=== PATIENT | female | born 1955 | race Caucasian/White ===

== ENCOUNTER 2018-12-10 19:12 | Emergency (ER) | payer MEDICAID ==
[2018-12-10] MEDS ORDERED: HYDROmorphone 1 MG/ML Syringe IM ONE ×2 (19:35→21:25)
--- NOTE | 2018-12-10 21:00 | EDM.PDOC ---
ED HPI GENERAL MEDICAL PROBLEM - General Chief Complaint: Lower Extremity Injury/Pain Stated Complaint: [facility] Time Seen by Provider: 12/10/18 19:27 Source of Information: Reports: Patient, RN Notes Reviewed History Limitations: Reports: No Limitations - History of Present Illness INITIAL COMMENTS - FREE TEXT/NARRATIVE: Patient is a 63-year-old female who presents to the ED for the evaluation of a left knee injury. She states that she was at the [employer] store when she slipped and fell with a direct blow to her left knee she felt something pop at this time. She did try to get up but was unable to get up with her left knee so she ended up sitting on her right knee for some time and also has pain in her right knee. She can move her right leg appropriately, however she is unable to move her left leg up or down but she can move it [id number]. She would rate her pain at a 10 out of 10. She did not take anything for pain relief before she was brought to the ED for evaluation. She states that she still can feel touch in her toes, and she can still wiggle her toes. She has no pain in her hip or ankle. She did not hit her head or have a loss of consciousness. Left Knee Pain Score (Numeric/FACES): 10 - Related Data Allergies Allergy/AdvReac Type Severity Reaction Status Date / Time No Known Allergies Allergy Verified 12/10/18 19:18 Home Meds: Home Meds Cetirizine [ZyrTEC] 1 tab PO DAILY 08/31/15 [History] Furosemide [Lasix] 80 mg PO DAILY 08/31/15 [History] Metoprolol Tartrate 25 mg PO BID #60 tablet 08/31/15 [Rx] Montelukast [Singulair] 1 tab PO DAILY 08/31/15 [History] Warfarin [Coumadin] 5 mg PO SUTUWEFRSA 08/31/15 [History] diphenhydrAMINE [Benadryl] 1 tab PO DAILY 08/31/15 [History] Albuterol Sulfate [Proair Hfa] 1 puff INH Q6HR PRN 07/07/16 [History] Diltiazem [Cardizem CD] 180 mg PO DAILY 07/07/16 [History] Iron/Vitamin C 1 tab PO DAILY 07/07/16 [History] Lactobacillus Combination No.4 [Probiotic] 1 each PO DAILY 07/07/16 [History] Omeprazole Magnesium [Prilosec Otc] 1 tab PO DAILY 07/07/16 [History] Potassium Chloride 20 meq PO DAILY 07/07/16 [History] Warfarin [Coumadin] 3 mg PO MOTH 07/07/16 [History] Past Medical History HEENT History: Reports: Impaired Vision, Sinusitis Other HEENT History: wears bifocals Cardiovascular History: Reports: Afib, Heart Failure Other Cardiovascular History: aflutter, vtach, lower extremity edema Respiratory History: Reports: Other (See Below) Other Respiratory History: pulmonary nodule Gastrointestinal History: Reports: GERD Other Gastrointestinal History: hepatomegaly Genitourinary History: Reports: Renal Calculus, Urinary Incontinence Other Genitourinary History: kidney stones, UTI Other [employer] History: 2 para 2 Musculoskeletal History: Reports: Back Pain, Chronic Other Musculoskeletal History: leg cramps Endocrine/Metabolic History: Reports: Obesity/BMI 30+, Other (See Below) Other Endocrine/Metabolic History: enlarged thyroid Hematologic History: Reports: Anemia, Blood Transfusion(s) Oncologic (Cancer) History: Reports: None - Past Surgical History GI Surgical History: Reports: Appendectomy - History Comment History Comment: Pt uses albuteral inhaler when she gets a sinus infection. 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 Denies: Joint Swelling Skin: Reports: No Symptoms Neurological: Reports: No Symptoms Psychiatric: Reports: No Symptoms ED EXAM, GENERAL - Physical Exam Exam: See Below Exam Limited By: No Limitations General Appearance: Alert, WD/WN, No Apparent Distress Ears: Normal External Exam Nose: Normal Inspection Throat/Mouth: Normal Inspection, Normal Oropharynx Head: Atraumatic, Normocephalic Neck: Normal Inspection Respiratory/Chest: No Respiratory Distress, Lungs Clear, Normal Breath Sounds, No Accessory Muscle Use, Chest Non-Tender Cardiovascular: Normal Peripheral Pulses, Regular Rate, Rhythm, No Murmur GI/Abdominal: Normal Bowel Sounds, Soft, Non-Tender, No Distention Back Exam: Normal Inspection Extremities: Normal Inspection, Normal Capillary Refill, Limited Range of Motion (Of left leg. She is able to move the leg from left to right, she cannot move the leg in a straight leg fashion. It is hard to bend at the knee as well.). No: Joint Swelling, Leg Pain, Mottled, Pallor Neurological: Alert, Oriented, Normal Cognition, No Motor/Sensory Deficits Psychiatric: Normal Affect, Normal Mood Skin Exam: Warm, Dry, Intact, Normal Color, No Rash Course - Vital Signs Last Recorded V/S: Last Vital Signs Temp 97.8 F 12/10/18 19:16 Pulse 81 12/10/18 19:16 Resp 17 12/10/18 19:16 BP Pulse Ox 100 12/10/18 19:16 - Orders/Labs/Meds Orders: Active Orders 24 hr Category Date Time Status Knee Min 4V Lt [CR] Stat Exams 12/10/18 19:28 Ordered Meds: Medications Discontinued Medications Generic Name Dose Route Start Last Admin Trade Name Freq PRN Reason Stop Dose Admin Hydromorphone HCl 0.5 mg 12/10/18 19:35 12/10/18 19:39 Dilaudid IM 12/10/18 19:36 0.5 mg ONETIME ONE Administration Hydromorphone HCl 1 mg 12/10/18 21:25 12/10/18 21:33 Dilaudid IM 12/10/18 21:26 1 mg ONETIME ONE Administration - Re-Assessments/Exams Free Text/Narrative Re-Assessment/Exam: 12/10/18 21:26 Patient presents to the ED for the evaluation of left knee pain. I did obtain a left knee x-ray, this did show a fractured left kneecap. His was reviewed with Dr. Jim and he states that it is a transverse fracture with minimal displacement. She has been given a total of 1.5 mg IM Dilaudid in the ER for pain management. Dr. [facility], he states that he does have a clinic opening tomorrow at 10 AM. However this is unfavorable to the family and patient has a livein [place] and it is 9:[address] Thomas gave them the option to take the [facility]'s number tomorrow and call for an appointment with Dr. Pino and possibly Sunday with possible repair this weekend, however he cannot speak to Dr. Pino's schedule so he is not aware if this is an actual possibility. He states that he would be able to see the patient at clinic on Sunday as well if she was not able to get in to see Dr. Neida Campos earlier. As for management he recommends putting the patient in a knee immobilizer, she may be weightbearing as tolerated. She will be given hydrocodone for pain management. Departure - Departure Time of Disposition: 21:30 Disposition: Home, Self-Care 01 Condition: Fair Clinical Impression: Fractured patella Qualifiers: Encounter type: initial encounter Fracture type: closed Fracture morphology: unspecified fracture morphology Fracture alignment: displaced Laterality: left Qualified Code(s): S82.002A - Unspecified fracture of left patella, initial encounter for closed fracture - Discharge Information *PRESCRIPTION DRUG MONITORING PROGRAM REVIEWED*: No *COPY OF PRESCRIPTION DRUG MONITORING REPORT IN PATIENT OPAL: No Instructions: Pain Medicine Instructions, [id number], Patellar Fracture, Adult Forms: ED Department Discharge Additional Instructions: You have been evaluated in the ED for your left knee pain. Your x-ray did demonstrate that you did fracture your left kneecap. Please call the appointment [facility] in [facility] as early as possible tomorrow for an appointment later this week with Dr. Centeno. Dr. Thomas was the orthopedist that was consulted on your case, he states that he would be able to see you on Sunday as well if Dr. Neida Sher is not available to see you this week. You have been given [place] 01/31/25 for pain relief please take this every 6 hours as needed. You may also take [id number] Tylenol 500 mg or 6R milligrams ibuprofen as needed every 6 hours for pain relief. The Gallaway tablets do have an opioid analgesic in them and can be somewhat constipating, recommend that you start taking MiraLAX on a daily basis if you are taking the Gallaway pain tablets. Also please increase her fluid intake as this will kulkarni off constipation as well. You may weight-bear as tolerated with the knee immobilizer. Please return to the ED if her symptoms change or worsen. - My Orders Last 24 Hours: My Active Orders 12/10/18 19:28 Knee Min 4V Lt [CR] Stat - Assessment/Plan Last 24 Hours: My Active Orders 12/10/18 19:28 Knee Min 4V Lt [CR] Stat
--- NOTE | 2018-12-11 08:12 | CR ---
Left knee: Four views of the left knee were obtained. Comparison: No previous knee exam. Slightly displaced fracture involving the inferior pole of the patella is seen. Medial and lateral joint compartments are maintained in height. No additional fracture or other bony abnormality is seen. Soft tissue swelling and small joint effusion is seen. Impression: 1. Slightly displaced fracture involving the inferior pole of the patella. 2. Soft tissue swelling and small joint effusion. Diagnostic code #3
== END 2018-12-10 22:03 | disposition home or self-care (01) ==
LOC: JD.ED 19:12
DX: S82.002A Unspecified fracture of left patella, initial encounter for closed fracture (principal); I50.9 Heart failure, unspecified; I48.91 Unspecified atrial fibrillation; D64.9 Anemia, unspecified; E66.9 Obesity, unspecified; Z79.899 Other long term (current) drug therapy; Z79.01 Long term (current) use of anticoagulants; Z90.49 Acquired absence of other specified parts of digestive tract; W01.0XXA Fall on same level from slipping, tripping and stumbling without subsequent striking against object, initial encounter
CPT/HCPCS: 73564; 99283; J1170

== ENCOUNTER 2018-12-18 07:32 | Day surgery (SDC) | payer MEDICAID ==
[~2018-12-18 07:32] MED LIST: Lidocaine 1% PF 2 ML SDV ONE; Lidocaine 1%/Sod Bicarbonate in NS 8.4% 1 ML Syringe IDERM PRN; Midazolam 1 MG/ML 2 ML SDV ONE; Propofol 200 MG/20 ML SDV ONE; Sodium Chloride 0.9% 10 ML Syringe FLUSH PRN; ceFAZolin 1 GM Vial ONE; fentaNYL 100 MCG/2 ML SDV ONE
[2018-12-18] MEDS ORDERED: Bupivacaine 0.25% 30 ML SDV ONE (07:54)
--- NOTE | 2018-12-18 08:00 | PCM.PREANE ---
Preanesthetic Assessment - Procedure Proposed Procedure: ORIF Left Patella fracture - Anesthesia/Transfusion/Family Hx Anesthesia History: Prior Anesthesia Without Reaction Family History of Anesthesia Reaction: No Transfusion History: Prior Transfusion Without Reaction (history after childbirth) Intubation History: Unknown - Review of Systems General: No Symptoms Pulmonary: Wheezing (in august of 2018) Cardiovascular: Dyspnea on Exertion Gastrointestinal: No Symptoms Neurological: No Symptoms Other: Reports: None - Physical Assessment NPO Status Date: 12/17/18 NPO Status Time: 22:00 Pulse: 95 O2 Sat by Pulse Oximetry: 93 Respiratory Rate: 20 Blood Pressure: 147/81 Temperature: 36.4 C Height: 1.68 m Weight: 133.6 kg ASA Class: 4 Mental Status: Alert & Oriented x3 Airway Class: Mallampati = 1 Dentition: Reports: Normal Dentition Thyro-Mental Finger Breadths: 3 Mouth Opening Finger Breadths: 4 ROM/Head Extension: Limited/Partial Lungs: Clear to Auscultation (stiff right side per patient no injury just stiff ) Cardiovascular: Regular Rate, Regular Rhythm - Lab Values: Laboratory Last Values MRSA (PCR) Negative 12/17/18 09:10 - Allergies Allergies/Adverse Reactions: Allergies Allergy/AdvReac Type Severity Reaction Status Date / Time No Known Allergies Allergy Verified 12/17/18 13:31 - Blood Blood Available: No - Anesthesia Plan Pre-Op Medication Ordered: None (took Am metroprolol ) - Acknowledgements Anesthesia Type Planned: General Anesthesia Pt an Appropriate Candidate for the Planned Anesthesia: Yes Alternatives and Risks of Anesthesia Discussed w Pt/Guardian: Yes Pt/Guardian Understands and Agrees with Anesthesia Plan: Yes PreAnesthesia Questionnaire HEENT History: Reports: Allergic Rhinitis, Impaired Vision, Sinusitis Other HEENT History: wears bifocals, partial Cardiovascular History: Reports: Afib, Arrhythmia, Heart Failure Other Cardiovascular History: aflutter, vtach, lower extremity edema Respiratory History: Reports: Other (See Below) Other Respiratory History: pulmonary nodule, dypsnea, pneumonia Gastrointestinal History: Reports: GERD Other Gastrointestinal History: hepatomegaly Genitourinary History: Reports: Renal Calculus, Urinary Incontinence Other Genitourinary History: kidney stones, UTI Other OB/BYN History: 2 para 2 Musculoskeletal History: Reports: Back Pain, Chronic Other Musculoskeletal History: leg cramps Neurological History: Reports: None Psychiatric History: Reports: None Endocrine/Metabolic History: Reports: Obesity/BMI 30+, Other (See Below) Other Endocrine/Metabolic History: enlarged thyroid Hematologic History: Reports: Anemia, Blood Transfusion(s) Immunologic History: Reports: None Oncologic (Cancer) History: Reports: None Dermatologic History: Reports: Other (See Below) Other Dermatologic History: rojas, open wounds - Past Surgical History Head Surgeries/Procedures: Reports: None Respiratory Surgical History: Reports: None GI Surgical History: Reports: Appendectomy, Colonoscopy, EGD Neurological Surgical History: Reports: None Oncologic Surgical History: Reports: None - History Comment History Comment: Pt uses albuteral inhaler when she gets a sinus infection. Denies asthma - SUBSTANCE USE Smoking Status *Q: Former Smoker Recreational Drug Use History: No - HOME MEDS Home Medications: Home Meds Furosemide [Lasix] 60 mg PO DAILY 08/31/15 [History] Metoprolol Tartrate 25 mg PO BID #60 tablet 08/31/15 [Rx] Montelukast [Singulair] 10 mg PO BEDTIME 08/31/15 [History] Warfarin [Coumadin] 5 mg PO SUTUWEFRSA 08/31/15 [History] diphenhydrAMINE [Benadryl] 25 tab PO BEDTIME 08/31/15 [History] Diltiazem [Cardizem CD] 180 mg PO DAILY 07/07/16 [History] Omeprazole Magnesium [Prilosec Otc] 20 mg PO DAILY 07/07/16 [History] Potassium Chloride 20 meq PO DAILY 07/07/16 [History] Warfarin [Coumadin] 3 mg PO MOTH 07/07/16 [History] - CURRENT (IN HOUSE) MEDS Current Meds: Current Medications Lactated Ringer's (Ringers, Lactated) 1,000 mls @ 125 mls/hr IV ASDIRECTED ROLO Stop: 12/18/18 23:00 Lidocaine/Sodium Bicarbonate (Buffered Lidocaine 1% In Ns 8.4%) 0.25 ml IDERM ONETIME PRN PRN Reason: Prior to IV Start Stop: 12/18/18 18:00 Sodium Chloride (Saline Flush) 10 ml FLUSH ASDIRECTED PRN PRN Reason: Keep Vein Open Stop: 12/18/18 18:00 Discontinued Medications Cefazolin Sodium (Ancef) Confirm Administered Dose 2 gm .ROUTE .STK-MED ONE Stop: 12/18/18 07:29 Fentanyl (Sublimaze) Confirm Administered Dose 100 mcg .ROUTE .STK-MED ONE Stop: 12/18/18 07:22 Lidocaine HCl (Xylocaine-Mpf 1%) Confirm Administered Dose 6 ml .ROUTE .STK-MED ONE Stop: 12/18/18 07:23 Midazolam HCl (Versed 1 Mg/Ml) Confirm Administered Dose 2 mg .ROUTE .STK-MED ONE Stop: 12/18/18 07:22 Propofol (Diprivan 20 Ml) Confirm Administered Dose 400 mg .ROUTE .STK-MED ONE Stop: 12/18/18 07:21
[2018-12-18] MEDS: Lactated Ringers 1,000 ML IV SCH ×2 (08:15→12:14)
[2018-12-18] MEDS ORDERED: Ondansetron 4 MG/2 ML SDV IVPUSH PRN (08:26)
[2018-12-18] MEDS ORDERED: Phenylephrine/Normal Saline 100 MCG/ML 10 ML Syringe ONE (09:00)
[2018-12-18] MEDS ORDERED: Dexamethasone 4 MG/ML SDV ONE (09:00)
[2018-12-18] MEDS ORDERED: Ondansetron 4 MG/2 ML SDV ONE ×2 (09:00→10:14)
[2018-12-18] MEDS ORDERED: Scopolamine 1.5 MG Transdermal Patch TRDERM ONE (09:00)
[2018-12-18] MEDS ORDERED: ceFAZolin 1 GM Vial ONE (09:01)
[2018-12-18] MEDS ORDERED: HYDROmorphone 0.5 MG/0.5 ML Syringe ONE ×4 (09:28→12:07)
[2018-12-18] MEDS ORDERED: EPINEPHrine 1 MG/ML SDV ONE (10:23)
[2018-12-18] MEDS ORDERED: Ropivacaine 0.5% 5 MG/ML 30 ML SDV ONE (10:23)
--- NOTE | 2018-12-18 10:45 | CR ---
Left patella: Two fluoroscopic spot views were obtained of the left patella. Study obtained utilizing C-arm device. Comparison: Prior left knee study of 12/10/18. Study shows placement of 2 pins across the patella. Patellar fracture is noted within the lower pole. Fluoroscopy time given as 57.5 seconds. Impression: 1. Procedural study as noted above. Diagnostic code #2
--- NOTE | 2018-12-18 11:00 | PCM.POSTAN ---
POST ANESTHESIA ASSESSMENT - MENTAL STATUS Mental Status: Other (drowsy) - VITAL SIGNS SaO2: 96 (2LNC ) Resp Rate: 16 Blood Pressure: 140/83 Temperature: 37.1 C - RESPIRATORY Respiratory Status: Respiratory Rate WNL, Airway Patent, O2 Saturation Stable, Supplemental Oxygen - CARDIOVASCULAR CV Status: Pulse Rate WNL, Blood Pressure Stable - GASTROINTESTINAL GI Status: No Symptoms - PAIN Pain Score: 0 - POST OP HYDRATION Hydration Status: Adequate & Stable
[2018-12-18] MEDS: fentaNYL 100 MCG/2 ML SDV IVPUSH PRN ×2 (11:15→11:35)
[2018-12-18] MEDS ORDERED: Lidocaine 1% PF 2 ML SDV ONE (11:24)
--- NOTE | 2018-12-18 12:01 | PCM.SN ---
- Free Text/Narrative Note: Left selective femoral nerve block at the adductor canal for post-procedure pain control under US guidance requested by Dr. Naidu. Time Out: 1125 Start: 1125 End: 1144 Chart reviewed. Consent signed. Questions answered. Appropriate monitors applied. Time out performed. Left mid-shaft femur identified with ultrasound, scanning medially of femur, the femoral artery in the adductor canal visualized , and the femoral nerve located laterally to the artery. The skin was prepped lateral to the ultrasound probe with chlorahexadine times two. The 21ga 4 insulated block needle was inserted under direct ultrasound guidance into the adductor canal. 25mL of 0.5% ropivacaine with 1:200,000 epinephrine was injected circumferentially around the nerve with intermittent negative aspiration noted. (Positive heme noted prior to one injection, needle redirected , and following aspirations negative). Patient tolerated the procedure well. Sterile technique noted along with sterile gloves, mask, and sterile probe cover. See picture on progress note and vital signs on nurses notes. Block completed in PACU. Mishel Trejo CRNA
[2018-12-18] MEDS ORDERED: HYDROmorphone 0.5 MG/0.5 ML Syringe IVPUSH PRN (12:09)
--- NOTE | 2018-12-18 13:45 | PCM48HPAN ---
Post Anesthesia Note - EVALUATION WITHIN 48HRS OF ANESTHETIC Vital Signs in Normal Range: Yes Patient Participated in Evaluation: Yes Respiratory Function Stable: Yes Airway Patent: Yes Cardiovascular Function Stable: Yes Hydration Status Stable: Yes Pain Control Satisfactory: Yes (/10 RN to give ORAL MEDS) Nausea and Vomiting Control Satisfactory: Yes Mental Status Recovered: Yes Pulse Rate: 95 Resp Rate: 16 Temperature: 37.1 C Blood Pressure: 140/83
[2018-12-18] MEDS: Acetaminophen/HYDROcodone 325-5 MG Tab PO PRN ×3 (14:02→20:02)
[2018-12-18 20:45] VITALS: BP 159/62
--- NOTE | 2018-12-23 07:14 | PCM.OPNOTE ---
- General Post-Op/Procedure Note Date of Surgery/Procedure: 12/18/18 Operative Procedure(s): open reduction internal fixation of left patellar fracture Pre Op Diagnosis: left inferior pole of patella fracture Post-Op Diagnosis: Same Anesthesia Technique: General ET Tube, Regional Block Primary Surgeon: Dagoberto Naidu Anesthesia Provider: [employer] Equipment Erector: Annika Rivera EBL in mLs: 30 Complications: None Condition: Good
--- NOTE | 2018-12-23 07:47 | OR ---
DATE OF OPERATION: 12/18/2018 SURGEON: Dagoberto Naidu MD OPERATION PERFORMED: Open reduction and internal fixation of left patella fracture PREOPERATIVE DIAGNOSIS: Left inferior pole of the patella fracture. POSTOPERATIVE DIAGNOSIS: Left inferior pole of the patella fracture. ANESTHESIA: General endotracheal intubation with regional block. [employer] SALES HOST/HOSTESS: Annika Rivera PA-C. ANESTHESIA PROVIDER: Yohan Ohara. ESTIMATED BLOOD LOSS: 30 mL. COMPLICATIONS: None. CONDITION: Stable. DESCRIPTION OF PROCEDURE: The patient was identified in the preop holding area. Proper site marked and identified by the surgeon. The patient was taken back to the operative theater, where after adequate anesthesia, the patient's left lower extremity was sterilely prepped and draped in the usual sterile fashion. After a nonsterile tourniquet was applied, the patient received 2 g of IV Ancef. A time-out was performed. At this time, the left lower extremity was exsanguinated. Tourniquet was insufflated to 300 mmHg. Standard anterior incision was made. This was taken down to the Kumar fascia. The fracture site was then identified. All soft tissue was taken out of the fracture site. It was irrigated and rongeured all fracture hematoma. At this time, I did attempt to put 2 guidepins for 5.0 cannulated screws, but at this time the inferior pole portion was too small to be able to adequately use cannulated screws in this region secondary to the very small nature as well as fragmented nature of the inferior pole of the patella. At this time, it was decided that I would treat this more like a patellar tendon avulsion type injury. So, at this time, a #5 FiberWire was whipstitched in a modified Krackow stitch through the patellar tendon and the bony fragment, and at this time, 2 guidepins were then placed parallel to each other on either side of the patella and a Hewson suture passer was then utilized to shuttle the #5 FiberWire to the quadriceps tendon. At this time, tension was then applied in utilizing C-arm fluoroscopy that was tensioned in the proper position for the inferior pole of the patella to have bony contact with the remaining patella. The small inferior pole of the patella fracture showed no signs of articular extension and it was just a small avulsion injury. At this time, another #5 FiberWire was used for oversewing of the retinaculum over the top of the bony fragment using [id number] sutures all the way from just short of lateral all the way medial. It was found to have adequate apposition at this point with fixation. Adequate saline was irrigated through the wound. Stratafix was used subcutaneously. Prineo was used for the skin. The patient was placed in a sterile soft dressing and sent to PACU in stable condition. COTY /[id number]
== END 2018-12-18 20:30 | disposition home or self-care (01) ==
LOC: JD.SDS 07:32 → JD.MS 15:56 → JD.SDS 20:30
PROVIDERS: ATTEND Orthopaedic Surgery
DX: S82.002A Unspecified fracture of left patella, initial encounter for closed fracture (principal); E66.01 Morbid (severe) obesity due to excess calories; Z68.42 Body mass index [BMI] 45.0-49.9, adult; K21.9 Gastro-esophageal reflux disease without esophagitis; I48.91 Unspecified atrial fibrillation; D50.9 Iron deficiency anemia, unspecified; Z79.899 Other long term (current) drug therapy
CPT/HCPCS: 27524; 36415; 64447; 76000; 85610; 87641; A9270; J0171; J0690; J1100; J1170; J2001; J2250; J2370; J2405; J2704; J2795; J3010; J3490; J7120; 01392; 64450

== ENCOUNTER 2019-12-05 16:02 | Emergency (ER) | payer MEDICAID ==
[2019-12-05 16:13] VITALS: BP 168/82; PULSE 99
[2019-12-05] MEDS ORDERED: Sodium Chloride 0.9% 10 ML Syringe FLUSH PRN (16:42)
[2019-12-05] MEDS ORDERED: Albuterol/Ipratropium 3.0-0.5 MG/3 ML Neb Soln NEB ONE (16:44)
[2019-12-05] MEDS ORDERED: Lactated Ringers 1,000 ML IV SCH (16:45)
--- NOTE | 2019-12-05 19:59 | CR ---
Chest: 2 views of the chest were obtained. Comparison: Prior chest x-ray of 09/19/18. Heart size is mildly enlarged. Pulmonary vessels are increased believed to represent pulmonary vascular congestion. Minimal thickening of the right minor fissure is seen compatible with minimal intrafissural fluid. Bony structures are unremarkable. No alveolar type densities are seen. Impression: 1. Findings radiographically have the appearance of CHF. Given the clinical history, difficult to exclude possible superimposed viral bronchitis as causing the cardiac decompensation. If no clinical findings of CHF are present, severe viral bronchitis is then within the differential. Diagnostic code #5 Study was dictated in [place] Standard Time
--- NOTE | 2019-12-05 20:15 | EDM.PDOC ---
ED HPI GENERAL MEDICAL PROBLEM - General Chief Complaint: General Stated Complaint: [facility] Time Seen by Provider: 12/05/19 16:07 Source of Information: Reports: Patient, Provider History Limitations: Reports: No Limitations - History of Present Illness INITIAL COMMENTS - FREE TEXT/NARRATIVE: The patient presents by [facility]. She was recently diagnosed with influenza A at the clinic. She has been vomiting and not keeping anything down. She easily gets pneumonia. She has been coughing. Her temp has been as high as 104. She has some low back pain. She has no chest pain or shortness of breath. She has no abdominal pain. She does have a history of A-fib but she has not been able to keep her meds down. Onset: Gradual Duration: Day(s): Severity: Moderate Improves with: Reports: None Worsens with: Reports: None Associated Symptoms: Reports: Nausea/Vomiting. Denies: Chest Pain, Cough, Fever /Chills, Headaches, Shortness of Breath Headache Pain Score (Numeric/FACES): 8 - Related Data Allergies Allergy/AdvReac Type Severity Reaction Status Date / Time No Known Allergies Allergy Verified 12/05/19 16:14 Home Meds: Home Meds Furosemide [Lasix] 60 mg PO DAILY 08/31/15 [History] Metoprolol Tartrate 25 mg PO BID #60 tablet 08/31/15 [Rx] Montelukast [Singulair] 10 mg PO BEDTIME 08/31/15 [History] Warfarin [Coumadin] 5 mg PO SUTUWEFRSA 08/31/15 [History] diphenhydrAMINE [Benadryl] 25 tab PO BEDTIME 08/31/15 [History] Diltiazem [Cardizem CD] 180 mg PO DAILY 07/07/16 [History] Omeprazole Magnesium [Prilosec Otc] 20 mg PO DAILY 07/07/16 [History] Potassium Chloride 20 meq PO DAILY 07/07/16 [History] Warfarin [Coumadin] 3 mg PO MOTH 07/07/16 [History] Cholecalciferol (Vitamin D3) [Vitamin D3] 5,000 unit PO DAILY 12/18/18 [History] Albuterol [Proventil HFA] 2 puff INH Q4H PRN #1 inhaler 12/05/19 [Rx] Doxycycline [Vibramycin] 100 mg PO BID #20 cap 12/05/19 [Rx] Hydrocodone/Acetaminophen [Hydrocodon-Acetaminophen 5-325] 1 - 2 each PO Q6HR PRN #10 tablet 12/05/19 [Rx] Ondansetron [Zofran ODT] 4 mg PO Q6H PRN #20 tab.dis 12/05/19 [Rx] Past Medical History HEENT History: Reports: Impaired Vision, Sinusitis Other HEENT History: wears bifocals Cardiovascular History: Reports: Afib, Heart Failure Other Cardiovascular History: aflutter, vtach, lower extremity edema Respiratory History: Reports: Other (See Below) Other Respiratory History: pulmonary nodule Gastrointestinal History: Reports: GERD Other Gastrointestinal History: hepatomegaly Genitourinary History: Reports: Renal Calculus, Urinary Incontinence Other Genitourinary History: kidney stones, UTI Other [employer] B[employer] WR[employer] History: 2 para 2 Musculoskeletal History: Reports: Back Pain, Chronic Other Musculoskeletal History: leg cramps Neurological History: Reports: None Psychiatric History: Reports: None Endocrine/Metabolic History: Reports: Obesity/BMI 30+, Other (See Below) Other Endocrine/Metabolic History: enlarged thyroid Hematologic History: Reports: Anemia, Blood Transfusion(s) Immunologic History: Reports: None Oncologic (Cancer) History: Reports: None Dermatologic History: Reports: Other (See Below) Other Dermatologic History: rojas, open wounds - Past Surgical History Head Surgeries/Procedures: Reports: None GI Surgical History: Reports: Appendectomy Neurological Surgical History: Reports: None Oncologic Surgical History: Reports: None - History Comment History Comment: Pt uses albuteral inhaler when she gets a sinus infection. 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 Denies: Shortness of Breath Cardiovascular: Reports: No Symptoms Endocrine: Reports: No Symptoms GI/Abdominal: Reports: Nausea, Vomiting. Denies: Abdominal Pain : Reports: No Symptoms Musculoskeletal: Reports: No Symptoms ED EXAM, GENERAL - Physical Exam Exam: See Below Exam Limited By: No Limitations General Appearance: Alert, No Apparent Distress Ears: Normal External Exam Nose: Normal Inspection Head: Atraumatic, Normocephalic Neck: Normal Inspection Respiratory/Chest: No Respiratory Distress, Decreased Breath Sounds Cardiovascular: No Edema, No Murmur, Irregularly Irregular GI/Abdominal: Soft, Non-Tender, No Organomegaly, No Mass Back Exam: Normal Inspection Extremities: Normal Inspection EKG INTERPRETATION EKG Date: 12/05/19 Time: 17:02 Rhythm: A-Fib Rate (Beats/Min): 96 [place]: Normal QRS: Normal ST-T: Normal QT: Normal Course - Vital Signs Last Recorded V/S: Last Vital Signs Temp 101.2 F H 12/05/19 16:09 Pulse 99 12/05/19 16:09 Resp 18 12/05/19 16:09 BP 168/82 H 12/05/19 16:09 Pulse Ox 100 12/05/19 16:44 - Orders/Labs/Meds Orders: Active Orders 24 hr Category Date Time Status EKG Documentation Completion [RC] ASDIRECTED Care 12/05/19 16:45 Active Peripheral IV Care [RC] . DIRECTED Care 12/05/19 16:42 Active RT Aerosol Therapy [RC] ASDIRECTED Care 12/05/19 16:44 Active HYDROmorphone [Dilaudid] Med 12/05/19 20:30 Once 0.5 mg IVPUSH ONETIME ONE Lactated Ringers [Ringers, Lactated] 1,000 ml Med 12/05/19 16:45 Active IV ASDIRECTED Sodium Chloride 0.9% [Saline Flush] Med 12/05/19 16:42 Active 10 ml FLUSH ASDIRECTED PRN ED Antiemetic Medication Reflex [OM.PC] Stat Oth 12/05/19 16:42 Ordered Peripheral IV Insertion Adult [OM.PC] Stat Oth 12/05/19 16:42 Ordered EKG 12 Lead [EK] Stat Ther 12/05/19 16:44 Ordered Medication Orders Lactated Ringer's (Ringers, Lactated) 1,000 mls @ 1,000 mls/hr IV ASDIRECTED ROLO Last Admin: 12/05/19 17:09 Dose: 1,000 mls/hr Sodium Chloride (Saline Flush) 10 ml FLUSH ASDIRECTED PRN PRN Reason: Keep Vein Open Last Admin: 12/05/19 17:10 Dose: 10 ml Labs: Laboratory Tests 12/05/19 12/05/19 12/05/19 Range/Units 17:03 17:03 18:05 WBC 6.14 (3.98-10.04) K/mm3 RBC 4.11 (3.98-5.22) M/mm3 Hgb 10.5 L (11.2-15.7) gm/dl Hct 33.9 L (34.1-44.9) % MCV 82.5 (79.4-94.8) fl MCH 25.5 L (25.6-32.2) pg MCHC 31.0 L (32.2-35.5) g/dl RDW Std Deviation 55.6 H (36.4-46.3) fL Plt Count 190 D (182-369) K/mm3 MPV 9.7 (9.4-12.3) fl Neut % (Auto) 80.1 H (34.0-71.1) % Lymph % (Auto) 9.6 L (19.3-51.7) % [place] % (Auto) 9.6 (4.7-12.5) % Eos % (Auto) 0 L (0.7-5.8) Baso % (Auto) 0.2 (0.1-1.2) % Neut # (Auto) 4.92 (1.56-6.13) K/mm3 Lymph # (Auto) 0.59 L (1.18-3.74) K/mm3 [place] # (Auto) 0.59 H (0.24-0.36) K/mm3 Eos # (Auto) 0.00 L (0.04-0.36) K/mm3 Baso # (Auto) 0.01 (0.01-0.08) K/mm3 Manual Slide Review Abnormal smear Sodium 139 (136-145) mEq/L Potassium 3.6 (3.5-5.1) mEq/L Chloride 107 (98-107) mEq/L Carbon Dioxide 23 (21-32) mEq/L Anion Gap 12.6 (5-15) BUN 13 (7-18) mg/dL Creatinine 0.7 (0.55-1.02) mg/dL Est Cr Clr Drug Dosing 77.01 mL/min Estimated GFR (MDRD) > 60 (>60) mL/min BUN/Creatinine Ratio 18.6 H (14-18) Glucose 96 (80-115) mg/dL Calcium 7.9 L D (8.5-10.1) mg/dL Total Bilirubin 0.5 (0.2-1.0) mg/dL AST 23 (15-37) U/L ALT 31 (14-59) U/L Alkaline Phosphatase 63 (46-116) U/L Total Protein 6.2 L (6.4-8.2) g/dl Albumin 3.1 L (3.4-5.0) g/dl Globulin 3.1 gm/dL Albumin/Globulin Ratio 1.0 (1-2) Lipase 96 (73-393) U/L Urine Color Yellow (Yellow) Urine Appearance Clear (Clear) Urine pH 7.0 (5.0-8.0) Ur Specific [place] 1.025 (1.005-1.030) Urine Protein Negative (Negative) Urine Glucose (UA) Negative (Negative) Urine Ketones Negative (Negative) Urine Occult Blood Negative (Negative) Urine Nitrite Negative (Negative) Urine Bilirubin Negative (Negative) Urine Urobilinogen 4.0 H (0.2-1.0) Ur Leukocyte Esterase Trace H (Negative) Urine RBC 0-5 (0-5) /hpf Urine WBC 0-5 (0-5) /hpf Ur Squamous Epith Cells 10-20 H (0-5) /hpf Urine Bacteria Few (FEW) /hpf Urine Mucus Few (FEW) /hpf Meds: Medications Generic Name Dose Route Start Last Admin Trade Name Freq PRN Reason Stop Dose Admin Lactated Ringer's 1,000 mls @ 1,000 mls/hr 12/05/19 16:45 12/05/19 17:09 Ringers, Lactated IV 1,000 mls/hr ASDIRECTED ROLO Administration Sodium Chloride 10 ml 12/05/19 16:42 12/05/19 17:10 Saline Flush FLUSH 10 ml ASDIRECTED PRN Administration Keep Vein Open Discontinued Medications Generic Name Dose Route Start Last Admin Trade Name Freq PRN Reason Stop Dose Admin Albuterol/Ipratropium 3 ml 12/05/19 16:44 12/05/19 17:53 Duoneb 3.0-0.5 Mg/3 Ml NEB 12/05/19 16:45 3 ml ONETIME ONE Administration - Re-Assessments/Exams Free Text/Narrative Re-Assessment/Exam: 12/05/19 20:10 I ordered an IV LR bolus, duoneb, CXR and labs. Her EKG shows atrial fibrillation with no acute changes. Her WBC was normal. Her Hgb was low at 10.5. Her CMP looks good. Her UA shows no UTI. Her CXR shows findings radiographically have the appearance of CHF. Given the clinical history, difficult to exclude possible superimposed viral bronchitis as causing the cardiac decompensation. If no clinical findings of CHF are present, several viral bronchitis is then within the differential. 12/05/19 20:30 She has some back pain so I ordered some dilaudid 0.5mg IV. She says she gets pneumonia very easily. I will get her some zithromax. I will also give her some zofran. I will also give her an inhaler. Departure - Departure Time of Disposition: 20:35 Disposition: Home, Self-Care 01 Condition: Good Clinical Impression: Influenza A, Bronchitis Nausea and vomiting Qualifiers: Vomiting type: unspecified Vomiting Intractability: non-intractable Qualified Code(s): R11.2 - Nausea with vomiting, unspecified - Discharge Information *PRESCRIPTION DRUG MONITORING PROGRAM REVIEWED*: No *COPY OF PRESCRIPTION DRUG MONITORING REPORT IN PATIENT OPAL: No Prescriptions: Hydrocodone/Acetaminophen [Hydrocodon-Acetaminophen 5-325] 1 - 2 each PO Q6HR PRN #10 tablet PRN Reason: Pain Doxycycline [Vibramycin] 100 mg PO BID #20 cap Ondansetron [Zofran ODT] 4 mg PO Q6H PRN #20 tab.dis PRN Reason: Nausea\vomiting Referrals: Rachelle Tao PA-C [Primary Care Provider] - 3 Days Forms: ED Department Discharge Additional Instructions: Drink plenty of fluids. Take the zofran every 6 hours as needed for nausea and vomiting. Take the doxycycline 2 times per day for 7 days. Take the hydrocodone as needed for pain. Use the inhaler 2 puffs every 6 hours as needed for any shortness of breath. Please return if you are worse. Sepsis Event Note - Evaluation Sepsis Screening Result: Possible Sepsis Risk - Focused Exam Vital Signs: Vital Signs Temp Pulse Resp BP Pulse Ox Pulse Ox 12/05/19 16:44 100 12/05/19 16:09 101.2 F H 99 18 168/82 H 96 Date Exam was Performed: 12/05/19 Time Exam was Performed: 20:30 - My Orders Last 24 Hours: My Active Orders 12/05/19 16:42 Peripheral IV Care [RC] . DIRECTED Sodium Chloride 0.9% [Saline Flush] 10 ml FLUSH ASDIRECTED PRN ED Antiemetic Medication Reflex [OM.PC] Stat Peripheral IV Insertion Adult [OM.PC] Stat 12/05/19 16:44 RT Aerosol Therapy [RC] ASDIRECTED EKG 12 Lead [EK] Stat 12/05/19 16:45 EKG Documentation Completion [RC] ASDIRECTED Lactated Ringers [Ringers, Lactated] 1,000 ml IV ASDIRECTED 12/05/19 20:30 HYDROmorphone [Dilaudid] 0.5 mg IVPUSH ONETIME ONE - Assessment/Plan Last 24 Hours: My Active Orders 12/05/19 16:42 Peripheral IV Care [RC] . DIRECTED Sodium Chloride 0.9% [Saline Flush] 10 ml FLUSH ASDIRECTED PRN ED Antiemetic Medication Reflex [OM.PC] Stat Peripheral IV Insertion Adult [OM.PC] Stat 12/05/19 16:44 RT Aerosol Therapy [RC] ASDIRECTED EKG 12 Lead [EK] Stat 12/05/19 16:45 EKG Documentation Completion [RC] ASDIRECTED Lactated Ringers [Ringers, Lactated] 1,000 ml IV ASDIRECTED 12/05/19 20:30 HYDROmorphone [Dilaudid] 0.5 mg IVPUSH ONETIME ONE
[2019-12-05] MEDS ORDERED: HYDROmorphone 0.5 MG/0.5 ML Syringe IVPUSH ONE (20:30)
== END 2019-12-05 22:34 | disposition home or self-care (01) ==
LOC: JD.ED 16:02
DX: J10.1 Influenza due to other identified influenza virus with other respiratory manifestations (principal); I48.91 Unspecified atrial fibrillation; I50.9 Heart failure, unspecified; K21.9 Gastro-esophageal reflux disease without esophagitis; E66.9 Obesity, unspecified; Z79.01 Long term (current) use of anticoagulants; Z79.899 Other long term (current) drug therapy; Z68.42 Body mass index [BMI] 45.0-49.9, adult
CPT/HCPCS: 36415; 71046; 80053; 81001; 83690; 85025; 93005; 94640; 96361; 96374; 99285; J1170; J7120; 93010; 99284; J7620-GY

== ENCOUNTER 2019-12-11 12:45 | Inpatient (IN) | payer MEDICAID ==
[2019-12-11] MEDS ORDERED: Albuterol/Ipratropium 3.0-0.5 MG/3 ML Neb Soln NEB ONE (14:45)
[2019-12-11] MEDS ORDERED: methylPREDNISolone Sodium Succinate 125 MG/2 ML SDV IVPUSH ONE (14:46)
[2019-12-11] MEDS ORDERED: Albuterol/Ipratropium 3.0-0.5 MG/3 ML Neb Soln ONE (15:00)
[2019-12-11] MEDS ORDERED: cefTRIAXone 2 GM in Sodium Chloride 0.9% 100 ML IV ONE (15:06)
[2019-12-11] MEDS ORDERED: Ondansetron 4 MG Tab.DIS PO PRN (15:59)
[2019-12-11] MEDS ORDERED: Acetaminophen 325 MG Tab PO PRN (15:59)
[2019-12-11] MEDS ORDERED: Ondansetron 4 MG/2 ML SDV IV PRN (15:59)
--- NOTE | 2019-12-11 15:59 | PCM.HP.2 ---
<Sukhwinder Ferrera - Last Filed: 12/11/19 16:49> H&P History of Present Illness - General Date of Service: 12/11/19 Admit Problem/Dx: Admission Diagnosis/Problem Admission Diagnosis/Problem Pneumonia Source of Information: RN Notes Reviewed - Related Data Allergies/Adverse Reactions: Allergies Allergy/AdvReac Type Severity Reaction Status Date / Time No Known Allergies Allergy Verified 12/11/19 17:17 Home Medications: Home Meds Metoprolol Tartrate 25 mg PO BID #60 tablet 08/31/15 [Rx] Montelukast [Singulair] 10 mg PO BEDTIME 08/31/15 [History] diphenhydrAMINE [Benadryl] 25 mg PO BEDTIME 08/31/15 [History] Diltiazem [Cardizem CD] 180 mg PO DAILY 07/07/16 [History] Cholecalciferol (Vitamin D3) [Vitamin D3] 5,000 unit PO DAILY 12/18/18 [History] Albuterol [Proventil HFA] 2 puff INH Q4H PRN #1 inhaler 12/05/19 [Rx] allopurinoL [Zyloprim] 200 mg PO DAILY 12/11/19 [History] Furosemide [Lasix] 60 mg PO BIDDIURETIC #45 tablet 12/15/19 [Rx] Potassium Chloride 40 meq PO DAILY #60 tab.er.prt 12/15/19 [Rx] Warfarin [Coumadin] 5 mg PO QPM #30 tablet 12/15/19 [Rx] H&P Review of Systems - Review of Systems: Neurological: Reports: Dizziness, Weakness Exam - Vital Signs Vital Signs: Last Vital Signs Temp 97.8 F 12/11/19 12:52 Pulse 69 12/11/19 12:52 Resp 20 12/11/19 12:52 BP 143/73 H 12/11/19 12:52 Pulse Ox 84 L 12/11/19 14:46 - Patient Data Lab Results Last 24 hrs: Laboratory Results - last 24 hr 12/11/19 12/11/19 12/11/19 Range/Units 11:30 11:30 11:30 WBC 3.01 L (3.98-10.04) K/mm3 RBC 4.78 (3.98-5.22) M/mm3 Hgb 11.9 (11.2-15.7) gm/dl Hct 37.2 (34.1-44.9) % MCV 77.8 L D (79.4-94.8) fl MCH 24.9 L (25.6-32.2) pg MCHC 32.0 L (32.2-35.5) g/dl RDW Std Deviation 51.2 H (36.4-46.3) fL Plt Count 229 (182-369) K/mm3 MPV 10.3 (9.4-12.3) fl Neutrophils % (Manual) 66 H (40-60) % Band Neutrophils % 0 (0-10) % Lymphocytes % (Manual) 24 (20-40) % Atypical Lymphs % 0 % Monocytes % (Manual) 6 (2-10) % Eosinophils % (Manual) 4 (0.7-5.8) % Basophils % (Manual) 0 L (0.1-1.2) Platelet Estimate Adequate Poikilocytosis 1+ slight Anisocytosis 1+ slight RBC Morph Comment Not Reportable PT (9.7-12.0) SECONDS INR Puncture Site ABG pH (7.35-7.45) ABG pCO2 (35.0-45.0) mmHg ABG pO2 (80.0-100.0) mmHg ABG HCO3 (22.0-26.0) meq/L ABG O2 Saturation (96.0-97.0) % ABG Base Excess (-2-2.0) Devin Test A-a Gradient mmHg O2 Delivery Device FiO2 (21.00-100.00) % Sodium 142 (136-145) mEq/L Potassium 3.2 L (3.5-5.1) mEq/L Chloride 105 (98-107) mEq/L Carbon Dioxide 27 (21-32) mEq/L Anion Gap 13.2 (5-15) BUN 23 H (7-18) mg/dL Creatinine 1.1 H (0.55-1.02) mg/dL Est Cr Clr Drug Dosing 49.00 mL/min Estimated GFR (MDRD) 50 (>60) mL/min BUN/Creatinine Ratio 20.9 H (14-18) Glucose 110 (80-115) mg/dL Lactic Acid (0.4-2.0) mmol/L Calcium 8.5 (8.5-10.1) mg/dL Total Bilirubin 0.6 (0.2-1.0) mg/dL AST 82 H (15-37) U/L ALT 40 (14-59) U/L Alkaline Phosphatase 90 (46-116) U/L C-Reactive Protein 9.8 H* (<1.0) mg/dL Total Protein 6.3 L (6.4-8.2) g/dl Albumin 3.0 L (3.4-5.0) g/dl Globulin 3.3 gm/dL Albumin/Globulin Ratio 0.9 L (1-2) 12/11/19 12/11/19 12/11/19 Range/Units 11:30 13:59 15:13 WBC (3.98-10.04) K/mm3 RBC (3.98-5.22) M/mm3 Hgb (11.2-15.7) gm/dl Hct (34.1-44.9) % MCV (79.4-94.8) fl MCH (25.6-32.2) pg MCHC (32.2-35.5) g/dl RDW Std Deviation (36.4-46.3) fL Plt Count (182-369) K/mm3 MPV (9.4-12.3) fl Neutrophils % (Manual) (40-60) % Band Neutrophils % (0-10) % Lymphocytes % (Manual) (20-40) % Atypical Lymphs % % Monocytes % (Manual) (2-10) % Eosinophils % (Manual) (0.7-5.8) % Basophils % (Manual) (0.1-1.2) Platelet Estimate Poikilocytosis Anisocytosis RBC Morph Comment PT 31.0 H D (9.7-12.0) SECONDS INR 3.03 Puncture Site Lt radial ABG pH 7.48 H (7.35-7.45) ABG pCO2 32.9 L (35.0-45.0) mmHg ABG pO2 54.0 L (80.0-100.0) mmHg ABG HCO3 23.9 (22.0-26.0) meq/L ABG O2 Saturation 84.9 L (96.0-97.0) % ABG Base Excess 1.2 (-2-2.0) Devin Test Positive A-a Gradient 55 mmHg O2 Delivery Device Room air FiO2 21.00 (21.00-100.00) % Sodium (136-145) mEq/L Potassium (3.5-5.1) mEq/L Chloride (98-107) mEq/L Carbon Dioxide (21-32) mEq/L Anion Gap (5-15) BUN (7-18) mg/dL Creatinine (0.55-1.02) mg/dL Est Cr Clr Drug Dosing mL/min Estimated GFR (MDRD) (>60) mL/min BUN/Creatinine Ratio (14-18) Glucose (80-115) mg/dL Lactic Acid 0.8 (0.4-2.0) mmol/L Calcium (8.5-10.1) mg/dL Total Bilirubin (0.2-1.0) mg/dL AST (15-37) U/L ALT (14-59) U/L Alkaline Phosphatase (46-116) U/L C-Reactive Protein (<1.0) mg/dL Total Protein (6.4-8.2) g/dl Albumin (3.4-5.0) g/dl Globulin gm/dL Albumin/Globulin Ratio (1-2) Result Diagrams: 12/11/19 11:30 12/11/19 11:30 Sepsis Event Note - Focused Exam Vital Signs: Vital Signs Temp Pulse Resp BP Pulse Ox Pulse Ox 12/11/19 14:46 84 L 12/11/19 12:52 97.8 F 69 20 143/73 H 83 L Date Exam was Performed: 12/11/19 Time Exam was Performed: 16:49 Orders Last 24hrs: Active Orders 24 hr Category Date Time Status Patient Status [ADT] Routine ADT 12/11/19 15:59 Active Ambulate [RC] ASDIRECTED Care 12/11/19 15:59 Active EKG 12 Lead [EKG Documentation Completion] [RC] STAT Care 12/11/19 13:13 Active Height and Weight [RC] DAILY Care 12/11/19 15:59 Active Intake and Output [RC] QSHIFT Care 12/11/19 16:02 Active Oxygen Therapy [RC] ASDIRECTED Care 12/11/19 14:46 Active Pulse Oximetry [RC] Q4HR Care 12/11/19 16:02 Active RT Aerosol Therapy [RC] ASDIRECTED Care 12/11/19 14:46 Active RT Aerosol Therapy [RC] ASDIRECTED Care 12/11/19 16:00 Active Up With Assistance [RC] ASDIRECTED Care 12/11/19 15:59 Active VTE/DVT Education [RC] PER UNIT ROUTINE Care 12/11/19 15:59 Active Vital Signs [RC] Q4H Care 12/11/19 15:59 Active OT Evaluation and Treatment [CONS] Routine Cons 12/11/19 15:59 Active PT Evaluation and Treatment [CONS] Routine Cons 12/11/19 15:59 Active Respiratory Care Assess and Treatment [CONS] Routine Cons 12/11/19 15:59 Active Regular Diet [DIET] Diet 12/11/19 Dinner Active CXR [Chest 2V] [CR] Stat Exams 12/11/19 13:57 Taken BASIC METABOLIC PANEL,BMP [CHEM] AM Lab 12/12/19 05:11 Ordered CBC WITH AUTO DIFF [HEME] AM Lab 12/12/19 05:11 Ordered CULTURE BLOOD [BC] Stat Lab 12/11/19 15:20 Received CULTURE BLOOD [BC] Stat Lab 12/11/19 15:27 Received INR,PT,PROTHROMBIN TIME [COAG] DAILY Lab 12/11/19 16:00 Ordered LACTATE DEHYDROGENASE,LDH [CHEM] Stat Lab 12/11/19 11:30 Received MAGNESIUM [CHEM] AM Lab 12/12/19 05:11 Ordered MYCOPLASMA PNEUMONIAE IGM AB [CHEM] Stat Lab 12/11/19 11:30 Received PHOSPHORUS [CHEM] AM Lab 12/12/19 05:11 Ordered PROCALCITONIN [REF] Q48H Lab 12/13/19 05:00 Ordered PROCALCITONIN [REF] Q48H Lab 12/15/19 05:00 Ordered PROCALCITONIN [REF] Q48H Lab 12/17/19 05:00 Ordered PROCALCITONIN [REF] Stat Lab 12/11/19 15:59 Ordered RESPIRATORY PANEL PCR [MREF] Stat Lab 12/11/19 15:59 Ordered SEDIMENTATION RATE AUTO [HEME] Stat Lab 12/11/19 11:30 Received STREP PNEUMONIAE ANTIGEN [MREF] Stat Lab 12/11/19 15:59 Ordered Acetaminophen [Tylenol] Med 12/11/19 15:59 Ordered 650 mg PO Q4H PRN Acetylcysteine [Mucomyst 20%] Med 12/11/19 21:00 Ordered 800 mg NEB BIDRT Benzonatate [Tessalon Perles] Med 12/11/19 21:00 Ordered 100 mg PO TID Ipratropium [Atrovent] Med 12/11/19 18:00 Ordered 0.5 mg NEB Q4HRRT Ondansetron [Zofran ODT] Med 12/11/19 15:59 Ordered 4 mg PO Q6H PRN Ondansetron [Zofran] Med 12/11/19 15:59 Ordered 4 mg IV Q6H PRN guaiFENesin [Mucinex] Med 12/11/19 21:00 Ordered 600 mg PO TID Anticoagulation Contraindications VTE [AST] Per Unit Oth 12/11/19 15:59 Ordered Routine Isolation [COMM] Routine Oth 12/11/19 16:00 Ordered Resuscitation Status Routine Resus Stat 12/11/19 15:59 Ordered Medication Orders Acetaminophen (Tylenol) 650 mg PO Q4H PRN PRN Reason: Pain (Mild 1-3)/fever Acetylcysteine (Mucomyst 20%) 800 mg NEB BIDRT ROLO Benzonatate (Tessalon Perles) 100 mg PO TID ROLO Guaifenesin (Mucinex) 600 mg PO TID ROLO Ipratropium [place] (Atrovent) 0.5 mg NEB Q4HRRT ROLO Ondansetron HCl (Zofran Odt) 4 mg PO Q6H PRN PRN Reason: nausea, able to take PO Ondansetron HCl (Zofran) 4 mg IV Q6H PRN PRN Reason: Nausea/Vomiting <Leann Beckford - Last Filed: 12/16/19 20:14> H&P History of Present Illness - History of Present Illness Initial Comments - Free Text/Narative: This is a 64 year old female with past medical history of atrial fibrillation who comes to the ED for worsening shortness of breath. As per patient she was in usual state of health until last Sunday when she started having coughing spells that wouldn't stop until causing her to vomit associated with fever that continued to worsen for which on Sunday she decided to go to clinic in [place] where she was evaluated and found to have a temperature of 103.6--> she was given some IV fluids and repeat temp was 104.9. A flu swab was done and she was diagnosed with influenza A She was then sent to ER for further evaluation, once in the ED she was given IV fluids and antibiotics, discharged on nebulizations, PRN albuterol and antibiotics. She went home and continued to worsen as well as progressive worsening of respiratory status with inability to lay down without getting short of breath for which she went back to clinic today and was sent to the ED. No fevers since Sunday. Grandson diagnosed with Flu A last week. Associated with productive cough of clear sputum, coughing spells that end with vomiting, sore throat, nasal congestion, postnasal drip and upset stomach with anorexia. Past Medical History HEENT History: Reports: Impaired Vision, Sinusitis Other HEENT History: wears bifocals Cardiovascular History: Reports: Afib, Heart Failure Other Cardiovascular History: aflutter, vtach, lower extremity edema Respiratory History: Reports: Other (See Below) Other Respiratory History: pulmonary nodule Gastrointestinal History: Reports: GERD Other Gastrointestinal History: hepatomegaly Genitourinary History: Reports: Renal Calculus, Urinary Incontinence Other Genitourinary History: kidney stones, UTI Other OB/BYN History: 2 para 2 Musculoskeletal History: Reports: Back Pain, Chronic, Fracture Other Musculoskeletal History: leg cramps Neurological History: Reports: None Psychiatric History: Reports: None Endocrine/Metabolic History: Reports: Obesity/BMI 30+, Other (See Below) Other Endocrine/Metabolic History: enlarged thyroid Hematologic History: Reports: Anemia, Blood Transfusion(s) Immunologic History: Reports: None Oncologic (Cancer) History: Reports: None Dermatologic History: Reports: Other (See Below) Other Dermatologic History: rojas, open wounds - Infectious Disease History Infectious Disease History: Reports: Chicken Pox, Influenza, Measles, MRSA - Past Surgical History Head Surgeries/Procedures: Reports: None GI Surgical History: Reports: Appendectomy Neurological Surgical History: Reports: None Musculoskeletal Surgical History: Reports: Other (See Below) Other Musculoskeletal Surgeries/Procedures:: fx--patella with surgery. Oncologic Surgical History: Reports: None - History Comment History Comment: Pt uses albuteral inhaler when she gets a sinus infection. 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 Denies: Weight Loss, Weight Gain HEENT: Reports: Rhinitis, Post Nasal Drip, Sinus Congestion, Sore Throat. Denies: Headaches, Vertigo, Visual Changes Pulmonary: Reports: Shortness of Breath, Cough, Sputum. Denies: Wheezing, Pleuritic Chest Pain, Hemoptysis Cardiovascular: Reports: Dyspnea on Exertion, Orthopnea, PND, Syncope. Denies: Chest Pain, Palpitations, Edema, Lightheadedness Gastrointestinal: Reports: Anorexia, Decreased Appetite, Nausea, Vomiting. Denies: Abdominal Pain, Black Stool, Bloody Stool, Constipation, Diarrhea, Difficulty Swallowing, Distension, Flatus, Hematemesis, Hematochezia, Melena, Mucous in Stool, Stool Incontinence Genitourinary: Denies: Dysuria, Frequency, Burning, Pain, Urgency, Incontinence Musculoskeletal: Denies: Joint Pain, Joint Swelling, Muscle Pain, Muscle Stiffness Skin: Denies: Cyanosis, Jaundice, Mottled, Pallor, Diaphoresis Psychiatric: Denies: Confusion, Depression, Mood Lability, Anxiety Neurological: Reports: Dizziness, Weakness. Denies: Confusion, Headache, Numbness Exam - Exam Exam: See Below - Vital Signs Vital Signs: Last Vital Signs Temp 97.8 F 12/11/19 12:52 Pulse 69 12/11/19 12:52 Resp 20 12/11/19 12:52 BP 143/73 H 12/11/19 12:52 Pulse Ox 84 L 12/11/19 14:46 Weight: 133.356 kg - Exam Quality Assessment: Supplemental Oxygen, Other (confounded by body habitus) General: Alert, Oriented, Cooperative, Mild Distress HEENT: Conjunctiva Clear, EACs Clear, EOMI, Hearing Intact, Mucosa Moist & Disputanta , Nares Patent, Normal Nasal Septum Neck: Supple, Trachea Midline, +2 Carotid Pulse wo Bruit, Full Range of Motion. No: Lymphadenopathy Lungs: Decreased Breath Sounds, Crackles. No: Rales, Rhonchi, Rub, Stridor, Wheezing Cardiovascular: Regular Rate, Regular Rhythm. No: Systolic Murmur, Diastolic Murmur, Rubs, Gallop/S3, Gallop/S4 GI/Abdominal Exam: Soft, Distended. No: Guarding, Rigid, Rebound, Tender Extremities: Normal Inspection, Non-Tender, Pedal Edema, Slow Capillary Refill Skin: Warm, Dry Neuro Extensive - Mental Status: Alert, Oriented x3, Normal Mood/Affect, Normal Cognition, Memory Intact Psychiatric: Alert, Anxious - Patient Data Result Diagrams: 12/14/19 10:00 12/15/19 10:15 Sepsis Event Note - Evaluation Sepsis Screening Result: No Definite Risk - Focused Exam Vital Signs: Vital Signs Temp Pulse Resp BP Pulse Ox Pulse Ox 12/11/19 14:46 84 L 12/11/19 12:52 97.8 F 69 20 143/73 H 83 L Date Exam was Performed: 12/16/19 Time Exam was Performed: 20:05 - Problem List (1) Bilateral pneumonia SNOMED Code(s): 334411065 ICD Code: J18.9 - PNEUMONIA, UNSPECIFIED ORGANISM Status: Acute (2) Influenza A SNOMED Code(s): 437173609 ICD Code: J10.1 - FLU DUE TO OTH IDENT INFLUENZA VIRUS W OTH RESP MANIFEST Status: Acute (3) Nausea and vomiting SNOMED Code(s): 45704841 ICD Code: R11.2 - NAUSEA WITH VOMITING, UNSPECIFIED Status: Acute Qualifiers: Vomiting type: unspecified Vomiting Intractability: non-intractable Qualified Code(s): R11.2 - Nausea with vomiting, unspecified (4) Chronic kidney disease (CKD), stage III (moderate) SNOMED Code(s): 547817887 ICD Code: N18.3 - CHRONIC KIDNEY DISEASE, STAGE 3 (MODERATE) Status: Acute (5) Hypoalbuminemia SNOMED Code(s): 681541165 ICD Code: E88.09 - OT DISORDERS OF PLASMA-PROTEIN METABOLISM, NEC Status: Acute (6) Atrial fibrillation SNOMED Code(s): 89770753 ICD Code: I48.91 - UNSPECIFIED ATRIAL FIBRILLATION Status: Acute (7) Supratherapeutic INR SNOMED Code(s): 067518147 ICD Code: R79.1 - ABNORMAL COAGULATION PROFILE Status: Acute (8) Acute hypoxemic respiratory failure SNOMED Code(s): 427976399 ICD Code: J96.01 - ACUTE RESPIRATORY FAILURE WITH HYPOXIA Status: Acute Problem List Initiated/Reviewed/Updated: Yes Assessment/Plan Comment:: DOA - Already diagnosed with influenza A form grandson - Worsening shortness of breath + orthopnea and PND - O2 sat on admission 83% on RA--> placed on NC - CXR with signs of vascular congestion, cant rule out PNA - Crackles and wheezing on physical exam - GFR 49, unknown baseline - INR 3.03 Bilateral pneumonia Acute hypoxemic respiratory failure Heart failure exacerbation Influenza A - Rocephin and Azithromycin - Respiratory panel - Procalcitonin Atrial fibrillation, on warfarin Supratherapeutic INR - Hold warfarin - Monitor HR Chronic kidney disease (CKD), stage III (moderate) - Renally dosed medications - Monitor urine output - Avoid nephrotoxic agents Hypoalbuminemia - Prealbumin level - Dietary consult PROPHYLAXIS DVT- compression stockings GI-not indicated CODE STATUS: FULL CODE DISPOSITION: Patient will be admitted for IV antibiotics and monitorization of respiratory status as well as scheduled breathing treatments. - Mortality Measure Prognosis:: Good
--- NOTE | 2019-12-11 16:48 | EDM.PDOC ---
ED HPI GENERAL MEDICAL PROBLEM - General Chief Complaint: Respiratory Problem Stated Complaint: [facility] Time Seen by Provider: 12/11/19 13:55 Source of Information: Reports: Patient, RN Notes Reviewed - History of Present Illness INITIAL COMMENTS - FREE TEXT/NARRATIVE: 64 yr old female has been transferred here from the [facility] for eval of worsening cough, difficulty breathing, hypoxia, pneumonia. She first became ill about 8 days ago, was evaluated and tested pos. for Flu A last Sunday 6 days ago. The fever/chills have resolved but the cough has kept getting worse and also worsening dyspnea over the last few days, quite severe today. At [facility] this past AM sats were in the low 80's, CXR showed pneumonia. Transferred here for hospital admission. - Related Data Allergies Allergy/AdvReac Type Severity Reaction Status Date / Time No Known Allergies Allergy Verified 12/11/19 17:17 Home Meds: Home Meds Furosemide [Lasix] 60 mg PO DAILY 08/31/15 [History] Metoprolol Tartrate 25 mg PO BID #60 tablet 08/31/15 [Rx] Montelukast [Singulair] 10 mg PO BEDTIME 08/31/15 [History] Warfarin [Coumadin] 5 mg PO [id number] 08/31/15 [History] diphenhydrAMINE [Benadryl] 25 tab PO BEDTIME 08/31/15 [History] Diltiazem [Cardizem CD] 180 mg PO DAILY 07/07/16 [History] Omeprazole Magnesium [Prilosec Otc] 40 mg PO DAILY 07/07/16 [History] Potassium Chloride 20 meq PO DAILY 07/07/16 [History] Warfarin [Coumadin] 3 mg PO MOTH 07/07/16 [History] Cholecalciferol (Vitamin D3) [Vitamin D3] 5,000 unit PO DAILY 12/18/18 [History] Albuterol [Proventil HFA] 2 puff INH Q4H PRN #1 inhaler 12/05/19 [Rx] Doxycycline [Vibramycin] 100 mg PO BID #20 cap 12/05/19 [Rx] Ondansetron [Zofran ODT] 4 mg PO Q6H PRN #20 tab.dis 12/05/19 [Rx] allopurinoL [Zyloprim] 200 mg PO DAILY 12/11/19 [History] Past Medical History HEENT History: Reports: Impaired Vision, Sinusitis Other HEENT History: wears bifocals Cardiovascular History: Reports: Afib, Heart Failure Other Cardiovascular History: aflutter, vtach, lower extremity edema Respiratory History: Reports: Other (See Below) Other Respiratory History: pulmonary nodule Gastrointestinal History: Reports: GERD Other Gastrointestinal History: hepatomegaly Genitourinary History: Reports: Renal Calculus, Urinary Incontinence Other Genitourinary History: kidney stones, UTI Other TIP CUTTER History: 2 para 2 Musculoskeletal History: Reports: Back Pain, Chronic, Fracture Other Musculoskeletal History: leg cramps Neurological History: Reports: None Psychiatric History: Reports: None Endocrine/Metabolic History: Reports: Obesity/BMI 30+, Other (See Below) Other Endocrine/Metabolic History: enlarged thyroid Hematologic History: Reports: Anemia, Blood Transfusion(s) Immunologic History: Reports: None Oncologic (Cancer) History: Reports: None Dermatologic History: Reports: Other (See Below) Other Dermatologic History: rojas, open wounds - Infectious Disease History Infectious Disease History: Reports: Chicken Pox, Influenza, Measles, MRSA - Past Surgical History Head Surgeries/Procedures: Reports: None GI Surgical History: Reports: Appendectomy Neurological Surgical History: Reports: None Musculoskeletal Surgical History: Reports: Other (See Below) Other Musculoskeletal Surgeries/Procedures:: fx--patella with surgery. Oncologic Surgical History: Reports: None - History Comment History Comment: Pt uses albuteral inhaler when she gets a sinus infection. 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) ED ROS GENERAL - Review of Systems Review Of Systems: See Below Constitutional: Reports: Fever (gone), Chills HEENT: Reports: Rhinitis, Sinus Problem Respiratory: Reports: Shortness of Breath, Wheezing, Cough, Sputum (scant) Cardiovascular: Reports: Chest Pain (with coughing) GI/Abdominal: Denies: Abdominal Pain, Vomiting Musculoskeletal: Reports: Other (achiness) Skin: Reports: No Symptoms Neurological: Reports: Dizziness, Headache, Weakness (generalized) ED EXAM, GENERAL - Physical Exam Exam: See Below General Appearance: Alert, Mild Distress Eye Exam: Bilateral Eye: PERRL Throat/Mouth: Normal Inspection, Normal Oropharynx Head: Atraumatic Neck: Supple Respiratory/Chest: Rhonchi (bilat), Wheezing Cardiovascular: Regular Rate, Rhythm GI/Abdominal: Non-Tender Back Exam: No: CVA Tenderness (L), CVA Tenderness (R) Extremities: Normal Inspection. No: Pedal Edema, Leg Pain Neurological: Alert, Oriented, No Motor/Sensory Deficits Skin Exam: Warm, Dry, Normal Color Course - Vital Signs Last Recorded V/S: Last Vital Signs Temp 98.3 F 12/11/19 16:50 Pulse 85 12/11/19 17:11 Resp 18 12/11/19 16:50 BP 136/80 12/11/19 17:11 Pulse Ox 98 12/11/19 17:11 - Orders/Labs/Meds Orders: Active Orders 24 hr Category Date Time Status Oxygen Therapy [RC] ASDIRECTED Care 12/11/19 14:46 Active CXR [Chest 2V] [CR] Stat Exams 12/11/19 13:57 Taken CULTURE BLOOD [BC] Stat Lab 12/11/19 15:20 Received CULTURE BLOOD [BC] Stat Lab 12/11/19 15:27 Received Medication Orders Acetaminophen (Tylenol) 650 mg PO Q4H PRN PRN Reason: Pain (Mild 1-3)/fever Acetylcysteine (Mucomyst 20%) 800 mg NEB BIDRT [facility] Benzonatate (Tessalon Perles) 100 mg PO TID [facility] Guaifenesin (Mucinex) 600 mg PO TID [facility] Ceftriaxone Sodium 2 gm/ (Sodium Chloride) 100 mls @ 200 mls/hr IV Q24H [facility] Azithromycin 500 mg/ Sodium (Chloride) 250 mls @ 250 mls/hr IV Q24H [facility] Ipratropium [place] (Atrovent) 0.5 mg NEB Q4HRRT [facility] Last Admin: 12/11/19 17:04 Dose: 0.5 mg Ondansetron HCl (Zofran Odt) 4 mg PO Q6H PRN PRN Reason: nausea, able to take PO Ondansetron HCl (Zofran) 4 mg IV Q6H PRN PRN Reason: Nausea/Vomiting Warfarin Sodium (Pharmacy To Dose - Warfarin) 1 dose .XX ASDIRECTED [facility] Labs: Laboratory Tests 12/11/19 12/11/19 12/11/19 Range/Units 11:30 11:30 11:30 WBC 3.01 L (3.98-10.04) K/mm3 RBC 4.78 (3.98-5.22) M/mm3 Hgb 11.9 (11.2-15.7) gm/dl Hct 37.2 (34.1-44.9) % MCV 77.8 L D (79.4-94.8) fl MCH 24.9 L (25.6-32.2) pg MCHC 32.0 L (32.2-35.5) g/dl RDW Std Deviation 51.2 H (36.4-46.3) fL Plt Count 229 (182-369) K/mm3 MPV 10.3 (9.4-12.3) fl Neutrophils % (Manual) 66 H (40-60) % Band Neutrophils % 0 (0-10) % Lymphocytes % (Manual) 24 (20-40) % Atypical Lymphs % 0 % Monocytes % (Manual) 6 (2-10) % Eosinophils % (Manual) 4 (0.7-5.8) % Basophils % (Manual) 0 L (0.1-1.2) Platelet Estimate Adequate Poikilocytosis 1+ slight Anisocytosis 1+ slight RBC Morph Comment Not Reportable ESR (0-20) mm/hr PT (9.7-12.0) SECONDS INR Puncture Site ABG pH (7.35-7.45) ABG pCO2 (35.0-45.0) mmHg ABG pO2 (80.0-100.0) mmHg ABG HCO3 (22.0-26.0) meq/L ABG O2 Saturation (96.0-97.0) % ABG Base Excess (-2-2.0) Devin Test A-a Gradient mmHg O2 Delivery Device FiO2 (21.00-100.00) % Sodium 142 (136-145) mEq/L Potassium 3.2 L (3.5-5.1) mEq/L Chloride 105 (98-107) mEq/L Carbon Dioxide 27 (21-32) mEq/L Anion Gap 13.2 (5-15) BUN 23 H (7-18) mg/dL Creatinine 1.1 H (0.55-1.02) mg/dL Est Cr Clr Drug Dosing 49.00 mL/min Estimated GFR (MDRD) 50 (>60) mL/min BUN/Creatinine Ratio 20.9 H (14-18) Glucose 110 (80-115) mg/dL Lactic Acid (0.4-2.0) mmol/L Calcium 8.5 (8.5-10.1) mg/dL Total Bilirubin 0.6 (0.2-1.0) mg/dL AST 82 H (15-37) U/L ALT 40 (14-59) U/L Alkaline Phosphatase 90 (46-116) U/L Lactate Dehydrogenase (81-234) U/L C-Reactive Protein 9.8 H* (<1.0) mg/dL Total Protein 6.3 L (6.4-8.2) g/dl Albumin 3.0 L (3.4-5.0) g/dl Globulin 3.3 gm/dL Albumin/Globulin Ratio 0.9 L (1-2) Mycoplasma pneumon IgM (NEGATIVE) 12/11/19 12/11/19 12/11/19 Range/Units 11:30 11:30 11:30 WBC (3.98-10.04) K/mm3 RBC (3.98-5.22) M/mm3 Hgb (11.2-15.7) gm/dl Hct (34.1-44.9) % MCV (79.4-94.8) fl MCH (25.6-32.2) pg MCHC (32.2-35.5) g/dl RDW Std Deviation (36.4-46.3) fL Plt Count (182-369) K/mm3 MPV (9.4-12.3) fl Neutrophils % (Manual) (40-60) % Band Neutrophils % (0-10) % Lymphocytes % (Manual) (20-40) % Atypical Lymphs % % Monocytes % (Manual) (2-10) % Eosinophils % (Manual) (0.7-5.8) % Basophils % (Manual) (0.1-1.2) Platelet Estimate Poikilocytosis Anisocytosis RBC Morph Comment ESR 35 H (0-20) mm/hr PT 31.0 H D (9.7-12.0) SECONDS INR 3.03 Puncture Site ABG pH (7.35-7.45) ABG pCO2 (35.0-45.0) mmHg ABG pO2 (80.0-100.0) mmHg ABG HCO3 (22.0-26.0) meq/L ABG O2 Saturation (96.0-97.0) % ABG Base Excess (-2-2.0) Devin Test A-a Gradient mmHg O2 Delivery Device FiO2 (21.00-100.00) % Sodium (136-145) mEq/L Potassium (3.5-5.1) mEq/L Chloride (98-107) mEq/L Carbon Dioxide (21-32) mEq/L Anion Gap (5-15) BUN (7-18) mg/dL Creatinine (0.55-1.02) mg/dL Est Cr Clr Drug Dosing mL/min Estimated GFR (MDRD) (>60) mL/min BUN/Creatinine Ratio (14-18) Glucose (80-115) mg/dL Lactic Acid (0.4-2.0) mmol/L Calcium (8.5-10.1) mg/dL Total Bilirubin (0.2-1.0) mg/dL AST (15-37) U/L ALT (14-59) U/L Alkaline Phosphatase (46-116) U/L Lactate Dehydrogenase 633 H (81-234) U/L C-Reactive Protein (<1.0) mg/dL Total Protein (6.4-8.2) g/dl Albumin (3.4-5.0) g/dl Globulin gm/dL Albumin/Globulin Ratio (1-2) Mycoplasma pneumon IgM Negative (NEGATIVE) 12/11/19 12/11/19 Range/Units 13:59 15:13 WBC (3.98-10.04) K/mm3 RBC (3.98-5.22) M/mm3 Hgb (11.2-15.7) gm/dl Hct (34.1-44.9) % MCV (79.4-94.8) fl MCH (25.6-32.2) pg MCHC (32.2-35.5) g/dl RDW Std Deviation (36.4-46.3) fL Plt Count (182-369) K/mm3 MPV (9.4-12.3) fl Neutrophils % (Manual) (40-60) % Band Neutrophils % (0-10) % Lymphocytes % (Manual) (20-40) % Atypical Lymphs % % Monocytes % (Manual) (2-10) % Eosinophils % (Manual) (0.7-5.8) % Basophils % (Manual) (0.1-1.2) Platelet Estimate Poikilocytosis Anisocytosis RBC Morph Comment ESR (0-20) mm/hr PT (9.7-12.0) SECONDS INR Puncture Site Lt radial ABG pH 7.48 H (7.35-7.45) ABG pCO2 32.9 L (35.0-45.0) mmHg ABG pO2 54.0 L (80.0-100.0) mmHg ABG HCO3 23.9 (22.0-26.0) meq/L ABG O2 Saturation 84.9 L (96.0-97.0) % ABG Base Excess 1.2 (-2-2.0) Devin Test Positive A-a Gradient 55 mmHg O2 Delivery Device Room air FiO2 21.00 (21.00-100.00) % Sodium (136-145) mEq/L Potassium (3.5-5.1) mEq/L Chloride (98-107) mEq/L Carbon Dioxide (21-32) mEq/L Anion Gap (5-15) BUN (7-18) mg/dL Creatinine (0.55-1.02) mg/dL Est Cr Clr Drug Dosing mL/min Estimated GFR (MDRD) (>60) mL/min BUN/Creatinine Ratio (14-18) Glucose (80-115) mg/dL Lactic Acid 0.8 (0.4-2.0) mmol/L Calcium (8.5-10.1) mg/dL Total Bilirubin (0.2-1.0) mg/dL AST (15-37) U/L ALT (14-59) U/L Alkaline Phosphatase (46-116) U/L Lactate Dehydrogenase (81-234) U/L C-Reactive Protein (<1.0) mg/dL Total Protein (6.4-8.2) g/dl Albumin (3.4-5.0) g/dl Globulin gm/dL Albumin/Globulin Ratio (1-2) Mycoplasma pneumon IgM (NEGATIVE) Meds: Medications Generic Name Dose Route Start Last Admin Trade Name Freq PRN Reason Stop Dose Admin Acetaminophen 650 mg 12/11/19 15:59 Tylenol PO Q4H PRN Pain (Mild 1-3)/fever Acetylcysteine 800 mg 12/11/19 21:00 Mucomyst 20% NEB BIDRT [facility] Benzonatate 100 mg 12/11/19 21:00 Tessalon Perles PO TID [facility] Guaifenesin 600 mg 12/11/19 21:00 Mucinex PO TID [facility] Ceftriaxone Sodium 2 gm/ 100 mls @ 200 mls/hr 12/12/19 15:00 Sodium Chloride IV Q24H [facility] Azithromycin 500 mg/ Sodium 250 mls @ 250 mls/hr 12/11/19 18:00 Chloride IV Q24H [facility] Ipratropium [place] 0.5 mg 12/11/19 18:00 12/11/19 17:04 Atrovent NEB 0.5 mg Q4HRRT [facility] Administration Ondansetron HCl 4 mg 12/11/19 15:59 Zofran Odt PO Q6H PRN nausea, able to take PO Ondansetron HCl 4 mg 12/11/19 15:59 Zofran IV Q6H PRN Nausea/Vomiting Warfarin Sodium 1 dose 12/11/19 17:45 Pharmacy To Dose - Warfarin .XX ASDIRECTED [facility] Discontinued Medications Generic Name Dose Route Start Last Admin Trade Name Freq PRN Reason Stop Dose Admin Albuterol/Ipratropium 3 ml 12/11/19 14:45 12/11/19 15:06 Duoneb 3.0-0.5 Mg/3 Ml NEB 12/11/19 14:46 3 ml ONETIME ONE Administration Albuterol/Ipratropium Confirm 12/11/19 15:00 12/11/19 15:07 Duoneb 3.0-0.5 Mg/3 Ml Administered 12/11/19 15:01 Not Given Dose 3 ml .ROUTE .STK-MED ONE Ceftriaxone Sodium 2 gm/ 100 mls @ 200 mls/hr 12/11/19 15:06 12/11/19 15:30 Sodium Chloride IV 12/11/19 15:35 200 mls/hr Q24H ONE Administration Azithromycin 500 mg/ Sodium 250 mls @ 250 mls/hr 12/11/19 17:30 Chloride IV Q24H [facility] Methylprednisolone Sodium Succinate 125 mg 12/11/19 14:46 12/11/19 15:04 Solu-Medrol IVPUSH 12/11/19 14:47 125 mg ONETIME ONE Administration - Re-Assessments/Exams Free Text/Narrative Re-Assessment/Exam: 12/11/19 18:25 CXR showed bilat infiltrates compatable with pneumonia. blood cultures times 2 obtained. WBC mildly low. ABG's room air confirm hypoxia, sats are 94 at 3 L NC. Lactate neg. Rocephin 2 grams IV ordered. Patient was admitted for further care. Departure - Departure Time of Disposition: 15:05 Disposition: Admitted As Inpatient 67 Condition: Serious Clinical Impression: Hypoxia Pneumonia Qualifiers: Pneumonia type: due to unspecified organism Laterality: bilateral Lung location : unspecified part of lung Qualified Code(s): J18.9 - Pneumonia, unspecified organism - Discharge Information Sepsis Event Note - Evaluation Sepsis Screening Result: No Definite Risk - Focused Exam Vital Signs: Vital Signs Temp Pulse Resp BP Pulse Ox Pulse Ox 12/11/19 14:46 84 L 12/11/19 12:52 97.8 F 69 20 143/73 H 83 L Date Exam was Performed: 12/11/19 Time Exam was Performed: 18:21 ED Communication - Discussed Case With (1) Discussed Case With (1): Admitting Provider (Dr Diaz, decision to admit at about 1500.) - My Orders Last 24 Hours: My Active Orders 12/11/19 13:57 CXR [Chest 2V] [CR] Stat 12/11/19 14:46 Oxygen Therapy [RC] ASDIRECTED 12/11/19 15:20 CULTURE BLOOD [BC] Stat 12/11/19 15:27 CULTURE BLOOD [BC] Stat - Assessment/Plan Last 24 Hours: My Active Orders 12/11/19 13:57 CXR [Chest 2V] [CR] Stat 12/11/19 14:46 Oxygen Therapy [RC] ASDIRECTED 12/11/19 15:20 CULTURE BLOOD [BC] Stat 12/11/19 15:27 CULTURE BLOOD [BC] Stat
[2019-12-11] MEDS: Ipratropium 0.02% 0.5 MG/2.5 ML Neb Soln NEB SCH ×2 (17:04→21:01)
[2019-12-11] MEDS ORDERED: Azithromycin 500 MG in Sodium Chloride 0.9% 250 ML IV SCH (17:30)
[2019-12-11] MEDS: Azithromycin 500 MG in Sodium Chloride 0.9% 250 ML IV SCH (18:41)
[2019-12-11] MEDS: guaiFENesin 600 MG Tab.ER PO SCH (20:29)
[2019-12-11] MEDS: Metoprolol Tartrate 25 MG Tab PO SCH (20:29)
[2019-12-11] MEDS: Benzonatate 100 MG Cap PO SCH (20:30)
[2019-12-11] MEDS: Acetylcysteine 20% 200 MG/ML 4 ML Nebulizer Soln SDV NEB SCH (20:54)
[2019-12-12] MEDS: Ipratropium 0.02% 0.5 MG/2.5 ML Neb Soln NEB SCH ×6 (01:19→21:03)
[2019-12-12] MEDS: Acetylcysteine 20% 200 MG/ML 4 ML Nebulizer Soln SDV NEB SCH (05:38)
[2019-12-12] MEDS: diphenhydrAMINE 25 MG Cap PO SCH ×2 (07:10→20:18)
--- NOTE | 2019-12-12 07:38 | CR ---
Chest: Two views of the chest were obtained. Comparison: Prior chest x-ray of 12/11/19. Worsening parenchymal density seen within both lungs which now appear to contain nodular alveolar opacities. This is superimposed upon diffuse interstitial change. Heart size is mildly enlarged. Tortuous thoracic aorta is seen. Bony structures appear within normal limits for the patient's age. Impression: 1. Worsening change within both lungs. Findings suspicious for diffuse pneumonia superimposed upon chronic interstitial change and possible superimposed pulmonary vascular congestion. 2. Heart mildly enlarged. Diagnostic code #3 This report was dictated in MDT
[2019-12-12] MEDS ORDERED: Potassium Chloride 20 MEQ Tab.ER PO SCH (09:00)
[2019-12-12] MEDS: Furosemide 20 MG Tab PO SCH (09:16)
[2019-12-12] MEDS: Diltiazem 180 MG Cap.CD PO SCH (09:17)
[2019-12-12] MEDS: Metoprolol Tartrate 25 MG Tab PO SCH ×2 (09:17→20:17)
[2019-12-12] MEDS: Allopurinol 100 MG Tab PO SCH (09:18)
[2019-12-12] MEDS: guaiFENesin 600 MG Tab.ER PO SCH ×3 (09:18→20:18)
[2019-12-12] MEDS: Benzonatate 100 MG Cap PO SCH ×3 (09:19→20:17)
[2019-12-12] MEDS ORDERED: Magnesium Sulfate/D5W 1 GM/100 ML BAG IV ONE (11:30)
[2019-12-12] MEDS: Potassium Chloride 20 MEQ Tab.ER PO SCH ×2 (11:34→20:19)
[2019-12-12] MEDS ORDERED: Albuterol/Ipratropium 3.0-0.5 MG/3 ML Neb Soln NEB PRN (13:05)
--- NOTE | 2019-12-12 13:07 | PCM.PN ---
- General Info Date of Service: 12/12/19 Admission Dx/Problem (Free Text): Admission Diagnosis/Problem Admission Diagnosis/Problem Pneumonia Functional Status: Reports: Pain Controlled, Tolerating Diet, Ambulating, Urinating, Incentive Spirometry. Denies: New Symptoms - Review of Systems General: Reports: Weakness, Fatigue, Malaise. Denies: Fever, Chills HEENT: Reports: Post Nasal Drip, Sinus Congestion. Denies: Sore Throat Pulmonary: Reports: Shortness of Breath, Cough, Sputum, Wheezing. Denies: Pleuritic Chest Pain Cardiovascular: Reports: Dyspnea on Exertion. Denies: Chest Pain, Palpitations Gastrointestinal: Reports: Decreased Appetite. Denies: Abdominal Pain, Constipation, Diarrhea, Vomiting Genitourinary: Reports: No Symptoms. Denies: Pain Musculoskeletal: Reports: No Symptoms Skin: Reports: No Symptoms. Denies: Cyanosis Neurological: Reports: No Symptoms. Denies: Confusion, Difficulty Walking, Gait Disturbance Psychiatric: Reports: No Symptoms - Patient Data Vitals - Most Recent: Last Vital Signs Temp 97.7 F 12/12/19 11:45 Pulse 62 12/12/19 11:45 Resp 18 12/12/19 11:45 BP 125/79 12/12/19 11:45 Pulse Ox 94 L 12/12/19 11:45 Weight - Most Recent: 297 lb 8 oz I&O - Last 24 Hours: Intake & Output 12/11/19 12/12/19 12/12/19 22:59 06:59 14:59 Intake Total 300 1050 600 Output Total 600 Balance 300 450 600 Lab Results Last 24 Hours: Laboratory Results - last 24 hr 12/11/19 12/11/19 12/11/19 Range/Units 11:30 11:30 11:30 WBC 3.01 L (3.98-10.04) K/mm3 RBC 4.78 (3.98-5.22) M/mm3 Hgb 11.9 (11.2-15.7) gm/dl Hct 37.2 (34.1-44.9) % MCV 77.8 L D (79.4-94.8) fl MCH 24.9 L (25.6-32.2) pg MCHC 32.0 L (32.2-35.5) g/dl RDW Std Deviation 51.2 H (36.4-46.3) fL Plt Count 229 (182-369) K/mm3 MPV 10.3 (9.4-12.3) fl Neut % (Auto) (34.0-71.1) % Lymph % (Auto) (19.3-51.7) % Kane % (Auto) (4.7-12.5) % Eos % (Auto) (0.7-5.8) Baso % (Auto) (0.1-1.2) % Neut # (Auto) (1.56-6.13) K/mm3 Lymph # (Auto) (1.18-3.74) K/mm3 Kane # (Auto) (0.24-0.36) K/mm3 Eos # (Auto) (0.04-0.36) K/mm3 Baso # (Auto) (0.01-0.08) K/mm3 Neutrophils % (Manual) 66 H (40-60) % Band Neutrophils % 0 (0-10) % Lymphocytes % (Manual) 24 (20-40) % Atypical Lymphs % 0 % Monocytes % (Manual) 6 (2-10) % Eosinophils % (Manual) 4 (0.7-5.8) % Basophils % (Manual) 0 L (0.1-1.2) Manual Slide Review Platelet Estimate Adequate Poikilocytosis 1+ slight Anisocytosis 1+ slight RBC Morph Comment Not Reportable ESR (0-20) mm/hr PT (9.7-12.0) SECONDS INR Puncture Site ABG pH (7.35-7.45) ABG pCO2 (35.0-45.0) mmHg ABG pO2 (80.0-100.0) mmHg ABG HCO3 (22.0-26.0) meq/L ABG O2 Saturation (96.0-97.0) % ABG Base Excess (-2-2.0) Devin Test A-a Gradient mmHg O2 Delivery Device FiO2 (21.00-100.00) % Sodium 142 (136-145) mEq/L Potassium 3.2 L (3.5-5.1) mEq/L Chloride 105 (98-107) mEq/L Carbon Dioxide 27 (21-32) mEq/L Anion Gap 13.2 (5-15) BUN 23 H (7-18) mg/dL Creatinine 1.1 H (0.55-1.02) mg/dL Est Cr Clr Drug Dosing 49.00 mL/min Estimated GFR (MDRD) 50 (>60) mL/min BUN/Creatinine Ratio 20.9 H (14-18) Glucose 110 (80-115) mg/dL Lactic Acid (0.4-2.0) mmol/L Calcium 8.5 (8.5-10.1) mg/dL Phosphorus (2.6-4.7) mg/dL Magnesium (1.8-2.4) mg/dl Total Bilirubin 0.6 (0.2-1.0) mg/dL AST 82 H (15-37) U/L ALT 40 (14-59) U/L Alkaline Phosphatase 90 (46-116) U/L Lactate Dehydrogenase (81-234) U/L C-Reactive Protein 9.8 H* (<1.0) mg/dL Total Protein 6.3 L (6.4-8.2) g/dl Albumin 3.0 L (3.4-5.0) g/dl Globulin 3.3 gm/dL Albumin/Globulin Ratio 0.9 L (1-2) Mycoplasma pneumon IgM (NEGATIVE) 12/11/19 12/11/19 12/11/19 Range/Units 11:30 11:30 11:30 WBC (3.98-10.04) K/mm3 RBC (3.98-5.22) M/mm3 Hgb (11.2-15.7) gm/dl Hct (34.1-44.9) % MCV (79.4-94.8) fl MCH (25.6-32.2) pg MCHC (32.2-35.5) g/dl RDW Std Deviation (36.4-46.3) fL Plt Count (182-369) K/mm3 MPV (9.4-12.3) fl Neut % (Auto) (34.0-71.1) % Lymph % (Auto) (19.3-51.7) % Kane % (Auto) (4.7-12.5) % Eos % (Auto) (0.7-5.8) Baso % (Auto) (0.1-1.2) % Neut # (Auto) (1.56-6.13) K/mm3 Lymph # (Auto) (1.18-3.74) K/mm3 Kane # (Auto) (0.24-0.36) K/mm3 Eos # (Auto) (0.04-0.36) K/mm3 Baso # (Auto) (0.01-0.08) K/mm3 Neutrophils % (Manual) (40-60) % Band Neutrophils % (0-10) % Lymphocytes % (Manual) (20-40) % Atypical Lymphs % % Monocytes % (Manual) (2-10) % Eosinophils % (Manual) (0.7-5.8) % Basophils % (Manual) (0.1-1.2) Manual Slide Review Platelet Estimate Poikilocytosis Anisocytosis RBC Morph Comment ESR 35 H (0-20) mm/hr PT 31.0 H D (9.7-12.0) SECONDS INR 3.03 Puncture Site ABG pH (7.35-7.45) ABG pCO2 (35.0-45.0) mmHg ABG pO2 (80.0-100.0) mmHg ABG HCO3 (22.0-26.0) meq/L ABG O2 Saturation (96.0-97.0) % ABG Base Excess (-2-2.0) Devin Test A-a Gradient mmHg O2 Delivery Device FiO2 (21.00-100.00) % Sodium (136-145) mEq/L Potassium (3.5-5.1) mEq/L Chloride (98-107) mEq/L Carbon Dioxide (21-32) mEq/L Anion Gap (5-15) BUN (7-18) mg/dL Creatinine (0.55-1.02) mg/dL Est Cr Clr Drug Dosing mL/min Estimated GFR (MDRD) (>60) mL/min BUN/Creatinine Ratio (14-18) Glucose (80-115) mg/dL Lactic Acid (0.4-2.0) mmol/L Calcium (8.5-10.1) mg/dL Phosphorus (2.6-4.7) mg/dL Magnesium (1.8-2.4) mg/dl Total Bilirubin (0.2-1.0) mg/dL AST (15-37) U/L ALT (14-59) U/L Alkaline Phosphatase (46-116) U/L Lactate Dehydrogenase 633 H (81-234) U/L C-Reactive Protein (<1.0) mg/dL Total Protein (6.4-8.2) g/dl Albumin (3.4-5.0) g/dl Globulin gm/dL Albumin/Globulin Ratio (1-2) Mycoplasma pneumon IgM Negative (NEGATIVE) 12/11/19 12/11/19 12/11/19 Range/Units 13:59 15:13 16:28 WBC (3.98-10.04) K/mm3 RBC (3.98-5.22) M/mm3 Hgb (11.2-15.7) gm/dl Hct (34.1-44.9) % MCV (79.4-94.8) fl MCH (25.6-32.2) pg MCHC (32.2-35.5) g/dl RDW Std Deviation (36.4-46.3) fL Plt Count (182-369) K/mm3 MPV (9.4-12.3) fl Neut % (Auto) (34.0-71.1) % Lymph % (Auto) (19.3-51.7) % Kane % (Auto) (4.7-12.5) % Eos % (Auto) (0.7-5.8) Baso % (Auto) (0.1-1.2) % Neut # (Auto) (1.56-6.13) K/mm3 Lymph # (Auto) (1.18-3.74) K/mm3 Kane # (Auto) (0.24-0.36) K/mm3 Eos # (Auto) (0.04-0.36) K/mm3 Baso # (Auto) (0.01-0.08) K/mm3 Neutrophils % (Manual) (40-60) % Band Neutrophils % (0-10) % Lymphocytes % (Manual) (20-40) % Atypical Lymphs % % Monocytes % (Manual) (2-10) % Eosinophils % (Manual) (0.7-5.8) % Basophils % (Manual) (0.1-1.2) Manual Slide Review Platelet Estimate Poikilocytosis Anisocytosis RBC Morph Comment ESR (0-20) mm/hr PT 35.4 H (9.7-12.0) SECONDS INR 3.49 Puncture Site Lt radial ABG pH 7.48 H (7.35-7.45) ABG pCO2 32.9 L (35.0-45.0) mmHg ABG pO2 54.0 L (80.0-100.0) mmHg ABG HCO3 23.9 (22.0-26.0) meq/L ABG O2 Saturation 84.9 L (96.0-97.0) % ABG Base Excess 1.2 (-2-2.0) Devin Test Positive A-a Gradient 55 mmHg O2 Delivery Device Room air FiO2 21.00 (21.00-100.00) % Sodium (136-145) mEq/L Potassium (3.5-5.1) mEq/L Chloride (98-107) mEq/L Carbon Dioxide (21-32) mEq/L Anion Gap (5-15) BUN (7-18) mg/dL Creatinine (0.55-1.02) mg/dL Est Cr Clr Drug Dosing mL/min Estimated GFR (MDRD) (>60) mL/min BUN/Creatinine Ratio (14-18) Glucose (80-115) mg/dL Lactic Acid 0.8 (0.4-2.0) mmol/L Calcium (8.5-10.1) mg/dL Phosphorus (2.6-4.7) mg/dL Magnesium (1.8-2.4) mg/dl Total Bilirubin (0.2-1.0) mg/dL AST (15-37) U/L ALT (14-59) U/L Alkaline Phosphatase (46-116) U/L Lactate Dehydrogenase (81-234) U/L C-Reactive Protein (<1.0) mg/dL Total Protein (6.4-8.2) g/dl Albumin (3.4-5.0) g/dl Globulin gm/dL Albumin/Globulin Ratio (1-2) Mycoplasma pneumon IgM (NEGATIVE) 12/12/19 12/12/19 12/12/19 Range/Units 05:09 05:09 05:09 WBC 1.76 L* (3.98-10.04) K/mm3 RBC 4.65 (3.98-5.22) M/mm3 Hgb 11.6 (11.2-15.7) gm/dl Hct 36.4 (34.1-44.9) % MCV 78.3 L (79.4-94.8) fl MCH 24.9 L (25.6-32.2) pg MCHC 31.9 L (32.2-35.5) g/dl RDW Std Deviation 51.5 H (36.4-46.3) fL Plt Count 219 (182-369) K/mm3 MPV 10.7 (9.4-12.3) fl Neut % (Auto) 61.3 (34.0-71.1) % Lymph % (Auto) 31.8 (19.3-51.7) % Kane % (Auto) 5.7 (4.7-12.5) % Eos % (Auto) 0 L (0.7-5.8) Baso % (Auto) 0.6 (0.1-1.2) % Neut # (Auto) 1.08 L (1.56-6.13) K/mm3 Lymph # (Auto) 0.56 L (1.18-3.74) K/mm3 Kane # (Auto) 0.10 L (0.24-0.36) K/mm3 Eos # (Auto) 0.00 L (0.04-0.36) K/mm3 Baso # (Auto) 0.01 (0.01-0.08) K/mm3 Neutrophils % (Manual) (40-60) % Band Neutrophils % (0-10) % Lymphocytes % (Manual) (20-40) % Atypical Lymphs % % Monocytes % (Manual) (2-10) % Eosinophils % (Manual) (0.7-5.8) % Basophils % (Manual) (0.1-1.2) Manual Slide Review Abnormal smear Platelet Estimate Poikilocytosis Anisocytosis RBC Morph Comment ESR (0-20) mm/hr PT 40.3 H (9.7-12.0) SECONDS INR 4.00 Puncture Site ABG pH (7.35-7.45) ABG pCO2 (35.0-45.0) mmHg ABG pO2 (80.0-100.0) mmHg ABG HCO3 (22.0-26.0) meq/L ABG O2 Saturation (96.0-97.0) % ABG Base Excess (-2-2.0) Devin Test A-a Gradient mmHg O2 Delivery Device FiO2 (21.00-100.00) % Sodium 143 (136-145) mEq/L Potassium 3.4 L (3.5-5.1) mEq/L Chloride 106 (98-107) mEq/L Carbon Dioxide 28 (21-32) mEq/L Anion Gap 12.4 (5-15) BUN 18 (7-18) mg/dL Creatinine 0.9 (0.55-1.02) mg/dL Est Cr Clr Drug Dosing 59.89 mL/min Estimated GFR (MDRD) > 60 (>60) mL/min BUN/Creatinine Ratio 20.0 H (14-18) Glucose 174 H (80-115) mg/dL Lactic Acid (0.4-2.0) mmol/L Calcium 8.3 L (8.5-10.1) mg/dL Phosphorus 3.1 (2.6-4.7) mg/dL Magnesium 1.9 (1.8-2.4) mg/dl Total Bilirubin (0.2-1.0) mg/dL AST (15-37) U/L ALT (14-59) U/L Alkaline Phosphatase (46-116) U/L Lactate Dehydrogenase (81-234) U/L C-Reactive Protein (<1.0) mg/dL Total Protein (6.4-8.2) g/dl Albumin (3.4-5.0) g/dl Globulin gm/dL Albumin/Globulin Ratio (1-2) Mycoplasma pneumon IgM (NEGATIVE) 12/12/19 Range/Units 12:00 WBC (3.98-10.04) K/mm3 RBC (3.98-5.22) M/mm3 Hgb (11.2-15.7) gm/dl Hct (34.1-44.9) % MCV (79.4-94.8) fl MCH (25.6-32.2) pg MCHC (32.2-35.5) g/dl RDW Std Deviation (36.4-46.3) fL Plt Count (182-369) K/mm3 MPV (9.4-12.3) fl Neut % (Auto) (34.0-71.1) % Lymph % (Auto) (19.3-51.7) % Kane % (Auto) (4.7-12.5) % Eos % (Auto) (0.7-5.8) Baso % (Auto) (0.1-1.2) % Neut # (Auto) (1.56-6.13) K/mm3 Lymph # (Auto) (1.18-3.74) K/mm3 Kane # (Auto) (0.24-0.36) K/mm3 Eos # (Auto) (0.04-0.36) K/mm3 Baso # (Auto) (0.01-0.08) K/mm3 Neutrophils % (Manual) (40-60) % Band Neutrophils % (0-10) % Lymphocytes % (Manual) (20-40) % Atypical Lymphs % % Monocytes % (Manual) (2-10) % Eosinophils % (Manual) (0.7-5.8) % Basophils % (Manual) (0.1-1.2) Manual Slide Review Platelet Estimate Poikilocytosis Anisocytosis RBC Morph Comment ESR (0-20) mm/hr PT (9.7-12.0) SECONDS INR Puncture Site ABG pH (7.35-7.45) ABG pCO2 (35.0-45.0) mmHg ABG pO2 (80.0-100.0) mmHg ABG HCO3 (22.0-26.0) meq/L ABG O2 Saturation (96.0-97.0) % ABG Base Excess (-2-2.0) Devin Test A-a Gradient mmHg O2 Delivery Device FiO2 (21.00-100.00) % Sodium (136-145) mEq/L Potassium (3.5-5.1) mEq/L Chloride (98-107) mEq/L Carbon Dioxide (21-32) mEq/L Anion Gap (5-15) BUN (7-18) mg/dL Creatinine (0.55-1.02) mg/dL Est Cr Clr Drug Dosing mL/min Estimated GFR (MDRD) (>60) mL/min BUN/Creatinine Ratio (14-18) Glucose (80-115) mg/dL Lactic Acid 3.5 H* (0.4-2.0) mmol/L Calcium (8.5-10.1) mg/dL Phosphorus (2.6-4.7) mg/dL Magnesium (1.8-2.4) mg/dl Total Bilirubin (0.2-1.0) mg/dL AST (15-37) U/L ALT (14-59) U/L Alkaline Phosphatase (46-116) U/L Lactate Dehydrogenase (81-234) U/L C-Reactive Protein (<1.0) mg/dL Total Protein (6.4-8.2) g/dl Albumin (3.4-5.0) g/dl Globulin gm/dL Albumin/Globulin Ratio (1-2) Mycoplasma pneumon IgM (NEGATIVE) Med Orders - Current: Current Medications Acetaminophen (Tylenol) 650 mg PO Q4H PRN PRN Reason: Pain (Mild 1-3)/fever Allopurinol (Zyloprim) 200 mg PO DAILY [facility] Last Admin: 12/12/19 09:18 Dose: 200 mg Benzonatate (Tessalon Perles) 100 mg PO TID [facility] Last Admin: 12/12/19 09:19 Dose: 100 mg Budesonide (Pulmicort) 0.5 mg NEB BIDRT [facility] Diltiazem HCl (Cardizem Cd) 180 mg PO DAILY [facility] Last Admin: 12/12/19 09:17 Dose: 180 mg Diphenhydramine HCl (Benadryl) 25 mg PO BEDTIME [facility] Last Admin: 12/12/19 07:10 Dose: Not Given Furosemide (Lasix) 60 mg PO DAILY [facility] Last Admin: 12/12/19 09:16 Dose: 60 mg Guaifenesin (Mucinex) 600 mg PO TID [facility] Last Admin: 12/12/19 09:18 Dose: 600 mg Ceftriaxone Sodium 2 gm/ (Sodium Chloride) 100 mls @ 200 mls/hr IV Q24H [facility] Azithromycin 500 mg/ Sodium (Chloride) 250 mls @ 250 mls/hr IV Q24H [facility] Last Admin: 12/11/19 18:41 Dose: 250 mls/hr Lactated Ringer's (Ringers, Lactated) 1,000 mls @ 150 mls/hr IV ASDIRECTED [facility] Ipratropium [place] (Atrovent) 0.5 mg NEB Q4HRRT [facility] Last Admin: 12/12/19 09:45 Dose: 0.5 mg Metoprolol Tartrate (Lopressor) 25 mg PO BID [facility] Last Admin: 12/12/19 09:17 Dose: 25 mg Ondansetron HCl (Zofran Odt) 4 mg PO Q6H PRN PRN Reason: nausea, able to take PO Ondansetron HCl (Zofran) 4 mg IV Q6H PRN PRN Reason: Nausea/Vomiting Potassium Chloride (Klor-Con M20) 20 meq PO DAILY [facility] Last Admin: 12/12/19 09:19 Dose: 20 meq Potassium Chloride (Klor-Con M20) 40 meq PO BID [facility] Stop: 12/12/19 21:01 Last Admin: 12/12/19 11:34 Dose: 40 meq Warfarin Sodium (Pharmacy To Dose - Warfarin) 1 dose .XX ASDIRECTED PRN PRN Reason: RX TO DOSE WARFARIN Discontinued Medications Acetylcysteine (Mucomyst 20%) 800 mg NEB BIDRT [facility] Last Admin: 12/12/19 05:38 Dose: 800 mg Albuterol/Ipratropium (Duoneb 3.0-0.5 Mg/3 Ml) 3 ml NEB ONETIME ONE Stop: 12/11/19 14:46 Last Admin: 12/11/19 15:06 Dose: 3 ml Albuterol/Ipratropium (Duoneb 3.0-0.5 Mg/3 Ml) Confirm Administered Dose 3 ml .ROUTE .STK-MED ONE Stop: 12/11/19 15:01 Last Admin: 12/11/19 15:07 Dose: Not Given Albuterol/Ipratropium (Duoneb 3.0-0.5 Mg/3 Ml) 3 ml NEB Q6HRRT PRN PRN Reason: wheezing/SOB/cough Ceftriaxone Sodium 2 gm/ (Sodium Chloride) 100 mls @ 200 mls/hr IV Q24H ONE Stop: 12/11/19 15:35 Last Admin: 12/11/19 15:30 Dose: 200 mls/hr Azithromycin 500 mg/ Sodium (Chloride) 250 mls @ 250 mls/hr IV Q24H [facility] Last Admin: 12/11/19 18:44 Dose: Not Given Magnesium Sulfate/Dextrose (Magnesium Sulfate In D5w 100 Premix) 1 gm in 100 mls @ 100 mls/hr IV ONETIME ONE Stop: 12/12/19 12:29 Last Admin: 12/12/19 11:35 Dose: 100 mls/hr Methylprednisolone Sodium Succinate (Solu-Medrol) 125 mg IVPUSH ONETIME ONE Stop: 12/11/19 14:47 Last Admin: 12/11/19 15:04 Dose: 125 mg - Exam Quality Assessment: Supplemental Oxygen (1L), DVT Prophylaxis General: Alert, Oriented, Cooperative, No Acute Distress HEENT: Pupils Equal, Pupils Reactive, Mucous Membr. Moist/[place] Neck: Supple, Trachea Midline Lungs: Decreased Breath Sounds, Crackles Cardiovascular: Regular Rate, Regular Rhythm GI/Abdominal Exam: Normal Bowel Sounds, Soft, Non-Tender, No Distention (Female) Exam: Deferred Back Exam: Normal Inspection, Full Range of Motion Extremities: Normal Inspection, Normal Range of Motion, Non-Tender, No Pedal Edema, Normal Capillary Refill Skin: Warm, Dry, Intact Neurological: No New Focal Deficit Psy/Mental Status: Alert, Normal Affect, Normal Mood Sepsis Event Note - Evaluation Sepsis Screening Result: No Definite Risk Current Stage of Sepsis: Sepsis Possible Source of Sepsis: Pulmonary - Focused Exam Sepsis Event Note Statement: Focused Sepsis Exam Completed Vital Signs: Vital Signs Temp Pulse Resp BP Pulse Ox Pulse Ox 12/12/19 11:45 97.7 F 62 18 125/79 94 L 12/12/19 09:49 92 L 12/12/19 09:17 88 139/68 12/12/19 09:14 97.9 F 88 20 139/68 90 L 12/12/19 05:39 97 12/12/19 05:04 18 12/12/19 05:03 97.5 F 76 132/72 91 L 12/12/19 04:00 97 12/12/19 01:21 91 L Respiratory Effort Without Exertion: Other (see below) (Normal ) Heart Sounds: Other (see below) (Regular rate/rhythm) Capillary Refill, Detail: Less than/Equal to (</=) 2 Seconds Pulse Description: 2+ Normal Peripheral Pulse Location: Radial Skin Exam (Focused Sepsis): Normal Turgor Date Exam was Performed: 12/18/19 Time Exam was Performed: 09:24 - Problem List & Annotations (1) Bilateral pneumonia SNOMED Code(s): 556201885 Code(s): J18.9 - PNEUMONIA, UNSPECIFIED ORGANISM Status: Acute (2) Hypoxia SNOMED Code(s): 312326815 Code(s): R09.02 - HYPOXEMIA Status: Acute (3) Pneumonia SNOMED Code(s): 529675407 Code(s): J18.9 - PNEUMONIA, UNSPECIFIED ORGANISM Status: Acute Qualifiers: Pneumonia type: due to unspecified organism Laterality: bilateral Lung location: unspecified part of lung Qualified Code(s): J18.9 - Pneumonia, unspecified organism - Problem List Review Problem List Initiated/Reviewed/Updated: Yes - My Orders Last 24 Hours: My Active Orders 12/12/19 13:02 CULTURE BLOOD [BC] Stat CULTURE BLOOD [BC] Stat Blood Culture x2 Reflex Set [OM.PC] Stat 12/12/19 13:03 PROCALCITONIN [REF] Stat 12/12/19 13:04 Isolation [COMM] Routine 12/12/19 13:05 RT Aerosol Therapy [RC] ASDIRECTED 12/12/19 13:15 Lactated Ringers [Ringers, Lactated] 1,000 ml IV ASDIRECTED - Plan Plan:: DOA - Already diagnosed with influenza A form grandson - Worsening shortness of breath + orthopnea and PND - O2 sat on admission 83% on RA--> placed on NC - CXR with signs of vascular congestion, cant rule out PNA - Crackles and wheezing on physical exam - GFR 49, unknown baseline - INR 3.03 Day 1 - Still requiring 1.5-2.5L for O2sat > 90% - WBC down from 5010 to 1760 - K improved from 3.2 to 3.4 - GFR improved - Procalcitonin ordered - Positive Influenza A on panels - Sepsis alert called with LA 3.5 - Started IVF at 150 - Started on Rocephin and Azithromycin - Sepsis protocol - Repeat BCs ordered, Repeat CBC, CMP, CRP, Procal - Replaced K and Magnesium Bilateral pneumonia 2/2 Influenza A Acute hypoxemic respiratory failure Heart failure exacerbation Neutropenia - Rocephin and Azithromycin, discontinue - Repeat CXR - Budesonide and DuoNeb scheduled - Tessalon Perles and Guaifenesin scheduled Atrial fibrillation, on warfarin Supratherapeutic INR - Hold warfarin - Diltiazem 180 - Metoprolol 25 BID Chronic kidney disease (CKD), stage III (moderate) - Renally dosed medications - Monitor urine output - Avoid nephrotoxic agents Hypoalbuminemia - Prealbumin level - Dietary consult PROPHYLAXIS DVT- compression stockings GI-not indicated CODE STATUS: FULL CODE DISPOSITION: Patient will remain admitted for monitorization of respiratory status as well as scheduled breathing treatments.
[2019-12-12] MEDS: Lactated Ringers 1,000 ML IV SCH ×2 (14:30→18:40)
[2019-12-12] MEDS ORDERED: cefTRIAXone 2 GM in Sodium Chloride 0.9% 100 ML IV SCH (15:00)
[2019-12-12] MEDS ORDERED: Sodium Chloride 0.9% 1,000 ML IV ONE (16:12)
[2019-12-12] MEDS ORDERED: LACTATED RINGERS IV ONE (16:45)
[2019-12-12] MEDS ORDERED: Warfarin Sliding Scale PO SCH (18:00)
[2019-12-12] MEDS: Azithromycin 500 MG in Sodium Chloride 0.9% 250 ML IV SCH (18:40)
[2019-12-12] MEDS ORDERED: Furosemide 40 MG/4 ML VIAL IVPUSH ONE (19:59)
[2019-12-12] MEDS: Budesonide 0.5 MG/2 ML Neb Susp NEB SCH (21:03)
[2019-12-13] MEDS: Ipratropium 0.02% 0.5 MG/2.5 ML Neb Soln NEB SCH ×6 (01:48→22:30)
[2019-12-13] MEDS: Budesonide 0.5 MG/2 ML Neb Susp NEB SCH ×2 (06:03→22:30)
[2019-12-13] MEDS: Benzonatate 100 MG Cap PO SCH ×3 (09:32→20:18)
[2019-12-13] MEDS: Diltiazem 180 MG Cap.CD PO SCH (09:32)
[2019-12-13] MEDS: Metoprolol Tartrate 25 MG Tab PO SCH ×2 (09:32→20:18)
[2019-12-13] MEDS: Furosemide 20 MG Tab PO SCH (09:33)
[2019-12-13] MEDS: guaiFENesin 600 MG Tab.ER PO SCH ×3 (09:34→20:18)
[2019-12-13] MEDS: Potassium Chloride 20 MEQ Tab.ER PO SCH (09:34)
[2019-12-13] MEDS: Allopurinol 100 MG Tab PO SCH (09:35)
[2019-12-13] MEDS ORDERED: LORazepam 1 MG Tab PO ONE (09:49)
--- NOTE | 2019-12-13 14:00 | CR ---
Chest: 2 views of the chest were obtained. Comparison: Prior chest x-ray of 12/12/19. Diffuse nodular parenchymal change is seen within both lungs. Findings remain stable from previous exam. Heart size is mildly enlarged. Tortuous thoracic aorta is seen. Slight degenerative change is scattered within the spine. Impression: 1. Nodular parenchymal change within both lungs. No appreciable change from previous chest x-ray. 2. No pleural effusions are seen. 3. Stable cardiomegaly. Diagnostic code #3 This report was dictated in MDT
--- NOTE | 2019-12-13 14:00 | CR ---
Chest: Portable view of the chest was obtained. Comparison: Previous chest x-ray of 12/11/19. Slight increasing densities throughout both sides of the chest from prior exam. Findings presumably represent mild worsening of pulmonary vascular congestion/pulmonary edema from CHF. Heart remains enlarged. Tortuous thoracic aorta is seen. Bony structures are grossly intact. Impression: 1. Slight increasing parenchymal densities within both sides of the chest from previous exam most likely representing pulmonary vascular congestion and worsening pulmonary edema. Difficult to exclude superimposed pneumonia if patient has correlating symptoms. Diagnostic code #3 This report was dictated in MDT I agree with preliminary report from [facility], finalized on 12/12/19, 9:01 PM Central Time
[2019-12-13] MEDS ORDERED: Warfarin Sliding Scale PO SCH (18:00)
[2019-12-13] MEDS ORDERED: LORazepam 1 MG Tab PO PRN (19:45)
[2019-12-13] MEDS: diphenhydrAMINE 25 MG Cap PO SCH (20:17)
[2019-12-13] MEDS: Furosemide 40 MG Tab PO SCH (20:18)
[2019-12-14] MEDS: Ipratropium 0.02% 0.5 MG/2.5 ML Neb Soln NEB SCH ×6 (02:12→21:34)
[2019-12-14] MEDS: Furosemide 40 MG Tab PO SCH ×2 (06:17→15:03)
[2019-12-14] MEDS: Budesonide 0.5 MG/2 ML Neb Susp NEB SCH ×2 (06:56→21:34)
[2019-12-14] MEDS: Allopurinol 100 MG Tab PO SCH (09:20)
[2019-12-14] MEDS: Benzonatate 100 MG Cap PO SCH ×3 (09:22→22:07)
[2019-12-14] MEDS: Diltiazem 180 MG Cap.CD PO SCH (09:22)
[2019-12-14] MEDS: guaiFENesin 600 MG Tab.ER PO SCH ×3 (09:23→21:59)
[2019-12-14] MEDS: Potassium Chloride 20 MEQ Tab.ER PO SCH ×3 (09:23→22:07)
[2019-12-14] MEDS: Metoprolol Tartrate 25 MG Tab PO SCH ×2 (09:23→21:59)
--- NOTE | 2019-12-14 11:10 | CR ---
Chest: 2 views of the chest were obtained. Comparison: Prior chest x-ray of 12/13/19. Questionable minimal improvement from previous study. No worsening is seen within the bilateral parenchymal densities. Heart is mildly enlarged. No pleural effusions are seen. Bony structures are unchanged. Impression: 1. Diffuse parenchymal change is equivocally improved from previous exam. Diagnostic code #3 This report was dictated in MDT
[2019-12-14] MEDS ORDERED: Magnesium Sulfate/Water 4 GM in Premix Bag 1 BAG IV ONE ×2 (11:45→12:15)
--- NOTE | 2019-12-14 14:54 | PCM.PN ---
- General Info Date of Service: 12/14/19 Subjective Update: Feeling OK Slept OK Tolerating diet - Patient Data Vitals - Most Recent: Last Vital Signs Temp 97.8 F 12/14/19 04:00 Pulse 100 12/14/19 09:23 Resp 24 H 12/14/19 04:00 BP 115/55 L 12/14/19 09:23 Pulse Ox 92 L 12/14/19 10:36 Weight - Most Recent: 131.542 kg - Exam Physical Findings Comments:: Quality Assessment: Supplemental Oxygen, Other (confounded by body habitus) General: Alert, Oriented, Cooperative, Mild Distress HEENT: Conjunctiva Clear, EACs Clear, EOMI, Hearing Intact, Mucosa Moist & [place] , Nares Patent, Normal Nasal Septum Neck: Supple, Trachea Midline, +2 Carotid Pulse wo Bruit, Full Range of Motion. No: Lymphadenopathy Lungs: Decreased Breath Sounds, Crackles. No: Rales, Rhonchi, Rub, Stridor, Wheezing Cardiovascular: Regular Rate, Regular Rhythm. No: Systolic Murmur, Diastolic Murmur, Rubs, Gallop/S3, Gallop/S4 GI/Abdominal Exam: Soft, Distended. No: Guarding, Rigid, Rebound, Tender Extremities: Normal Inspection, Non-Tender, Pedal Edema, Slow Capillary Refill Skin: Warm, Dry Neuro Extensive - Mental Status: Alert, Oriented x3, Normal Mood/Affect, Normal Cognition, Memory Intact Psychiatric: Alert, Anxious Sepsis Event Note - Evaluation Sepsis Screening Result: No Definite Risk - Problem List & Annotations (1) Bilateral pneumonia SNOMED Code(s): 561603768 Code(s): J18.9 - PNEUMONIA, UNSPECIFIED ORGANISM Status: Acute (2) Influenza A SNOMED Code(s): 218606677 Code(s): J10.1 - FLU DUE TO OTH IDENT INFLUENZA VIRUS W OTH RESP MANIFEST Status: Acute (3) Nausea and vomiting SNOMED Code(s): 72599783 Code(s): R11.2 - NAUSEA WITH VOMITING, UNSPECIFIED Status: Acute Qualifiers: Vomiting type: unspecified Vomiting Intractability: non-intractable Qualified Code(s): R11.2 - Nausea with vomiting, unspecified (4) Acute hypoxemic respiratory failure SNOMED Code(s): 018237421 Code(s): J96.01 - ACUTE RESPIRATORY FAILURE WITH HYPOXIA Status: Acute (5) Atrial fibrillation SNOMED Code(s): 02505857 Code(s): I48.91 - UNSPECIFIED ATRIAL FIBRILLATION Status: Acute (6) Chronic kidney disease (CKD), stage III (moderate) SNOMED Code(s): 399457433 Code(s): N18.3 - CHRONIC KIDNEY DISEASE, STAGE 3 (MODERATE) Status: Acute (7) Hypoalbuminemia SNOMED Code(s): 184627678 Code(s): E88.09 - OTH DISORDERS OF PLASMA-PROTEIN METABOLISM, NEC Status: Acute (8) Hypokalemia SNOMED Code(s): 91640321 Code(s): E87.6 - HYPOKALEMIA Status: Acute (9) Hypomagnesemia SNOMED Code(s): 314078578 Code(s): E83.42 - HYPOMAGNESEMIA Status: Acute (10) Hypophosphatemia SNOMED Code(s): 2896779 Code(s): E83.39 - OTHER DISORDERS OF PHOSPHORUS METABOLISM Status: Acute (11) Pulmonary edema SNOMED Code(s): 13293864 Code(s): J81.1 - CHRONIC PULMONARY EDEMA Status: Acute (12) Supratherapeutic INR SNOMED Code(s): 000053564 Code(s): R79.1 - ABNORMAL COAGULATION PROFILE Status: Acute (13) Volume overload SNOMED Code(s): 77987675 Code(s): E87.70 - FLUID OVERLOAD, UNSPECIFIED Status: Acute - Problem List Review Problem List Initiated/Reviewed/Updated: Yes - Plan Plan:: Quality Assessment: Supplemental Oxygen, Other (confounded by body habitus) General: Alert, Oriented, Cooperative, Mild Distress HEENT: Conjunctiva Clear, EACs Clear, EOMI, Hearing Intact, Mucosa Moist & [place] , Nares Patent, Normal Nasal Septum Neck: Supple, Trachea Midline, +2 Carotid Pulse wo Bruit, Full Range of Motion. No: Lymphadenopathy Lungs: Decreased Breath Sounds, Crackles. No: Rales, Rhonchi, Rub, Stridor, Wheezing Cardiovascular: Regular Rate, Regular Rhythm. No: Systolic Murmur, Diastolic Murmur, Rubs, Gallop/S3, Gallop/S4 GI/Abdominal Exam: Soft, Distended. No: Guarding, Rigid, Rebound, Tender Extremities: Normal Inspection, Non-Tender, Pedal Edema, Slow Capillary Refill Skin: Warm, Dry Neuro Extensive - Mental Status: Alert, Oriented x3, Normal Mood/Affect, Normal Cognition, Memory Intact Psychiatric: Alert, Anxious Sepsis Event Note - Evaluation Sepsis Screening Result: No Definite Risk - Problem List & Annotations (1) Bilateral pneumonia SNOMED Code(s): 548779807 Code(s): J18.9 - PNEUMONIA, UNSPECIFIED ORGANISM Status: Acute (2) Influenza A SNOMED Code(s): 695867464 Code(s): J10.1 - FLU DUE TO OTH IDENT INFLUENZA VIRUS W OTH RESP MANIFEST Status: Acute (3) Nausea and vomiting SNOMED Code(s): 12248393 Code(s): R11.2 - NAUSEA WITH VOMITING, UNSPECIFIED Status: Acute Qualifiers: Vomiting type: unspecified Vomiting Intractability: non-intractable Qualified Code(s): R11.2 - Nausea with vomiting, unspecified (4) Acute hypoxemic respiratory failure SNOMED Code(s): 942865805 Code(s): J96.01 - ACUTE RESPIRATORY FAILURE WITH HYPOXIA Status: Acute (5) Atrial fibrillation SNOMED Code(s): 36026699 Code(s): I48.91 - UNSPECIFIED ATRIAL FIBRILLATION Status: Acute (6) Supratherapeutic INR SNOMED Code(s): 351689516 Code(s): R79.1 - ABNORMAL COAGULATION PROFILE Status: Acute (7) Hypomagnesemia SNOMED Code(s): 563145592 Code(s): E83.42 - HYPOMAGNESEMIA Status: Acute (8) Hypophosphatemia SNOMED Code(s): 4536599 Code(s): E83.39 - OTHER DISORDERS OF PHOSPHORUS METABOLISM Status: Acute (9) Hypokalemia SNOMED Code(s): 55696209 Code(s): E87.6 - HYPOKALEMIA Status: Acute (10) Pulmonary edema SNOMED Code(s): 69829078 Code(s): J81.1 - CHRONIC PULMONARY EDEMA Status: Acute (11) Volume overload SNOMED Code(s): 14595280 Code(s): E87.70 - FLUID OVERLOAD, UNSPECIFIED Status: Acute - Problem List Review Problem List Initiated/Reviewed/Updated: Yes - Plan Plan:: DOA - Already diagnosed with influenza A form grandson - Worsening shortness of breath + orthopnea and PND - O2 sat on admission 83% on RA--> placed on NC - CXR with signs of vascular congestion, cant rule out PNA - Crackles and wheezing on physical exam - GFR 49, unknown baseline - INR 3.03 Day 1 - Still requiring 1.5-2.5L for O2sat > 90% - WBC down from 5010 to 1760 - K improved from 3.2 to 3.4 - GFR improved - Procalcitonin ordered - Positive Influenza A on panels - Sepsis alert called with LA 3.5 - Started IVF at 150 - Started on Rocephin and Azithromycin - Replaced K and Magnesium Day 2 - INR > 4 - Lactic acid down from 3.8 to 1.9 with IVF - Phosphate 2.1 - Procalcitonin negative--> discontinue antibiotics - Respiratory status declined, SatO2 89% on 36% FiO2 - Urine output 600 - BP trend 114-147/50-79 - HR trend 58-97 Day 3 - Repeat CXR with signs of volume overload - Started on Lasix - WBC improved from 9.71 to 5.37 - INR still > 4 - PO4 still 2.1 - Magnesium 1.7 - K 3.1 - Weight down from 135.8 to 131.5 - UO 2850 - BP trend 124-145/63-91 - Hr trend 50-110 - Tmax 98.1 - Sat > 88% Bilateral pneumonia 2/2 Influenza A Acute hypoxemic respiratory failure Heart failure exacerbation Neutropenia - Continue furosemide - Daily weights - Strict I/O - Budesonide and DuoNeb scheduled - Tessalon Perles and Guaifenesin scheduled Atrial fibrillation, on warfarin Supratherapeutic INR - Hold warfarin - Diltiazem 180 - Metoprolol 25 BID Chronic kidney disease (CKD), stage III (moderate) Multiple electrolyte abnormalities - 4g MgSO4, 30mmol Kphos, 20mEq IV KCL, 40 PO KCl - Renally dosed medications - Monitor urine output - Avoid nephrotoxic agents Hypoalbuminemia - Prealbumin level - Dietary consult PROPHYLAXIS DVT- compression stockings GI-not indicated CODE STATUS: FULL CODE DISPOSITION: Patient will remain admitted for diuresis, monitorization of respiratory status as well as scheduled breathing treatments.
--- NOTE | 2019-12-14 14:54 | PCM.PN ---
- General Info Date of Service: 12/13/19 Subjective Update: BM yesterday Neutropenic diet, tolerating Slept OK - Patient Data Vitals - Most Recent: Last Vital Signs Temp 97.8 F 12/14/19 04:00 Pulse 100 12/14/19 09:23 Resp 24 H 12/14/19 04:00 BP 115/55 L 12/14/19 09:23 Pulse Ox 92 L 12/14/19 10:36 Weight - Most Recent: 131.542 kg - Exam Physical Findings Comments:: Quality Assessment: Supplemental Oxygen, Other (confounded by body habitus) General: Alert, Oriented, Cooperative, Mild Distress HEENT: Conjunctiva Clear, EACs Clear, EOMI, Hearing Intact, Mucosa Moist & [place] , Nares Patent, Normal Nasal Septum Neck: Supple, Trachea Midline, +2 Carotid Pulse wo Bruit, Full Range of Motion. No: Lymphadenopathy Lungs: Decreased Breath Sounds, Crackles. No: Rales, Rhonchi, Rub, Stridor, Wheezing Cardiovascular: Regular Rate, Regular Rhythm. No: Systolic Murmur, Diastolic Murmur, Rubs, Gallop/S3, Gallop/S4 GI/Abdominal Exam: Soft, Distended. No: Guarding, Rigid, Rebound, Tender Extremities: Normal Inspection, Non-Tender, Pedal Edema, Slow Capillary Refill Skin: Warm, Dry Neuro Extensive - Mental Status: Alert, Oriented x3, Normal Mood/Affect, Normal Cognition, Memory Intact Psychiatric: Alert, Anxious Sepsis Event Note - Evaluation Sepsis Screening Result: No Definite Risk - Problem List & Annotations (1) Bilateral pneumonia SNOMED Code(s): 636716664 Code(s): J18.9 - PNEUMONIA, UNSPECIFIED ORGANISM Status: Acute (2) Influenza A SNOMED Code(s): 074631677 Code(s): J10.1 - FLU DUE TO OTH IDENT INFLUENZA VIRUS W OTH RESP MANIFEST Status: Acute (3) Nausea and vomiting SNOMED Code(s): 78193626 Code(s): R11.2 - NAUSEA WITH VOMITING, UNSPECIFIED Status: Acute Qualifiers: Vomiting type: unspecified Vomiting Intractability: non-intractable Qualified Code(s): R11.2 - Nausea with vomiting, unspecified (4) Acute hypoxemic respiratory failure SNOMED Code(s): 379170318 Code(s): J96.01 - ACUTE RESPIRATORY FAILURE WITH HYPOXIA Status: Acute (5) Atrial fibrillation SNOMED Code(s): 44339484 Code(s): I48.91 - UNSPECIFIED ATRIAL FIBRILLATION Status: Acute (6) Supratherapeutic INR SNOMED Code(s): 637189424 Code(s): R79.1 - ABNORMAL COAGULATION PROFILE Status: Acute (7) Hypomagnesemia SNOMED Code(s): 345463306 Code(s): E83.42 - HYPOMAGNESEMIA Status: Acute (8) Hypophosphatemia SNOMED Code(s): 8678254 Code(s): E83.39 - OTHER DISORDERS OF PHOSPHORUS METABOLISM Status: Acute (9) Hypokalemia SNOMED Code(s): 33898855 Code(s): E87.6 - HYPOKALEMIA Status: Acute (10) Pulmonary edema SNOMED Code(s): 15320088 Code(s): J81.1 - CHRONIC PULMONARY EDEMA Status: Acute (11) Volume overload SNOMED Code(s): 29222124 Code(s): E87.70 - FLUID OVERLOAD, UNSPECIFIED Status: Acute - Problem List Review Problem List Initiated/Reviewed/Updated: Yes - Plan Plan:: DOA - Already diagnosed with influenza A form grandson - Worsening shortness of breath + orthopnea and PND - O2 sat on admission 83% on RA--> placed on NC - CXR with signs of vascular congestion, cant rule out PNA - Crackles and wheezing on physical exam - GFR 49, unknown baseline - INR 3.03 Day 1 - Still requiring 1.5-2.5L for O2sat > 90% - WBC down from 5010 to 1760 - K improved from 3.2 to 3.4 - GFR improved - Procalcitonin ordered - Positive Influenza A on panels - Sepsis alert called with LA 3.5 - Started IVF at 150 - Started on Rocephin and Azithromycin - Replaced K and Magnesium Day 2 - INR > 4 - Lactic acid down from 3.8 to 1.9 with IVF - Phosphate 2.1 - Procalcitonin negative--> discontinue antibiotics - Respiratory status declined, SatO2 89% on 36% FiO2 - Urine output 600 - BP trend 114-147/50-79 - HR trend 58-97 Bilateral pneumonia 2/2 Influenza A Acute hypoxemic respiratory failure Heart failure exacerbation Neutropenia - Rocephin and Azithromycin, discontinue - Repeat CXR - Budesonide and DuoNeb scheduled - Tessalon Perles and Guaifenesin scheduled Atrial fibrillation, on warfarin Supratherapeutic INR - Hold warfarin - Diltiazem 180 - Metoprolol 25 BID Chronic kidney disease (CKD), stage III (moderate) - Renally dosed medications - Monitor urine output - Avoid nephrotoxic agents Hypoalbuminemia - Prealbumin level - Dietary consult PROPHYLAXIS DVT- compression stockings GI-not indicated CODE STATUS: FULL CODE DISPOSITION: Patient will remain admitted for monitorization of respiratory status as well as scheduled breathing treatments.
[2019-12-14] MEDS: Potassium Chloride 10 MEQ in Premix Bag 1 BAG IV SCH ×2 (15:02→16:08)
[2019-12-14] MEDS: Potassium Phosphates 30 MMOLE in Sodium Chloride 0.9% 500 ML IV SCH ×2 (17:33→22:09)
[2019-12-14] MEDS ORDERED: Warfarin Sliding Scale PO SCH (18:00)
[2019-12-14] MEDS: diphenhydrAMINE 25 MG Cap PO SCH (21:58)
[2019-12-15] MEDS: Ipratropium 0.02% 0.5 MG/2.5 ML Neb Soln NEB SCH ×4 (02:31→13:32)
[2019-12-15] MEDS: Budesonide 0.5 MG/2 ML Neb Susp NEB SCH (06:01)
[2019-12-15] MEDS: Furosemide 40 MG Tab PO SCH ×2 (06:49→15:00)
[2019-12-15] MEDS: Benzonatate 100 MG Cap PO SCH ×2 (08:15→15:00)
[2019-12-15] MEDS: Potassium Chloride 20 MEQ Tab.ER PO SCH (08:15)
[2019-12-15] MEDS: Diltiazem 180 MG Cap.CD PO SCH (08:15)
[2019-12-15] MEDS: Allopurinol 100 MG Tab PO SCH (08:15)
[2019-12-15] MEDS: guaiFENesin 600 MG Tab.ER PO SCH ×2 (08:16→15:00)
[2019-12-15] MEDS: Metoprolol Tartrate 25 MG Tab PO SCH (08:16)
--- NOTE | 2019-12-15 11:37 | PCM.PN ---
- General Info Date of Service: 12/15/19 Admission Dx/Problem (Free Text): Admission Diagnosis/Problem Admission Diagnosis/Problem Pneumonia - Patient Data Vitals - Most Recent: Last Vital Signs Temp 97.9 F 12/15/19 08:14 Pulse 86 12/15/19 08:16 Resp 20 12/15/19 08:14 BP 133/51 L 12/15/19 08:16 Pulse Ox 93 L 12/15/19 09:23 Weight - Most Recent: 288 lb 14.4 oz I&O - Last 24 Hours: Intake & Output 12/14/19 12/15/19 12/15/19 22:59 06:59 14:59 Intake Total 1446 1300 440 Output Total 975 Balance 1446 325 440 Lab Results Last 24 Hours: Laboratory Results - last 24 hr 12/13/19 12/15/19 12/15/19 Range/Units 04:55 05:56 10:15 PT 26.4 H D (9.7-12.0) SECONDS INR 2.55 Sodium 144 (136-145) mEq/L Potassium 4.1 (3.5-5.1) mEq/L Chloride 105 (98-107) mEq/L Carbon Dioxide 32 (21-32) mEq/L Anion Gap 11.1 (5-15) BUN 12 (7-18) mg/dL Creatinine 0.9 (0.55-1.02) mg/dL Est Cr Clr Drug Dosing 59.89 mL/min Estimated GFR (MDRD) > 60 (>60) mL/min BUN/Creatinine Ratio 13.3 L (14-18) Glucose 109 (80-115) mg/dL Calcium 8.3 L (8.5-10.1) mg/dL Phosphorus 2.7 (2.6-4.7) mg/dL Magnesium 2.2 (1.8-2.4) mg/dl Procalcitonin 0.05 (<0.10) ng/mL Pato Results Last 24 Hours: Microbiology 12/11/19 15:27 Aerobic Blood Culture - Preliminary Blood NO GROWTH AFTER 3 DAYS Anaerobic Blood Culture - Preliminary NO GROWTH AFTER 3 DAYS 12/11/19 15:20 Aerobic Blood Culture - Preliminary Blood NO GROWTH AFTER 3 DAYS Anaerobic Blood Culture - Preliminary NO GROWTH AFTER 3 DAYS 12/12/19 15:03 Aerobic Blood Culture - Preliminary Blood - Venous - Lab Draw NO GROWTH AFTER 2 DAYS Anaerobic Blood Culture - Final 12/12/19 14:51 Aerobic Blood Culture - Preliminary Blood - Venous NO GROWTH AFTER 2 DAYS Anaerobic Blood Culture - Preliminary NO GROWTH AFTER 2 DAYS Med Orders - Current: Current Medications Acetaminophen (Tylenol) 650 mg PO Q4H PRN PRN Reason: Pain (Mild 1-3)/fever Allopurinol (Zyloprim) 200 mg PO DAILY [facility] Last Admin: 12/15/19 08:15 Dose: 200 mg Benzonatate (Tessalon Perles) 100 mg PO TID [facility] Last Admin: 12/15/19 08:15 Dose: 100 mg Budesonide (Pulmicort) 0.5 mg NEB BIDRT [facility] Last Admin: 12/15/19 06:01 Dose: 0.5 mg Diltiazem HCl (Cardizem Cd) 180 mg PO DAILY [facility] Last Admin: 12/15/19 08:15 Dose: 180 mg Diphenhydramine HCl (Benadryl) 25 mg PO BEDTIME [facility] Last Admin: 12/14/19 21:58 Dose: 25 mg Furosemide (Lasix) 60 mg PO BIDDIURETIC [facility] Last Admin: 12/15/19 06:49 Dose: 60 mg Guaifenesin (Mucinex) 600 mg PO TID [facility] Last Admin: 12/15/19 08:16 Dose: 600 mg Potassium Phosphate 30 mmole/ (Sodium Chloride) 510 mls @ 102 mls/hr IV ASDIRECTED [facility] Stop: 12/15/19 16:44 Last Admin: 12/14/19 22:09 Dose: 102 mls/hr Ipratropium Portia (Atrovent) 0.5 mg NEB Q4HRRT [facility] Last Admin: 12/15/19 09:23 Dose: 0.5 mg Lorazepam (Ativan) 1 mg PO BEDTIME PRN PRN Reason: Anxiety Last Admin: 12/13/19 20:30 Dose: 1 mg Metoprolol Tartrate (Lopressor) 25 mg PO BID [facility] Last Admin: 12/15/19 08:16 Dose: 25 mg Ondansetron HCl (Zofran Odt) 4 mg PO Q6H PRN PRN Reason: nausea, able to take PO Ondansetron HCl (Zofran) 4 mg IV Q6H PRN PRN Reason: Nausea/Vomiting Potassium Chloride (Klor-Con M20) 20 meq PO DAILY [facility] Last Admin: 12/15/19 08:15 Dose: 20 meq Warfarin Sodium (Pharmacy To Dose - Warfarin) 1 dose .XX ASDIRECTED PRN PRN Reason: RX TO DOSE WARFARIN Warfarin Sodium (Coumadin) 5 mg PO QPM [facility] Stop: 12/15/19 18:01 Discontinued Medications Acetylcysteine (Mucomyst 20%) 800 mg NEB BIDRT [facility] Last Admin: 12/12/19 05:38 Dose: 800 mg Albuterol/Ipratropium (Duoneb 3.0-0.5 Mg/3 Ml) 3 ml NEB ONETIME ONE Stop: 12/11/19 14:46 Last Admin: 12/11/19 15:06 Dose: 3 ml Albuterol/Ipratropium (Duoneb 3.0-0.5 Mg/3 Ml) Confirm Administered Dose 3 ml .ROUTE .STK-MED ONE Stop: 12/11/19 15:01 Last Admin: 12/11/19 15:07 Dose: Not Given Albuterol/Ipratropium (Duoneb 3.0-0.5 Mg/3 Ml) 3 ml NEB Q6HRRT PRN PRN Reason: wheezing/SOB/cough Furosemide (Lasix) 60 mg PO DAILY [facility] Last Admin: 12/13/19 09:33 Dose: 60 mg Furosemide (Lasix) 60 mg IVPUSH NOW ONE Stop: 12/12/19 20:00 Last Admin: 12/12/19 20:15 Dose: 60 mg Ceftriaxone Sodium 2 gm/ (Sodium Chloride) 100 mls @ 200 mls/hr IV Q24H ONE Stop: 12/11/19 15:35 Last Admin: 12/11/19 15:30 Dose: 200 mls/hr Azithromycin 500 mg/ Sodium (Chloride) 250 mls @ 250 mls/hr IV Q24H [facility] Last Admin: 12/11/19 18:44 Dose: Not Given Ceftriaxone Sodium 2 gm/ (Sodium Chloride) 100 mls @ 200 mls/hr IV Q24H [facility] Last Admin: 12/12/19 14:03 Dose: 200 mls/hr Azithromycin 500 mg/ Sodium (Chloride) 250 mls @ 250 mls/hr IV Q24H [facility] Last Admin: 12/12/19 18:40 Dose: 250 mls/hr Magnesium Sulfate/Dextrose (Magnesium Sulfate In D5w 100 Premix) 1 gm in 100 mls @ 100 mls/hr IV ONETIME ONE Stop: 12/12/19 12:29 Last Admin: 12/12/19 11:35 Dose: 100 mls/hr Lactated Ringer's (Ringers, Lactated) 1,000 mls @ 150 mls/hr IV ASDIRECTED [facility] Last Admin: 12/12/19 18:40 Dose: 150 mls/hr Sodium Chloride (Normal Saline) 1,000 mls @ 999 mls/hr IV ONETIME ONE Stop: 12/12/19 17:12 Last Admin: 12/12/19 17:36 Dose: Not Given Lactated Ringer's (Ringers, Lactated) 1,300 mls @ 1,298.557 mls/hr IV .BOLUS ONE Stop: 12/12/19 17:45 Last Admin: 12/12/19 17:14 Dose: 1,298.557 mls/hr Magnesium Sulfate 4 gm/ Premix 100 mls @ 25 mls/hr IV ONETIME ONE Stop: 12/14/19 11:46 Last Admin: 12/14/19 13:38 Dose: Not Given Potassium Chloride 10 meq/ (Premix) 100 mls @ 100 mls/hr IV Q1H [facility] Stop: 12/14/19 13:59 Last Admin: 12/14/19 16:08 Dose: 100 mls/hr Magnesium Sulfate 4 gm/ Premix 50 mls @ 12.5 mls/hr IV ONETIME ONE Stop: 12/14/19 16:14 Last Admin: 12/14/19 12:44 Dose: 12.5 mls/hr Lorazepam (Ativan) 1 mg PO ONETIME ONE Stop: 12/13/19 09:50 Last Admin: 12/13/19 10:05 Dose: 1 mg Methylprednisolone Sodium Succinate (Solu-Medrol) 125 mg IVPUSH ONETIME ONE Stop: 12/11/19 14:47 Last Admin: 12/11/19 15:04 Dose: 125 mg Potassium Chloride (Klor-Con M20) 20 meq PO DAILY [facility] Last Admin: 12/12/19 09:19 Dose: 20 meq Potassium Chloride (Klor-Con M20) 40 meq PO BID [facility] Stop: 12/12/19 21:01 Last Admin: 12/12/19 20:19 Dose: 40 meq Potassium Chloride (Klor-Con M20) 40 meq PO BID [facility] Stop: 12/14/19 21:01 Last Admin: 12/14/19 22:07 Dose: 40 meq Warfarin Sodium (Coumadin Sliding Scale) 0 each PO QPM [facility] Stop: 12/12/19 18:01 Last Admin: 12/12/19 17:38 Dose: Not Given Warfarin Sodium (Coumadin Sliding Scale) 0 each PO QPM [facility] Stop: 12/13/19 18:01 Last Admin: 12/13/19 18:47 Dose: Not Given Warfarin Sodium (Coumadin Sliding Scale) 0 each PO QPM [facility] Stop: 12/14/19 18:01 Last Admin: 12/14/19 17:39 Dose: Not Given Sepsis Event Note - Evaluation Sepsis Screening Result: No Definite Risk - Focused Exam Vital Signs: Vital Signs Temp Pulse Resp BP Pulse Ox Pulse Ox Pulse Ox 12/15/19 09:23 93 L 12/15/19 08:16 86 133/51 L 12/15/19 08:14 97.9 F 86 20 133/51 L 94 L 12/15/19 06:27 93 L 12/15/19 03:37 97.5 F 84 14 115/64 92 L 12/15/19 02:35 89 L Date Exam was Performed: 12/15/19 Time Exam was Performed: 11:37 - Problem List & Annotations (1) Bilateral pneumonia SNOMED Code(s): 174096708 Code(s): J18.9 - PNEUMONIA, UNSPECIFIED ORGANISM Status: Acute Current Visit: Yes (2) Hypoxia SNOMED Code(s): 410934579 Code(s): R09.02 - HYPOXEMIA Status: Acute Current Visit: Yes (3) Pneumonia SNOMED Code(s): 858962386 Code(s): J18.9 - PNEUMONIA, UNSPECIFIED ORGANISM Status: Acute Current Visit: Yes Qualifiers: Pneumonia type: due to unspecified organism Laterality: bilateral Lung location: unspecified part of lung Qualified Code(s): J18.9 - Pneumonia, unspecified organism - Plan Plan:: Sepsis alert - IV fluids 150, Azithro and rocephin, LA 3.5, No tachycardia, Regular RR, BP normal, Repeat BC, Repeat CBC, CMP, CRP, Procal
[2019-12-15 11:56] VITALS: BP 110/42; PULSE 82
--- NOTE | 2019-12-15 13:21 | PCM.DCSUM1 ---
Discharge Summary - Hospital Course HPI Initial Comments: This is a 64 year old female with past medical history of atrial fibrillation who comes to the ED for worsening shortness of breath. As per patient she was in usual state of health until last Sunday when she started having coughing spells that wouldn't stop until causing her to vomit associated with fever that continued to worsen for which on Sunday she decided to go to clinic in [place] where she was evaluated and found to have a temperature of 103.6--> she was given some IV fluids and repeat temp was 104.9. A flu swab was done and she was diagnosed with influenza A She was then sent to ER for further evaluation, once in the ED she was given IV fluids and antibiotics, discharged on nebulizations, PRN albuterol and antibiotics. She went home and continued to worsen as well as progressive worsening of respiratory status with inability to lay down without getting short of breath for which she went back to clinic today and was sent to the ED. No fevers since Sunday. Grandson diagnosed with Flu A last week. Associated with productive cough of clear sputum, coughing spells that end with vomiting, sore throat, nasal congestion, postnasal drip and upset stomach with anorexia. Diagnosis: Stroke: No - Discharge Data Discharge Date: 12/15/19 Discharge Disposition: Home, Self-Care 01 Condition: Good - Referral to Home Health Primary Care Physician: Rachelle Tao PA-C - Discharge Diagnosis/Problem(s) (1) Bilateral pneumonia SNOMED Code(s): 893001947 ICD Code: J18.9 - PNEUMONIA, UNSPECIFIED ORGANISM Status: Acute (2) Influenza A SNOMED Code(s): 261270599 ICD Code: J10.1 - FLU DUE TO OTH IDENT INFLUENZA VIRUS W OTH RESP MANIFEST Status: Acute (3) Nausea and vomiting SNOMED Code(s): 99172585 ICD Code: R11.2 - NAUSEA WITH VOMITING, UNSPECIFIED Status: Acute Qualifiers: Vomiting type: unspecified Vomiting Intractability: non-intractable Qualified Code(s): R11.2 - Nausea with vomiting, unspecified (4) Acute hypoxemic respiratory failure SNOMED Code(s): 265512107 ICD Code: J96.01 - ACUTE RESPIRATORY FAILURE WITH HYPOXIA Status: Acute (5) Atrial fibrillation SNOMED Code(s): 93513318 ICD Code: I48.91 - UNSPECIFIED ATRIAL FIBRILLATION Status: Acute (6) Supratherapeutic INR SNOMED Code(s): 433642613 ICD Code: R79.1 - ABNORMAL COAGULATION PROFILE Status: Acute (7) Hypomagnesemia SNOMED Code(s): 765681886 ICD Code: E83.42 - HYPOMAGNESEMIA Status: Acute (8) Hypophosphatemia SNOMED Code(s): 1548621 ICD Code: E83.39 - OTHER DISORDERS OF PHOSPHORUS METABOLISM Status: Acute (9) Hypokalemia SNOMED Code(s): 19399858 ICD Code: E87.6 - HYPOKALEMIA Status: Acute (10) Pulmonary edema SNOMED Code(s): 16757928 ICD Code: J81.1 - CHRONIC PULMONARY EDEMA Status: Acute (11) Volume overload SNOMED Code(s): 62617442 ICD Code: E87.70 - FLUID OVERLOAD, UNSPECIFIED Status: Acute - Patient Summary/Data Consults: Consultations 12/11/19 15:59 Respiratory Care Assess and Treatment [CONS] Routine 12/15/19 10:17 OT Evaluation and Treatment [CONS] Routine PT Evaluation and Treatment [CONS] Routine Hospital Course: DOA - Already diagnosed with influenza A form grandson - Worsening shortness of breath + orthopnea and PND - O2 sat on admission 83% on RA--> placed on NC - CXR with signs of vascular congestion, cant rule out PNA - Crackles and wheezing on physical exam - GFR 49, unknown baseline - INR 3.03 Day 1 - Still requiring 1.5-2.5L for O2sat > 90% - WBC down from 5010 to 1760 - K improved from 3.2 to 3.4 - GFR improved - Procalcitonin ordered - Positive Influenza A on panels - Sepsis alert called with LA 3.5 - Started IVF at 150 - Started on Rocephin and Azithromycin - Replaced K and Magnesium Day 2 - INR > 4 - Lactic acid down from 3.8 to 1.9 with IVF - Phosphate 2.1 - Procalcitonin negative--> discontinue antibiotics - Respiratory status declined, SatO2 89% on 36% FiO2 - Urine output 600 - BP trend 114-147/50-79 - HR trend 58-97 Day 3 - Repeat CXR with signs of volume overload - Started on Lasix - WBC improved from 9.71 to 5.37 - INR still > 4 - PO4 still 2.1 - Magnesium 1.7 - K 3.1 - Weight down from 135.8 to 131.5 - UO 2850 - BP trend 124-145/63-91 - Hr trend 50-110 - Tmax 98.1 - Sat > 88% Day 4 - INR therapeutic - on RA since 3AM - Respiratory status at baseline - Patient Instructions Diet: Heart Healthy Diet, Fluid Restriction - Discharge Plan *PRESCRIPTION DRUG MONITORING PROGRAM REVIEWED*: Not Applicable *COPY OF PRESCRIPTION DRUG MONITORING REPORT IN PATIENT OPAL: Not Applicable Prescriptions/Med Rec: RX: Furosemide [Lasix] 60 mg PO BIDDIURETIC #45 tablet RX: Potassium Chloride 40 meq PO DAILY #60 tab.er.prt RX: Warfarin [Coumadin] 5 mg PO QPM #30 tablet Home Medications: Home Meds RX: Metoprolol Tartrate 25 mg PO BID #60 tablet 08/31/15 [Rx] RX: Montelukast [Singulair] 10 mg PO BEDTIME 08/31/15 [History] RX: diphenhydrAMINE [Benadryl] 25 mg PO BEDTIME 08/31/15 [History] RX: Diltiazem [Cardizem CD] 180 mg PO DAILY 07/07/16 [History] RX: Cholecalciferol (Vitamin D3) [Vitamin D3] 5,000 unit PO DAILY 12/18/18 [ History] RX: Albuterol [Proventil HFA] 2 puff INH Q4H PRN #1 inhaler 12/05/19 [Rx] RX: allopurinoL [Zyloprim] 200 mg PO DAILY 12/11/19 [History] RX: Furosemide [Lasix] 60 mg PO BIDDIURETIC #45 tablet 12/15/19 [Rx] RX: Potassium Chloride 40 meq PO DAILY #60 tab.er.prt 12/15/19 [Rx] RX: Warfarin [Coumadin] 5 mg PO QPM #30 tablet 12/15/19 [Rx] Oxygen Therapy Mode: Room Air Patient Handouts: Influenza, Adult, [id number], Sepsis, Diagnosis, Adult, Heart Failure, Community-Acquired Pneumonia, Adult Forms: ED Department Discharge Referrals: Rachelle Tao PA-C [Primary Care Provider] - 12/18/19 11:00 am - Discharge Summary/Plan Comment DC Time >30 min.: Yes - General Info Date of Service: 12/15/19 Subjective Update: Feeling ok Slept OK No more SOB Tolerating diet Ambulating without assistance - Patient Data Vitals - Most Recent: Last Vital Signs Temp 98.1 F 12/15/19 11:53 Pulse 82 12/15/19 11:53 Resp 20 12/15/19 11:53 BP 110/42 L 12/15/19 11:53 Pulse Ox 93 L 12/15/19 11:53 Weight - Most Recent: 131.043 kg - Exam General: Reports: Alert, Oriented, Cooperative, No Acute Distress, Other ( PHYSICAL EXAM CONFOUNDED BY BODY HABITUS) HEENT: Reports: Pupils Equal, Pupils Reactive, EOMI, Mucous Membr. Moist/[place] Neck: Reports: Supple. Denies: Lymphadenopathy Lungs: Reports: Decreased Breath Sounds. Denies: Crackles, Rales, Rhonchi, Rub , Stridor, Wheezing Cardiovascular: Reports: Regular Rate, Regular Rhythm. Denies: Murmurs, Gallops , Rubs GI/Abdominal Exam: Distended. No: Guarding, Rigid, Rebound, Tender Back Exam: Denies: CVA Tenderness (L), CVA Tenderness (R), Paraspinal Tenderness , Vertebral Tenderness Extremities: Pedal Edema (improved) Neurological: Reports: No New Focal Deficit, Sensation Intact *Q Meaningful Use (DIS) - VTE *Q VTE Anticoagulation Contraindications: Medical/Procedure Contrai
[2019-12-15] MEDS ORDERED: FLU Vacc QS2019-20(6MOS+)/PF 60 MCG/0.5 ML SYRINGE IM ONE (14:00)
[2019-12-15] MEDS ORDERED: Warfarin 5 MG Tab PO SCH (18:00)
== END 2019-12-15 16:45 | disposition home or self-care (01) | DRG 193 ==
LOC: JD.ED 12:45 → JD.MS 15:59 → JD.ICU 12-12 18:59 → JD.MS 12-14 12:47
PROVIDERS: ADMIT Internal Medicine; ATTEND Internal Medicine
DX: J10.00 Influenza due to other identified influenza virus with unspecified type of pneumonia (principal); J96.01 Acute respiratory failure with hypoxia; J81.1 Chronic pulmonary edema; Z68.42 Body mass index [BMI] 45.0-49.9, adult; I48.91 Unspecified atrial fibrillation; H54.7 Unspecified visual loss; D70.9 Neutropenia, unspecified; I50.9 Heart failure, unspecified; K21.9 Gastro-esophageal reflux disease without esophagitis; M54.9 Dorsalgia, unspecified; G89.29 Other chronic pain; E66.9 Obesity, unspecified; N18.3 Chronic kidney disease, stage 3 (moderate); E88.09 Other disorders of plasma-protein metabolism, not elsewhere classified; R79.1 Abnormal coagulation profile; E87.6 Hypokalemia; E83.42 Hypomagnesemia; E83.39 Other disorders of phosphorus metabolism; E87.70 Fluid overload, unspecified; Z79.51 Long term (current) use of inhaled steroids; Z79.01 Long term (current) use of anticoagulants; Z79.899 Other long term (current) drug therapy; Z90.49 Acquired absence of other specified parts of digestive tract; Z99.81 Dependence on supplemental oxygen
CPT/HCPCS: 36415; 36600; 51702; 71045; 71045-26; 71046; 71046-26; 80048; 80053; 81003; 82803; 83605; 83615; 83735; 84100; 84145; 85007; 85025; 85027; 85610; 85652; 86140; 86738; 87040; 87205; 87486; 87581; 87632; 87798; 87899; 90686; 93005; 93010; 94640; 94667; 94668; 94761; 96365; 96375; 97161-GP; 97165-GO; 99222; 99232; 99239; 99284; 99285-25; A9270-GY; G0008; J0456; J0696; J1940; J2930; J3475; J3480; J3490; J7040; J7050; J7120; J7620-GY

== ENCOUNTER 2021-06-05 21:17 | Emergency (ER) | payer MEDICAID ==
[2021-06-05] MEDS ORDERED: Sodium Chloride 0.9% 10 ML Syringe FLUSH PRN (21:42)
--- NOTE | 2021-06-05 21:44 | EDM.PDOC ---
ED HPI GENERAL MEDICAL PROBLEM - General Chief Complaint: Lower Extremity Injury/Pain Stated Complaint: [facility] Time Seen by Provider: 06/05/21 21:25 Source of Information: Reports: Patient History Limitations: Reports: No Limitations - History of Present Illness INITIAL COMMENTS - FREE TEXT/NARRATIVE: A trauma alert was called for this patient. Ms. Stephenson is a 65-year-old woman who is now brought to the ED by EMS after falling at home. She states that she tripped and fell while in her garden around noon today, landing on her right leg. She is on Coumadin for atrial fibrillation, and developed a hematoma to the right leg. She has pain to the right leg, but is able to bear weight. She is otherwise uninjured. Here in the ED, the patient is initially found to be slightly tachycardic at 102 bpm, otherwise, she is hemodynamically stable, afebrile, saturating 98% on room air. She appears to be uncomfortable, but in no acute distress. Prior to her fall, the patient denies having a recent fever, chills, sore throat, ear pain, nasal or sinus congestion, cough, dyspnea, chest pain, palpitations, nausea, vomiting, constipation, diarrhea, abdominal pain, urinary symptoms, recent weight gain or weight loss, recent bloody bowel movements or black bowel movements, recent joint aches, headaches, or rashes. The patient's PCP is MONICA Seaman. Her Electronic Sales And Service Technician is Dr. Fermin Youngblood. Her Machine Fastener is Dr. Spencer Perez. She has not received a COVID vaccination. Treatments REAL ESTATE COORDINATOR: Reports: IV/IO, NSAIDS Other Treatments REAL ESTATE COORDINATOR: fentanyl Right Lower Leg Pain Score (Numeric/FACES): 9 - Related Data Allergies Allergy/AdvReac Type Severity Reaction Status Date / Time No Known Allergies Allergy Verified 06/05/21 21:32 Home Meds: Home Meds Metoprolol Tartrate 25 mg PO BID #60 tablet 08/31/15 [Rx] Montelukast [Singulair] 10 mg PO BEDTIME 08/31/15 [History] Diltiazem [Cardizem CD] 180 mg PO DAILY 07/07/16 [History] Warfarin [Coumadin] 5 mg PO QPM #30 tablet 12/15/19 [Rx] Allopurinol [Zyloprim] 300 mg PO DAILY 06/05/21 [History] Furosemide [Lasix] 60 mg PO DAILY 06/05/21 [History] Omeprazole 40 mg PO DAILY 06/05/21 [History] Potassium Chloride 20 meq PO DAILY 06/05/21 [History] Past Medical History HEENT History: Reports: Impaired Vision (wears glasses) Cardiovascular History: Reports: Afib Respiratory History: Reports: Asthma (PFT-proven) Gastrointestinal History: Reports: GERD Genitourinary History: Reports: Renal Calculus Musculoskeletal History: Reports: Fracture (left patella) Endocrine/Metabolic History: Reports: Obesity/BMI 30+ Hematologic History: Reports: Blood Transfusion(s) - Infectious Disease History Infectious Disease History: Reports: Chicken Pox, Influenza, Measles, MRSA - Past Surgical History HEENT Surgical History: Reports: Oral Surgery (dental extractions) GI Surgical History: Reports: Appendectomy Musculoskeletal Surgical History: Reports: Other (See Below) (left patella repair) Social & Family History - Tobacco Use Tobacco Use Status *Q: Former Tobacco User Years of Tobacco use: 15 Packs/Tins Daily: 0.3 Month/Year Tobacco Last Used: Quit 1990 Tobacco Use Comment: Started smoking 1975 - Caffeine Use Caffeine Use: Reports: Coffee Other Caffeine Use: 2 cups/coffee - Alcohol Use Alcohol Use History: No - Recreational Drug Use Recreational Drug Use: No - Living Situation & Occupation Living situation: Reports: , Alone 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 ED EXAM, GENERAL - Physical Exam Exam: See Below Exam Limited By: No Limitations General Appearance: Alert, WD/WN, Mild Distress (appears uncomfortable) Ears: Normal External Exam, Hearing Grossly Normal Nose: Normal Inspection Throat/Mouth: Normal Inspection, Normal Lips, Normal Voice, No Airway Compromise Head: Atraumatic, Normocephalic Neck: Normal Inspection, Full Range of Motion Respiratory/Chest: No Respiratory Distress, Lungs Clear, Normal Breath Sounds, No Accessory Muscle Use Cardiovascular: Normal Peripheral Pulses, Regular Rate, Rhythm, No Gallop, No JVD, No Murmur, No Rub Peripheral Pulses: 3+: Radial (L), Radial (R) GI/Abdominal: Normal Bowel Sounds, Soft, Non-Tender, No Organomegaly, No Distention, No Abnormal Bruit, No Mass Extremities: Other (Significant adipose deposits both lower extremities, with hyperpigmentation, consistent with chronic venous stasis changes. Large ecchymosis noted to the lateral aspect of the right leg.) Neurological: Alert, Oriented, Normal Cognition, No Motor/Sensory Deficits Psychiatric: Flat Affect Skin Exam: Warm, Dry, Intact, Normal Color, No Rash Course - Vital Signs Last Recorded V/S: Last Vital Signs Temp 37.1 C 06/05/21 21:28 Pulse 102 H 06/05/21 21:28 Resp 15 06/05/21 21:28 BP 133/62 06/05/21 21:28 Pulse Ox 98 06/05/21 21:28 - Orders/Labs/Meds Orders: Active Orders 24 hr Category Date Time Status Peripheral IV Care [RC] . DIRECTED Care 06/05/21 21:42 Active Tibia Fibula Rt [CR] Stat Exams 06/05/21 21:40 Taken Sodium Chloride 0.9% [Saline Flush] Med 06/05/21 21:42 Active 10 ml FLUSH ASDIRECTED PRN Peripheral IV Insertion Adult [OM.PC] Routine Oth 06/05/21 21:42 Ordered Medication Orders Sodium Chloride (Sodium Chloride 0.9% 10 Ml Syringe) 10 ml FLUSH ASDIRECTED PRN PRN Reason: Keep Vein Open Labs: Laboratory Tests 06/05/21 06/05/21 06/05/21 Range/Units 21:40 21:40 21:40 WBC 8.01 (3.98-10.04) K/mm3 RBC 3.15 L (3.98-5.22) M/mm3 Hgb 9.1 L D (11.2-15.7) gm/dl Hct 28.4 L (34.1-44.9) % MCV 90.2 (79.4-94.8) fl MCH 28.9 (25.6-32.2) pg MCHC 32.0 L (32.2-35.5) g/dl RDW Std Deviation 52.3 H (36.4-46.3) fL Plt Count 230 (182-369) K/mm3 MPV 9.3 L (9.4-12.3) fl Neutrophils % (Manual) 77 H (40-60) % Band Neutrophils % 1 (0-10) % Lymphocytes % (Manual) 12 L (20-40) % Atypical Lymphs % 1 % Monocytes % (Manual) 4 (2-10) % Eosinophils % (Manual) 5 (0.7-5.8) % Basophils % (Manual) 0 L (0.1-1.2) Platelet Estimate Adequate Anisocytosis 1+ slight Ovalocytes 1+ slight RBC Morph Comment Not Reportable PT 24.6 H (9.7-12.0) SECONDS INR 2.34 APTT 35.8 H (21.7-31.4) SECONDS Sodium 144 (136-145) mEq/L Potassium 3.9 (3.5-5.1) mEq/L Chloride 108 H (98-107) mEq/L Carbon Dioxide 27 (21-32) mEq/L Anion Gap 12.9 (5-15) BUN 26 H (7-18) mg/dL Creatinine 1.2 H (0.55-1.02) mg/dL Est Cr Clr Drug Dosing TNP Estimated GFR (MDRD) 45 (>60) mL/min BUN/Creatinine Ratio 21.7 H (14-18) Glucose 114 H (70-99) mg/dL Calcium 8.3 L (8.5-10.1) mg/dL Total Bilirubin 0.6 (0.2-1.0) mg/dL AST 15 (15-37) U/L ALT 26 (14-59) U/L Alkaline Phosphatase 71 (46-116) U/L Total Protein 5.3 L (6.4-8.2) g/dl Albumin 3.1 L (3.4-5.0) g/dl Globulin 2.2 gm/dL Albumin/Globulin Ratio 1.4 (1-2) Meds: Medications Generic Name Dose Route Start Last Admin Trade Name Freq PRN Reason Stop Dose Admin Sodium Chloride 10 ml 06/05/21 21:42 Sodium Chloride 0.9% 10 Ml Syringe FLUSH ASDIRECTED PRN Keep Vein Open Discontinued Medications Generic Name Dose Route Start Last Admin Trade Name Freq PRN Reason Stop Dose Admin Hydromorphone HCl 1 mg 06/05/21 21:39 Hydromorphone 1 Mg/Ml Syringe IM 06/05/21 21:40 ONETIME ONE Hydromorphone HCl 1 mg 06/05/21 21:42 06/05/21 22:24 Hydromorphone 1 Mg/Ml Syringe IVPUSH 06/05/21 21:43 1 mg ONETIME ONE Administration Ondansetron HCl 4 mg 06/05/21 21:39 Ondansetron 4 Mg Tab.Dis PO 06/05/21 21:40 ONETIME ONE Ondansetron HCl 4 mg 06/05/21 21:42 06/05/21 22:24 Ondansetron 4 Mg/2 Ml Sdv IVPUSH 06/05/21 21:43 4 mg ONETIME ONE Administration - Re-Assessments/Exams Free Text/Narrative Re-Assessment/Exam: 06/05/21 21:40 I have ordered a CBC, CMP, coags, and x-rays of the patient's right tibia/fibula. I also ordered placement of a peripheral IV with some IV Dilaudid and IV Zofran, in anticipation that the patient may not be able to be discharged home. Although I do not suspect that we are going to find a significant injury, she may not be able to care for herself at home, therefore require placement into observation for snf placement. 06/05/21 23:01 3-view radiographs of the right tibia/fibula appear to be grossly normal, with no fractures or dislocations identified. Formal read per the Radiologist pending. The patient's CBC is remarkable for a H/H modestly depressed at 9.1/28.4, with remainder of her CBC being unremarkable. Her CMP is remarkable for BUN/Cr mildly elevated at 26/1.2, and slight hyperglycemia of 114, with the remainder of her CMP being unremarkable. The patient's PTT is elevated at 24.6 with an INR of 2.34. Her PTT is elevated at 35.8. 06/05/21 23:15 Test results discussed with the patient and her family. She is feeling no pain following the IV Dilaudid, however, it did cause her to have nausea, despite the IV Zofran. I offered to place the patient into observation, with the goal to get her into a snf until she is capable of taking care of herself, however, the patient refused that option. She believes that she can make it at home. I will have her take [id number] ibuprofen, and I will submit an [facility] prescriptions for Percocet and Zofran ODT that she can take home with her. She is to elevate her right lower extremity is much as possible, and she can apply warm compresses to the leg, which may help to mobilize some of the hematoma. If she finds it impossible to take care of herself at home, she should return to the ED. Departure - Departure Time of Disposition: 23:16 Disposition: Home, Self-Care 01 Condition: Good Clinical Impression: Hematoma of right lower leg, Fall at home - Discharge Information *PRESCRIPTION DRUG MONITORING PROGRAM REVIEWED*: Not Applicable *COPY OF PRESCRIPTION DRUG MONITORING REPORT IN PATIENT OPAL: Not Applicable Referrals: Rachelle Tao PA-C [Primary Care Provider] - Fermin Youngblood MD [Ordering Only Provider] - Spencer Perez MD [Ordering Only Provider] - Forms: ED Department Discharge Additional Instructions: You were seen in the emergency room after falling at home, injuring your right leg. Work-up in the ER included several blood tests and x-rays of your right leg. Your INR (Coumadin number) was found to be therapeutic at 2.34. Your x-rays show no broken bones or dislocations. Based on your history, physical exam, and ER tests, you have suffered a hematoma (collection of blood) to your right leg. Unfortunately, there is no way to get rid of a hematoma - your body will have to reabsorb it on its own over time. We recommend that you elevate your right leg is much as possible. A warm compress may help to thin the blood, as well. You may take [id number] ibuprofen, 2 to 3 tablets (400-600 mg) up to every 8 hours, as needed for discomfort. You may take 1 to 2 tablets of the prescription opioid Percocet up to every 6 hours, as needed for pain not relieved by ibuprofen. If you take Percocet, do not drive for 12 hours afterwards. Percocet may cause constipation, so consider taking a stool softener. You may dissolve 1 tablet of the anti-nausea medicine Zofran ODT on your tongue up to every 8 hours, as needed for nausea/vomiting. If you find that you are not able to take care of yourself at home, please return to the ER for placement into observation. Sepsis Event Note (ED) - Focused Exam Vital Signs: Vital Signs Temp Pulse Resp BP Pulse Ox 06/05/21 21:28 37.1 C 102 H 15 133/62 98 - My Orders Last 24 Hours: My Active Orders 06/05/21 21:40 Tibia Fibula Rt [CR] Stat 06/05/21 21:42 Peripheral IV Care [RC] . DIRECTED Sodium Chloride 0.9% [Saline Flush] 10 ml FLUSH ASDIRECTED PRN Peripheral IV Insertion Adult [OM.PC] Routine - Assessment/Plan Last 24 Hours: My Active Orders 06/05/21 21:40 Tibia Fibula Rt [CR] Stat 06/05/21 21:42 Peripheral IV Care [RC] . DIRECTED Sodium Chloride 0.9% [Saline Flush] 10 ml FLUSH ASDIRECTED PRN Peripheral IV Insertion Adult [OM.PC] Routine
[2021-06-05] MEDS: Ondansetron 4 MG/2 ML SDV IVPUSH ONE (22:24)
[2021-06-05] MEDS: HYDROmorphone 1 MG/ML Syringe IVPUSH ONE (22:24)
[2021-06-05] MEDS: HYDROmorphone 1 MG/ML Syringe IM ONE (23:47)
[2021-06-05] MEDS: Ondansetron 4 MG Tab.DIS PO ONE (23:48)
[2021-06-06 00:14] VITALS: BP 108/51; PULSE 103
--- NOTE | 2021-06-06 15:58 | CR ---
Right tibia and fibula: AP and lateral views of the right tibia and fibula were obtained. Comparison: No prior studies available. Soft tissue swelling is seen compatible with soft tissue hematoma within the lateral side. No discrete fracture or other acute abnormality is appreciated. Impression: 1. Soft tissue swelling compatible with hematoma. 2. No acute osseous abnormality is appreciated on 2 view right tibia and fibula study. Diagnostic code #2
== END 2021-06-06 00:05 | disposition home or self-care (01) ==
LOC: JD.ED 21:17
DX: S80.11XA Contusion of right lower leg, initial encounter (principal); I48.91 Unspecified atrial fibrillation; J45.909 Unspecified asthma, uncomplicated; K21.9 Gastro-esophageal reflux disease without esophagitis; E66.9 Obesity, unspecified; Z87.891 Personal history of nicotine dependence; Z79.01 Long term (current) use of anticoagulants; Z79.899 Other long term (current) drug therapy; W01.0XXA Fall on same level from slipping, tripping and stumbling without subsequent striking against object, initial encounter; Y92.007 Garden or yard of unspecified non-institutional (private) residence as the place of occurrence of the external cause
CPT/HCPCS: 36415; 73590; 80053; 85007; 85027; 85610; 85730; 96374; 96375; 99284; J1170; J2405

== ENCOUNTER 2021-06-08 11:39 | Emergency (ER) | payer MEDICAID ==
[2021-06-08 12:22] VITALS: BP 142/68; PULSE 88
--- NOTE | 2021-06-08 12:34 | EDM.PDOC ---
ED HPI GENERAL MEDICAL PROBLEM - General Chief Complaint: Lower Extremity Injury/Pain Stated Complaint: LEG PAIN Time Seen by Provider: 06/08/21 12:30 Source of Information: Reports: Patient, Old Records, RN Notes Reviewed History Limitations: Reports: No Limitations - History of Present Illness INITIAL COMMENTS - FREE TEXT/NARRATIVE: Patient is a 65-year-old female presents to the ER today for the evaluation of a bruised lower right leg. Patient notes that she was in this ER this weekend, for a fall in her garden, and was evaluated and was found to have no fractures. States that throughout the weekend, and worsening today she has developed bruising to her lower extremity, with a rather large blister to the lateral portion of her right calf, and another 1 on the back of her leg, that has since ruptured. The lateral blister is still intact. States that there is a small bit of tenderness and pain in the blister, she went to the [facility], to see if she could have this blister ruptured and bandaged but they sent her to the ER for evaluation of a blood clot in her lower leg. I do see where the patient is on blood thinners, warfarin, so is highly unlikely that she could have a blood clot, but the patient would like to make sure that there is indeed no clot, and then have the issue with the blister hopefully taking care of. Patient denies any other sick-like symptoms, fever/chills, cough/shortness of breath, nausea/vomiting/diarrhea. - Related Data Allergies Allergy/AdvReac Type Severity Reaction Status Date / Time No Known Allergies Allergy Verified 06/08/21 12:22 Home Meds: Home Meds Metoprolol Tartrate 25 mg PO BID #60 tablet 08/31/15 [Rx] Montelukast [Singulair] 10 mg PO BEDTIME 08/31/15 [History] Diltiazem [Cardizem CD] 180 mg PO DAILY 07/07/16 [History] Warfarin [Coumadin] 5 mg PO QPM #30 tablet 12/15/19 [Rx] Allopurinol [Zyloprim] 300 mg PO DAILY 06/05/21 [History] Furosemide [Lasix] 60 mg PO DAILY 06/05/21 [History] Omeprazole 40 mg PO DAILY 06/05/21 [History] Potassium Chloride 20 meq PO DAILY 09/05/21 [History] Cefdinir [Omnicef] 300 mg PO BID 7 Days #14 cap 06/08/21 [Rx] Past Medical History HEENT History: Reports: Impaired Vision Other HEENT History: wears bifocals Cardiovascular History: Reports: Afib Other Cardiovascular History: aflutter, vtach, lower extremity edema Respiratory History: Reports: Asthma Other Respiratory History: pulmonary nodule Gastrointestinal History: Reports: GERD Other Gastrointestinal History: hepatomegaly Genitourinary History: Reports: Renal Calculus Other Genitourinary History: kidney stones, UTI 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: 2 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 2 Musculoskeletal History: Reports: Fracture Other Musculoskeletal History: leg cramps Neurological History: Reports: None Psychiatric History: Reports: None Endocrine/Metabolic History: Reports: Obesity/BMI 30+ Other Endocrine/Metabolic History: enlarged thyroid Hematologic History: Reports: Blood Transfusion(s) Immunologic History: Reports: None Oncologic (Cancer) History: Reports: None Dermatologic History: Reports: Other (See Below) Other Dermatologic History: rojas, open wounds - Infectious Disease History Infectious Disease History: Reports: Chicken Pox, Influenza, Measles, MRSA - Past Surgical History Head Surgeries/Procedures: Reports: None HEENT Surgical History: Reports: Oral Surgery Respiratory Surgical History: Reports: None GI Surgical History: Reports: Appendectomy Neurological Surgical History: Reports: None Musculoskeletal Surgical History: Reports: Other (See Below) Other Musculoskeletal Surgeries/Procedures:: fx--patella with surgery. Oncologic Surgical History: Reports: None - History Comment History Comment: Pt uses albuteral inhaler when she gets a sinus infection. 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 ED EXAM, GENERAL - Physical Exam Exam: See Below Exam Limited By: No Limitations General Appearance: Alert, WD/WN, No Apparent Distress Respiratory/Chest: No Respiratory Distress, Lungs Clear, Normal Breath Sounds, No Accessory Muscle Use, Chest Non-Tender Cardiovascular: Normal Peripheral Pulses, Regular Rate, Rhythm, No Edema Peripheral Pulses: 2+: Radial (L), Radial (R) Extremities: Normal Range of Motion, Normal Capillary Refill Neurological: Alert, Oriented, Normal Cognition, No Motor/Sensory Deficits Psychiatric: Normal Affect, Normal Mood Skin Exam: Warm, Dry, Intact, No Rash, Ecchymosis (Noted to the entire right lower leg, this is below the knee, and extends to above the ankle joint. There is a rather large blister, intact to the lateral portion of her right leg, and one other blister on the back of her leg, that is ruptured, and she states is weeping and is bothersome.) Course - Vital Signs Last Recorded V/S: Last Vital Signs Temp 97.7 F 06/08/21 12:19 Pulse 88 06/08/21 12:19 Resp 18 06/08/21 12:19 BP 142/68 H 06/08/21 12:19 Pulse Ox 100 06/08/21 12:19 - Orders/Labs/Meds Meds: Medications Discontinued Medications Generic Name Dose Route Start Last Admin Trade Name Humberto PRN Reason Stop Dose Admin Hydromorphone HCl 0.5 mg 06/08/21 13:37 06/08/21 13:59 Hydromorphone 0.5 Mg/0.5 Ml Syringe IM 06/08/21 13:38 0.5 mg ONETIME ONE Administration - Re-Assessments/Exams Free Text/Narrative Re-Assessment/Exam: 06/08/21 13:07 Patient presents to the ER to have a blood clot ruled out. We will go ahead and get an ultrasound of the area, and then try to deal with the blister, and then get the leg bandaged up. 06/08/21 13:43 ReSound has been obtained, there are no sign of any blood clots however the calf veins were not visualized. Again patient does take warfarin for atrial fibrillation, but she did miss a few doses the last few days, due to the amount of bleeding she was having in her leg. Patient still having pain in this area so we will go ahead and give her 0.5 mg IM Dilaudid for pain management, and try to debride the blister away as much as possible, if we need to use heme occult dressing to the areas of blistering, we will do as such to provide hemostasis of the wounds. 06/08/21 14:38 I was able to debride away the top portion of the blister, with out much difficulty. A nonstick/Vaseline soaked gauze dressing was applied to the wound for further management, we will go ahead and stick the patient on Omnicef twice daily for the next week or so. Departure - Departure Time of Disposition: 14:39 Disposition: Home, Self-Care 01 Condition: Good Clinical Impression: Leg pain Qualifiers: Laterality: right Qualified Code(s): M79.604 - Pain in right leg Blister of right lower leg Qualifiers: Encounter type: initial encounter Qualified Code(s): S80.821A - Blister (nonthermal), right lower leg, initial encounter - Discharge Information *PRESCRIPTION DRUG MONITORING PROGRAM REVIEWED*: No *COPY OF PRESCRIPTION DRUG MONITORING REPORT IN PATIENT OPAL: No Instructions: Blisters, Adult Referrals: Rachelle Tao PA-C [Primary Care Provider] - Forms: ED Department Discharge Additional Instructions: You were evaluated in the ER today for your right lower leg blister/pain. An ultrasound was obtained at the time of today's exam, and was negative for any blood clots. The blister was debrided away, to hopefully help provide an area for the wound to heal. Please use nonstick gauze, to the wound, over the next few days, you may wash this with warm soapy water, and keep as clean and dry as possible. You have been started on the antibiotic, Omnicef which will be 1 tablet 2 times a day for ongoing management and to hopefully prevent any sort of infectious pr ocess. This medication was electronically prescribed to the [facility] pharmacy located in [facility]. Take all other medications as previously prescribed. If the pain medications you received from your prior ER visit are too strong, or make you nauseous you may take the Zofran that was given to you with the medication, prior to taking the medication and you may also take 1/2 tablet as needed, instead of a full tablet. You may supplement with 500 mg Tylenol every 6 hours as needed for ongoing pain management as well. Do not exceed 4000 mg Tylenol in a 24-hour time span. I would highly recommend you have another provider look at your wound, on Sunday, or Sunday to make sure that things are healing as expected. Do not hesitate to return to the ER at any time if symptoms change or worsen. Sepsis Event Note (ED) - Evaluation Sepsis Screening Result: No Definite Risk - Focused Exam Vital Signs: Vital Signs Temp Pulse Resp BP Pulse Ox 06/08/21 12:19 97.7 F 88 18 142/68 H 100
--- NOTE | 2021-06-08 13:15 | US ---
Right lower extremity deep venous ultrasound: Duplex and color Doppler evaluation was obtained of the right common femoral, proximal greater saphenous, superficial femoral, popliteal, posterior tibial and peroneal veins. Left common femoral vein was also evaluated. Comparison: No prior venous imaging is available. Findings: Right posterior tibial and peroneal veins were not well visualized due to leg size and swelling which was given by technologist's note. Other visualized vein shows normal phasic flow, augmentation and compression. Impression: 1. Calf veins are not visualized as noted above. 2. No findings of deep venous thrombosis is seen within the right lower extremity or within the left common femoral vein. Diagnostic code #2
[2021-06-08] MEDS ORDERED: HYDROmorphone 0.5 MG/0.5 ML Syringe IM ONE (13:37)
== END 2021-06-08 15:23 | disposition home or self-care (01) ==
LOC: JD.ED 11:39
DX: S80.821A Blister (nonthermal), right lower leg, initial encounter (principal); S80.11XA Contusion of right lower leg, initial encounter; J45.909 Unspecified asthma, uncomplicated; K21.9 Gastro-esophageal reflux disease without esophagitis; I48.91 Unspecified atrial fibrillation; E66.9 Obesity, unspecified; Z68.43 Body mass index [BMI] 50.0-59.9, adult; Z79.01 Long term (current) use of anticoagulants; Z79.899 Other long term (current) drug therapy; W18.30XA Fall on same level, unspecified, initial encounter; Y92.096 Garden or yard of other non-institutional residence as the place of occurrence of the external cause
CPT/HCPCS: 93971; 96372; 99283; J1170

== ENCOUNTER 2022-03-21 08:51 | Inpatient (IN) | payer MEDICARE, MEDICAID ==
[2022-03-21] MEDS ORDERED: Levalbuterol HCl 1.25 MG/0.5 ML Neb NEB ONE ×2 (09:20→10:28)
[2022-03-21 10:19] LABS: ESTIMATED GFR 82 mL/min (>60)
[2022-03-21] MEDS ORDERED: Furosemide 40 MG/4 ML VIAL IVPUSH ONE (11:10)
[2022-03-21] MEDS ORDERED: Metoprolol Tartrate 25 MG Tab PO ONE (11:20)
[2022-03-21] MEDS ORDERED: Ondansetron 4 MG/2 ML SDV IV PRN (12:48)
[2022-03-21] MEDS ORDERED: Levalbuterol HCl 1.25 MG/3 ML Neb NEB PRN (12:48)
[2022-03-21] MEDS ORDERED: Acetaminophen 325 MG Tab PO PRN (12:48)
[2022-03-21] MEDS ORDERED: Potassium Chloride 20 MEQ Tab.ER PO ONE (12:55)
[2022-03-21] MEDS ORDERED: Ipratropium 0.02% 0.5 MG/2.5 ML Neb Soln NEB PRN (12:55)
[2022-03-21] MEDS ORDERED: Doxycycline 100 MG in Sodium Chloride 0.9% 100 ML IV SCH (12:56)
[2022-03-21] MEDS ORDERED: traMADol 50 MG Tab PO PRN (13:00)
[2022-03-21] MEDS: Doxycycline 100 MG in Sodium Chloride 0.9% 100 ML IV SCH (14:23)
[2022-03-21] MEDS ORDERED: Sodium Chloride 0.9% 500 ML IV ONE (14:30)
[2022-03-21] MEDS: Levalbuterol HCl 1.25 MG/0.5 ML Neb NEB SCH ×2 (16:36→20:36)
[2022-03-21] MEDS: Ipratropium 0.02% 0.5 MG/2.5 ML Neb Soln NEB SCH ×2 (16:36→20:36)
[2022-03-21] MEDS ORDERED: guaiFENesin/Dextromethorphan 100-10 MG/5 ML Soln 5 ML Cup PO ONE (17:29)
[2022-03-21] MEDS: Cefepime 2 GM in Sodium Chloride 0.9% 50 ML IV SCH (18:06)
[2022-03-21] MEDS: Vancomycin 1 GM, Vancomycin 250 MG in Sodium Chloride 0.9% 250 ML IV SCH (18:18)
[2022-03-21] MEDS ORDERED: Vancomycin 2 GM in Sodium Chloride 0.9% 500 ML IV ONE (19:00)
[2022-03-21] MEDS: Rivaroxaban 10 MG Tab PO SCH (21:00)
[2022-03-21] MEDS: Montelukast 10 MG Tab PO SCH (21:01)
[2022-03-21] MEDS: Metoprolol Tartrate 25 MG Tab PO SCH (21:01)
[2022-03-21] MEDS: guaiFENesin/Dextromethorphan 100-10 MG/5 ML Soln 5 ML Cup PO SCH (21:03)
[2022-03-22] MEDS: Cefepime 2 GM in Sodium Chloride 0.9% 50 ML IV SCH ×3 (02:27→17:50)
[2022-03-22] MEDS: Doxycycline 100 MG in Sodium Chloride 0.9% 100 ML IV SCH (03:03)
[2022-03-22] MEDS: Vancomycin 1 GM, Vancomycin 250 MG in Sodium Chloride 0.9% 250 ML IV SCH ×4 (04:00→18:29)
[2022-03-22] MEDS ORDERED: Furosemide 40 MG/4 ML VIAL IVPUSH SCH (06:00)
[2022-03-22] MEDS: Levalbuterol HCl 1.25 MG/0.5 ML Neb NEB SCH ×4 (06:08→20:07)
[2022-03-22] MEDS: Ipratropium 0.02% 0.5 MG/2.5 ML Neb Soln NEB SCH ×4 (06:08→20:07)
[2022-03-22] MEDS: guaiFENesin/Dextromethorphan 100-10 MG/5 ML Soln 5 ML Cup PO SCH ×3 (08:38→22:06)
[2022-03-22] MEDS: Metoprolol Tartrate 25 MG Tab PO SCH ×2 (08:38→22:01)
[2022-03-22] MEDS: Sertraline 50 MG Tab PO SCH (08:38)
[2022-03-22] MEDS: Diltiazem 180 MG Cap.CD PO SCH (08:38)
[2022-03-22] MEDS: Pantoprazole 40 MG Tab.CR PO SCH (08:39)
[2022-03-22] MEDS: Allopurinol 300 MG Tab PO SCH (08:39)
[2022-03-22] MEDS: Potassium Chloride 20 MEQ Tab.ER PO SCH ×2 (08:43→22:00)
[2022-03-22] MEDS ORDERED: Potassium Chloride 20 MEQ Tab.ER PO SCH ×2 (09:00)
[2022-03-22] MEDS: Montelukast 10 MG Tab PO SCH (22:00)
[2022-03-22] MEDS: Rivaroxaban 10 MG Tab PO SCH (22:04)
[2022-03-23] MEDS: Cefepime 2 GM in Sodium Chloride 0.9% 50 ML IV SCH ×4 (00:23→16:39)
[2022-03-23] MEDS: Vancomycin 1 GM, Vancomycin 250 MG in Sodium Chloride 0.9% 250 ML IV SCH (02:17)
[2022-03-23] MEDS: Ipratropium 0.02% 0.5 MG/2.5 ML Neb Soln NEB SCH ×4 (06:23→20:37)
[2022-03-23] MEDS: Levalbuterol HCl 1.25 MG/0.5 ML Neb NEB SCH ×4 (06:23→20:37)
[2022-03-23] MEDS: guaiFENesin/Dextromethorphan 100-10 MG/5 ML Soln 5 ML Cup PO SCH ×3 (06:27→20:49)
[2022-03-23] MEDS: Potassium Chloride 20 MEQ Tab.ER PO SCH ×2 (08:05→20:46)
[2022-03-23] MEDS: Pantoprazole 40 MG Tab.CR PO SCH (08:05)
[2022-03-23] MEDS: Diltiazem 180 MG Cap.CD PO SCH (08:05)
[2022-03-23] MEDS: Sertraline 50 MG Tab PO SCH (08:05)
[2022-03-23] MEDS: Metoprolol Tartrate 25 MG Tab PO SCH ×2 (08:05→20:47)
[2022-03-23] MEDS: Allopurinol 300 MG Tab PO SCH (08:05)
[2022-03-23] MEDS: Furosemide 20 MG Tab PO SCH (11:21)
[2022-03-23] MEDS ORDERED: Magnesium Hydroxide 400 MG/5 ML Susp 30 ML Cup PO ONE (15:00)
[2022-03-23] MEDS: Montelukast 10 MG Tab PO SCH (20:45)
[2022-03-23] MEDS: Rivaroxaban 10 MG Tab PO SCH (20:48)
[2022-03-24] MEDS: Cefepime 2 GM in Sodium Chloride 0.9% 50 ML IV SCH ×2 (00:23→10:42)
[2022-03-24] MEDS: Levalbuterol HCl 1.25 MG/0.5 ML Neb NEB SCH ×2 (06:19→10:15)
[2022-03-24] MEDS: Ipratropium 0.02% 0.5 MG/2.5 ML Neb Soln NEB SCH ×2 (06:19→10:15)
[2022-03-24] MEDS: guaiFENesin/Dextromethorphan 100-10 MG/5 ML Soln 5 ML Cup PO SCH (06:21)
[2022-03-24] MEDS: Metoprolol Tartrate 25 MG Tab PO SCH (10:39)
[2022-03-24] MEDS: Pantoprazole 40 MG Tab.CR PO SCH (10:39)
[2022-03-24] MEDS: Diltiazem 180 MG Cap.CD PO SCH (10:41)
[2022-03-24] MEDS: Allopurinol 300 MG Tab PO SCH (10:41)
[2022-03-24] MEDS: Potassium Chloride 20 MEQ Tab.ER PO SCH (10:41)
[2022-03-24] MEDS: Sertraline 50 MG Tab PO SCH (10:41)
[2022-03-24] MEDS: Furosemide 20 MG Tab PO SCH (10:42)
[2022-03-24 12:51] VITALS: BP 141/63; PULSE 93
== END 2022-03-24 13:30 | disposition home or self-care (01) | DRG 871 ==
LOC: JD.ED 08:51 → JD.MS 11:37
PROVIDERS: ADMIT Internal Medicine; ATTEND Internal Medicine
DX: J96.01 Acute respiratory failure with hypoxia (principal); A41.9 Sepsis, unspecified organism; I48.91 Unspecified atrial fibrillation; J18.9 Pneumonia, unspecified organism; I48.20 Chronic atrial fibrillation, unspecified; Z68.42 Body mass index [BMI] 45.0-49.9, adult; I50.9 Heart failure, unspecified; R65.20 Severe sepsis without septic shock; D64.9 Anemia, unspecified; Z20.822 Contact with and (suspected) exposure to COVID-19; J45.909 Unspecified asthma, uncomplicated; E66.01 Morbid (severe) obesity due to excess calories; K21.9 Gastro-esophageal reflux disease without esophagitis; Z79.01 Long term (current) use of anticoagulants; Z86.39 Personal history of other endocrine, nutritional and metabolic disease; Z79.899 Other long term (current) drug therapy
CPT/HCPCS: 36415; 71045; 71045-26; 80053; 80202; 83540; 83605; 83735; 83880; 84145; 84466; 84484; 85025; 85610; 86140; 86738; 87040; 93005; 93010; 93306; 94640; 94667; 94668; 94761; 97110-GP; 97116-GP; 97162-GP; 99223; 99233; 99239; 99284; 99285-25; A9270-GY; J0692; J1940; J3370; J3490; J7030; J7040; J7050; U0002

== ENCOUNTER 2022-08-09 06:04 | Day surgery (SDC) | payer MEDICARE, MEDICAID ==
[~2022-08-09 06:04] MED LIST changes: +Acetaminophen 325 MG Tab PO SCH; +Lactated Ringers 1,000 ML IV SCH; -Lidocaine 1% PF 2 ML SDV ONE; -Midazolam 1 MG/ML 2 ML SDV ONE; +Morphine 8 MG, EPINEPHrine 0.3 MG, Cefuroxime 750 MG, Ketorolac 30 MG, Sodium Chloride ... PRN; +Pregabalin 25 MG Cap PO SCH; -Propofol 200 MG/20 ML SDV ONE; +Sodium Chloride 0.9% 10 ML Syringe FLUSH SCH; +Tranexamic Acid 1,000 MG/10 ML Vial ONE; +Vancomycin 1 GM SDV ONE; -ceFAZolin 1 GM Vial ONE; -fentaNYL 100 MCG/2 ML SDV ONE; +oxyCODONE ER 10 MG TAB.ER PO SCH
[2022-08-09] MEDS ORDERED: Ondansetron 4 MG/2 ML SDV ONE ×2 (06:30→09:19)
[2022-08-09] MEDS ORDERED: Midazolam 1 MG/ML 2 ML SDV ONE (06:30)
[2022-08-09] MEDS ORDERED: Propofol 200 MG/20 ML SDV ONE ×3 (06:30→09:03)
[2022-08-09] MEDS ORDERED: fentaNYL 100 MCG/2 ML SDV ONE ×2 (06:30→09:20)
[2022-08-09] MEDS ORDERED: Ketamine 500 mg/10 ML MDV ONE (06:32)
[2022-08-09] MEDS ORDERED: Phenylephrine HCl In 0.9% NaCl 1 MG/10 ML Vial ONE (07:30)
[2022-08-09] MEDS ORDERED: ceFAZolin 2 GM Vial ONE ×2 (07:34→07:35)
[2022-08-09] MEDS ORDERED: Lactated Ringers 1,000 ML ONE ×2 (07:50→09:07)
[2022-08-09] MEDS ORDERED: fentaNYL 100 MCG/2 ML SDV IVPUSH PRN (08:33)
[2022-08-09] MEDS ORDERED: Ondansetron 4 MG/2 ML SDV IVPUSH PRN (08:33)
[2022-08-09] MEDS ORDERED: HYDROmorphone 0.5 MG/0.5 ML Syringe IVPUSH PRN (08:33)
[2022-08-09] MEDS ORDERED: oxyCODONE 5 MG Tab PO PRN (11:27)
[2022-08-09 14:32] VITALS: BP 108/48; PULSE 66
== END 2022-08-09 14:22 | disposition home or self-care (01) ==
LOC: JD.SDS 06:04
PROVIDERS: ATTEND Orthopaedic Surgery
DX: M16.12 Unilateral primary osteoarthritis, left hip (principal); J45.909 Unspecified asthma, uncomplicated; G47.33 Obstructive sleep apnea (adult) (pediatric); K21.9 Gastro-esophageal reflux disease without esophagitis; D64.9 Anemia, unspecified; I48.91 Unspecified atrial fibrillation; E66.01 Morbid (severe) obesity due to excess calories; Z79.899 Other long term (current) drug therapy; Z68.42 Body mass index [BMI] 45.0-49.9, adult; Z86.16 Personal history of COVID-19; Z90.49 Acquired absence of other specified parts of digestive tract
CPT/HCPCS: 0055T; 27130; 36415; 73501; 85610; 85730; 86850; 86900; 86901; 97110; 97116; 97161; A9270; C1713; C1776; J0171; J0690; J0697; J1170; J1885; J2250; J2270; J2405; J2704; J3010; J3370; J3490; J7120; 01214

== ENCOUNTER 2023-04-16 04:30 | Inpatient (IN) | payer MEDICARE, MEDICAID ==
[2023-04-16 05:06] LABS: BASOPHILS ABSOLUTE AUTO 0.01 K/mm3 (0.01-0.08); BASOPHILS PERCENT AUTO 0.1 % (0.1-1.2); EOSINOPHILS ABSOLUTE AUTO 0.02 K/mm3 (0.04-0.36); EOSINOPHILS PERCENT AUTO 0.2 (0.7-5.8); HEMATOCRIT 33.5 % (34.1-44.9); HEMOGLOBIN 9.9 gm/dl (11.2-15.7); IMMATURE GRAN ABSOLUTE AUTO 0.04 K/mm3 (0.00-0.10); IMMATURE GRAN PERCENT AUTO 0.3 % (<=1.0); LYMPHOCYTES ABSOLUTE AUTO 0.16 K/mm3 (1.18-3.74); LYMPHOCYTES PERCENT AUTO 1.3 % (19.3-51.7); MEAN CORPUSCULAR HEMOGLOBIN 26.2 pg (25.6-32.2); MEAN CORPUSCULAR HGB CONC 29.6 g/dl (32.2-35.5); MEAN CORPUSCULAR VOLUME 88.6 fl (79.4-94.8); MEAN PLATELET VOLUME 9.5 fl (9.4-12.3); MONOCYTES ABSOLUTE AUTO 0.46 K/mm3 (0.24-0.36); MONOCYTES PERCENT AUTO 3.8 % (4.7-12.5); NEUTROPHILS ABSOLUTE AUTO 11.27 K/mm3 (1.56-6.13); NEUTROPHILS PERCENT AUTO 94.3 % (34.0-71.1); PLATELET COUNT,PLT 187 K/mm3 (182-369); RED BLOOD CELL COUNT 3.78 M/mm3 (3.98-5.22); WHITE BLOOD CELL COUNT,WBC 11.96 K/mm3 (3.98-10.04)
[2023-04-16 05:27] LABS: A/G RATIO 1.2 (1-2); ALANINE AMINOTRANSFERASE,ALT 22 U/L (14-59); ALBUMIN 3.3 g/dl (3.4-5.0); ALKALINE PHOSPHATASE 92 U/L (46-116); ANION GAP 12.3 (5-15); ASPARTATE AMNIOTRANSFERASE,AST 22 U/L (15-37); BILIRUBIN TOTAL 1.1 mg/dL (0.2-1.0); BLOOD UREA NITROGEN,BUN 12 mg/dL (7-18); BUN/CREATININE RATIO 13.3 (14-18); CALCIUM 8.3 mg/dL (8.5-10.1); CARBON DIOXIDE,CO2 25 mEq/L (21-32); CHLORIDE,CL 107 mEq/L (98-107); CREATININE 0.9 mg/dL (0.55-1.02); ESTIMATED GFR 71 mL/min (>60); GLUCOSE RANDOM 83 mg/dL (70-99); POTASSIUM,K 3.3 mEq/L (3.5-5.1); SODIUM,NA 141 mEq/L (136-145)
[2023-04-16] MEDS ORDERED: Sodium Chloride 0.9% 3,000 ML IV ONE (05:39)
[2023-04-16] MEDS ORDERED: SODIUM CHLORIDE 0.9% IV ONE (05:41)
[2023-04-16 06:13] LABS: APPEARANCE,URINE CLOUDY (Clear); BILIRUBIN,URINE 1+ (Negative); COLOR,URINE DARK YELLOW (Yellow); GLUCOSE,URINE NEGATIVE (Negative); KETONES,URINE NEGATIVE (Negative); LEUKOCYTE ESTERASE,URINE 1+ (Negative); NITRITE,URINE NEGATIVE (Negative); OCCULT BLOOD,URINE 3+ (Negative); PROTEIN,URINE 2+ (Negative)
[2023-04-16 06:48] LABS: BACTERIA,URINE MODERATE /hpf (FEW); MUCUS,URINE NOT SEEN /hpf (FEW); RBC,URINE >100 /hpf (0-5)
[2023-04-16 06:59] LABS: SLIDE REVIEW ABNORMAL SMEAR
[2023-04-16] MEDS ORDERED: cefTRIAXone 1 GM in Sodium Chloride 0.9% 100 ML IV ONE (07:15)
[2023-04-16] MEDS ORDERED: Ondansetron 4 MG/2 ML SDV IV PRN (09:20)
[2023-04-16] MEDS ORDERED: Rivaroxaban 10 MG Tab PO SCH (11:00)
[2023-04-16] MEDS ORDERED: Levalbuterol HCl 1.25 MG/3 ML Neb NEB PRN (12:08)
[2023-04-16] MEDS ORDERED: Sodium Chloride 0.9% 500 ML IV ONE (14:04)
[2023-04-16] MEDS: Acetaminophen 325 MG Tab PO PRN (14:28)
[2023-04-16] MEDS: Metoprolol Tartrate 25 MG Tab PO SCH ×2 (14:30→21:01)
[2023-04-16] MEDS: Diltiazem 180 MG Cap.CD PO SCH (14:32)
[2023-04-16] MEDS: Rivaroxaban 10 MG Tab PO SCH (21:00)
[2023-04-16] MEDS: Montelukast 10 MG Tab PO SCH (21:00)
[2023-04-16] MEDS ORDERED: Metoprolol Tartrate 25 MG Tab PO SCH (21:00)
[2023-04-16] MEDS: Famotidine 20 MG Tab PO SCH (21:00)
[2023-04-17 05:25] LABS: HEMATOCRIT 31.6 % (34.1-44.9); HEMOGLOBIN 9.3 gm/dl (11.2-15.7); MEAN CORPUSCULAR HEMOGLOBIN 26.1 pg (25.6-32.2); MEAN CORPUSCULAR HGB CONC 29.4 g/dl (32.2-35.5); MEAN CORPUSCULAR VOLUME 88.8 fl (79.4-94.8); MEAN PLATELET VOLUME 9.7 fl (9.4-12.3); PLATELET COUNT,PLT 160 K/mm3 (182-369); RED BLOOD CELL COUNT 3.56 M/mm3 (3.98-5.22); WHITE BLOOD CELL COUNT,WBC 10.76 K/mm3 (3.98-10.04)
[2023-04-17 05:54] LABS: A/G RATIO 1.1 (1-2); ALBUMIN 2.9 g/dl (3.4-5.0); ANION GAP 9.3 (5-15); BILIRUBIN TOTAL 1.2 mg/dL (0.2-1.0); BUN/CREATININE RATIO 18.9 (14-18); CALCIUM 7.9 mg/dL (8.5-10.1); CREATININE 0.9 mg/dL (0.55-1.02); EST CRCL DRUG DOSING (CG) 55.33 mL/min; POTASSIUM,K 3.3 mEq/L (3.5-5.1); PROTEIN TOTAL,TP 5.5 g/dl (6.4-8.2)
[2023-04-17] MEDS: cefTRIAXone 2 GM in Sodium Chloride 0.9% 100 ML IV SCH (08:08)
[2023-04-17] MEDS: Potassium Chloride 20 MEQ Tab.ER PO SCH (08:20)
[2023-04-17] MEDS: Pantoprazole 40 MG Tab.CR PO SCH (08:21)
[2023-04-17] MEDS: Allopurinol 300 MG Tab PO SCH (08:21)
[2023-04-17] MEDS: Acetaminophen 325 MG Tab PO PRN (08:21)
[2023-04-17] MEDS: Furosemide 40 MG Tab PO SCH (08:22)
[2023-04-17] MEDS: Metoprolol Tartrate 25 MG Tab PO SCH ×3 (08:30→20:09)
[2023-04-17] MEDS: Diltiazem 180 MG Cap.CD PO SCH (08:30)
[2023-04-17 08:51] LABS: IRON,FE 13 ug/dL (50-170); PERCENT FE SATURATION 6 % (20-55); TOTAL IRON BINDING CAPACITY 203 ug/dL (100-400); TRANSFERRIN 162 mg/dL (202-364)
[2023-04-17] MEDS ORDERED: Potassium Chloride 20 MEQ Tab.ER PO SCH (09:00)
[2023-04-17] MEDS ORDERED: Diltiazem 180 MG Cap.CD PO SCH (09:00)
[2023-04-17] MEDS ORDERED: Sertraline 50 MG Tab PO SCH (09:00)
[2023-04-17] MEDS: Famotidine 20 MG Tab PO SCH ×2 (19:53→20:09)
[2023-04-17] MEDS: Montelukast 10 MG Tab PO SCH ×2 (19:54→20:09)
[2023-04-17] MEDS: Rivaroxaban 10 MG Tab PO SCH ×2 (19:54→20:09)
[2023-04-18 06:22] LABS: HEMATOCRIT 31.8 % (34.1-44.9); HEMOGLOBIN 9.4 gm/dl (11.2-15.7); MEAN CORPUSCULAR HEMOGLOBIN 25.8 pg (25.6-32.2); MEAN CORPUSCULAR HGB CONC 29.6 g/dl (32.2-35.5); MEAN CORPUSCULAR VOLUME 87.4 fl (79.4-94.8); MEAN PLATELET VOLUME 11.9 fl (9.4-12.3); PLATELET COUNT,PLT 184 K/mm3 (182-369); RED BLOOD CELL COUNT 3.64 M/mm3 (3.98-5.22); WHITE BLOOD CELL COUNT,WBC 8.75 K/mm3 (3.98-10.04)
[2023-04-18 06:44] LABS: ALBUMIN 2.9 g/dl (3.4-5.0); ANION GAP 8.7 (5-15); BILIRUBIN TOTAL 0.8 mg/dL (0.2-1.0); BUN/CREATININE RATIO 18.8 (14-18); CREATININE 0.8 mg/dL (0.55-1.02); EST CRCL DRUG DOSING (CG) 62.24 mL/min; MAGNESIUM 2.1 mg/dL (1.8-2.4); POTASSIUM,K 3.7 mEq/L (3.5-5.1); PROTEIN TOTAL,TP 5.7 g/dl (6.4-8.2)
[2023-04-18] MEDS: Potassium Chloride 20 MEQ Tab.ER PO SCH (08:35)
[2023-04-18] MEDS: cefTRIAXone 2 GM in Sodium Chloride 0.9% 100 ML IV SCH (08:35)
[2023-04-18] MEDS: Pantoprazole 40 MG Tab.CR PO SCH (08:40)
[2023-04-18] MEDS: Furosemide 40 MG Tab PO SCH (08:40)
[2023-04-18] MEDS: Allopurinol 300 MG Tab PO SCH (08:40)
[2023-04-18] MEDS: Metoprolol Tartrate 25 MG Tab PO SCH (08:40)
[2023-04-18] MEDS: Diltiazem 180 MG Cap.CD PO SCH (08:53)
[2023-04-18 14:33] VITALS: BP 135/72; PULSE 77
[2023-04-18] MEDS ORDERED: Sertraline 50 MG Tab PO SCH (21:00)
== END 2023-04-18 15:00 | disposition home or self-care (01) | DRG 872 ==
LOC: JD.ED 04:30 → JD.ICU 08:52
PROVIDERS: ADMIT Internal Medicine; ATTEND Internal Medicine
DX: A41.59 Other Gram-negative sepsis (principal); I50.32 Chronic diastolic (congestive) heart failure; N10 Acute pyelonephritis; N30.01 Acute cystitis with hematuria; Z68.43 Body mass index [BMI] 50.0-59.9, adult; N18.32 Chronic kidney disease, stage 3b; G47.33 Obstructive sleep apnea (adult) (pediatric); D50.9 Iron deficiency anemia, unspecified; I48.91 Unspecified atrial fibrillation; J44.9 Chronic obstructive pulmonary disease, unspecified; I48.0 Paroxysmal atrial fibrillation; H54.7 Unspecified visual loss; K21.9 Gastro-esophageal reflux disease without esophagitis; J45.909 Unspecified asthma, uncomplicated; E66.9 Obesity, unspecified; Z79.899 Other long term (current) drug therapy; Z86.16 Personal history of COVID-19; Z87.442 Personal history of urinary calculi
CPT/HCPCS: 36415; 71045; 71045-26; 80053; 81001; 82728; 83540; 83605; 83735; 84466; 85025; 85027; 87040; 87077; 87086; 87088; 87154; 87186; 94660; 94760; 94761; 96361; 96365; 97110-GP; 97162-GP; 97165-GO; 99285; 99285-25; A9270-GY; J0696; J2405; J3490; J7030

== ENCOUNTER 2023-07-05 20:53 | Emergency (ER) | payer MEDICARE, MEDICAID ==
[2023-07-05 21:44] LABS: BASOPHILS ABSOLUTE AUTO 0.1 K/mm3 (0.0-0.2); BASOPHILS PERCENT AUTO 0.5 % (0.0-1.0); EOSINOPHILS ABSOLUTE AUTO 0.4 K/mm3 (0.0-0.4); EOSINOPHILS PERCENT AUTO 3.7 % (0.0-6.0); HEMATOCRIT 20.9 % (37.0-47.0); IMMATURE GRAN ABSOLUTE AUTO 0.06 K/mm3 (0.00-0.05); IMMATURE GRAN PERCENT AUTO 0.6 % (0.0-0.4); LYMPHOCYTES ABSOLUTE AUTO 0.8 K/mm3 (1.0-4.8); LYMPHOCYTES PERCENT AUTO 7.4 % (24.0-44.0); MEAN CORPUSCULAR HEMOGLOBIN 29.1 pg (28.0-32.0); MEAN CORPUSCULAR HGB CONC 29.7 g/dl (32.0-36.0); MEAN CORPUSCULAR VOLUME 98.1 fl (83.0-99.0); MEAN PLATELET VOLUME 9.6 fl (9.4-12.3); MONOCYTES ABSOLUTE AUTO 0.6 K/mm3 (0.0-0.8); MONOCYTES PERCENT AUTO 5.5 % (0.0-8.0); NEUTROPHILS ABSOLUTE AUTO 8.8 K/mm3 (1.8-7.7); NEUTROPHILS PERCENT AUTO 82.3 % (41.0-71.0); PLATELET COUNT,PLT 231 K/mm3 (150-400); RED BLOOD CELL COUNT 2.13 M/mm3 (4.10-5.30); WHITE BLOOD CELL COUNT,WBC 10.73 K/mm3 (3.9-11.3)
[2023-07-05 21:55] LABS: A/G RATIO 1.3 (1-2); ALBUMIN 3.4 g/dl (3.4-5.0); ANION GAP 16.8 (5-15); BILIRUBIN TOTAL 0.4 mg/dL (0.2-1.0); CALCIUM 8.8 mg/dL (8.5-10.1); CREATININE 1.5 mg/dL (0.55-1.02); EST CRCL DRUG DOSING (CG) 33.2 mL/min; MAGNESIUM 2.2 mg/dL (1.8-2.4); POTASSIUM,K 3.8 mEq/L (3.5-5.1); PROTEIN TOTAL,TP 6.1 g/dl (6.4-8.2); TSH 3.561 uIU/mL (0.358-3.74)
[2023-07-05 21:59] LABS: HEMOGLOBIN 6.2 gm/dl (12.0-16.0)
[2023-07-05] MEDS ORDERED: HYDROmorphone 0.5 MG/0.5 ML Syringe IM ONE (23:00)
[2023-07-05] MEDS ORDERED: Naloxone 0.4 MG/ML SDV IVPUSH PRN ×3 (23:00→23:16)
[2023-07-05] MEDS ORDERED: HYDROmorphone 0.5 MG/0.5 ML Syringe IVPUSH ONE ×2 (23:16)
[2023-07-05] MEDS ORDERED: Sodium Chloride 0.9% 500 ML ONE (23:51)
[2023-07-06] MEDS ORDERED: Sodium Chloride 0.9% 500 ML IV STA (00:14)
[2023-07-06 04:46] LABS: BASOPHILS ABSOLUTE AUTO 0.1 K/mm3 (0.0-0.2); BASOPHILS PERCENT AUTO 0.6 % (0.0-1.0); EOSINOPHILS ABSOLUTE AUTO 0.4 K/mm3 (0.0-0.4); EOSINOPHILS PERCENT AUTO 3.7 % (0.0-6.0); HEMATOCRIT 26.1 % (37.0-47.0); IMMATURE GRAN ABSOLUTE AUTO 0.05 K/mm3 (0.00-0.05); IMMATURE GRAN PERCENT AUTO 0.5 % (0.0-0.4); LYMPHOCYTES PERCENT AUTO 10.4 % (24.0-44.0); MEAN CORPUSCULAR HEMOGLOBIN 29.9 pg (28.0-32.0); MEAN CORPUSCULAR VOLUME 96.3 fl (83.0-99.0); MEAN PLATELET VOLUME 9.7 fl (9.4-12.3); MONOCYTES ABSOLUTE AUTO 0.7 K/mm3 (0.0-0.8); NEUTROPHILS ABSOLUTE AUTO 7.6 K/mm3 (1.8-7.7); NEUTROPHILS PERCENT AUTO 77.8 % (41.0-71.0); PLATELET COUNT,PLT 215 K/mm3 (150-400); RED BLOOD CELL COUNT 2.71 M/mm3 (4.10-5.30)
[2023-07-06 04:47] LABS: HEMOGLOBIN 8.1 gm/dl (12.0-16.0)
[2023-07-06 04:48] LABS: APPEARANCE,URINE CLEAR (Clear); BILIRUBIN,URINE NEGATIVE (Negative); COLOR,URINE YELLOW (Yellow); GLUCOSE,URINE NEGATIVE (Negative); KETONES,URINE NEGATIVE (Negative); LEUKOCYTE ESTERASE,URINE 1+ (Negative); NITRITE,URINE NEGATIVE (Negative); OCCULT BLOOD,URINE NEGATIVE (Negative); PROTEIN,URINE NEGATIVE (Negative); UROBILINOGEN,URINE 0.2 (0.2-1.0)
[2023-07-06 05:04] LABS: BACTERIA,URINE FEW /hpf (FEW); EPITHELIAL CELLS,URINE 0-5 /hpf (0-5); HYALINE CASTS,URINE 0-5 /lpf (0-5); RBC,URINE 0-5 /hpf (0-5); WBC CLUMPS,URINE FEW /hpf (NOT SEEN)
[2023-07-06 05:05] LABS: MUCUS,URINE FEW /hpf (FEW); YEAST,URINE RARE (NOT SEEN)
[2023-07-06 06:18] VITALS: BP 112/56; PULSE 72
== END 2023-07-06 06:18 | disposition home or self-care (01) ==
LOC: JD.ED 20:53
DX: D64.9 Anemia, unspecified (principal); E66.9 Obesity, unspecified; Z68.43 Body mass index [BMI] 50.0-59.9, adult; Z79.899 Other long term (current) drug therapy; Z86.16 Personal history of COVID-19
CPT/HCPCS: 36415; 36430; 74176; 80053; 81001; 83540; 83735; 84443; 85025; 86850; 86900; 86901; 86922; 87086; 96374; 99284; J1170; J7030; P9016; 730302650; 73030-50; 80061; 82306; 82728; 84466; 84550

== ENCOUNTER 2023-09-12 21:34 | Emergency (ER) | payer MEDICARE, MEDICAID ==
[2023-09-12] MEDS ORDERED: Sodium Chloride 0.9% 10 ML Syringe FLUSH PRN (21:48)
[2023-09-12 22:00] LABS: BASOPHILS ABSOLUTE AUTO 0.1 K/mm3 (0.0-0.2); BASOPHILS PERCENT AUTO 0.6 % (0.0-1.0); EOSINOPHILS ABSOLUTE AUTO 0.3 K/mm3 (0.0-0.4); EOSINOPHILS PERCENT AUTO 2.9 % (0.0-6.0); HEMATOCRIT 31.8 % (37.0-47.0); HEMOGLOBIN 10.3 gm/dl (12.0-16.0); IMMATURE GRAN ABSOLUTE AUTO 0.05 K/mm3 (0.00-0.05); IMMATURE GRAN PERCENT AUTO 0.5 % (0.0-0.4); LYMPHOCYTES ABSOLUTE AUTO 0.9 K/mm3 (1.0-4.8); LYMPHOCYTES PERCENT AUTO 8.6 % (24.0-44.0); MEAN CORPUSCULAR HGB CONC 32.4 g/dl (32.0-36.0); MEAN CORPUSCULAR VOLUME 89.6 fl (83.0-99.0); MEAN PLATELET VOLUME 8.9 fl (9.4-12.3); MONOCYTES ABSOLUTE AUTO 0.7 K/mm3 (0.0-0.8); MONOCYTES PERCENT AUTO 7.4 % (0.0-8.0); PLATELET COUNT,PLT 212 K/mm3 (150-400); RED BLOOD CELL COUNT 3.55 M/mm3 (4.10-5.30); WHITE BLOOD CELL COUNT,WBC 10.04 K/mm3 (3.9-11.3)
[2023-09-12 22:23] LABS: A/G RATIO 1.1 (1-2); ALBUMIN 3.5 g/dl (3.4-5.0); ANION GAP 14.6 (5-15); BILIRUBIN TOTAL 0.4 mg/dL (0.2-1.0); BUN/CREATININE RATIO 19.3 (14-18); CALCIUM 9.3 mg/dL (8.5-10.1); CREATININE 1.5 mg/dL (0.55-1.02); EST CRCL DRUG DOSING (CG) 34.54 mL/min; MAGNESIUM 1.8 mg/dL (1.8-2.4); POTASSIUM,K 3.6 mEq/L (3.5-5.1); PROTEIN TOTAL,TP 6.7 g/dl (6.4-8.2)
[2023-09-12] MEDS ORDERED: Iopamidol 612 MG/ML 100 ML Bottle IVPUSH ONE (22:33)
[2023-09-13 00:35] VITALS: BP 128/59; PULSE 87
== END 2023-09-13 00:34 | disposition home or self-care (01) ==
LOC: JD.ED 21:34
DX: S00.83XA Contusion of other part of head, initial encounter (principal); S30.1XXA Contusion of abdominal wall, initial encounter; S80.02XA Contusion of left knee, initial encounter; J45.909 Unspecified asthma, uncomplicated; K21.9 Gastro-esophageal reflux disease without esophagitis; W18.30XA Fall on same level, unspecified, initial encounter; Z86.16 Personal history of COVID-19; E66.9 Obesity, unspecified; Z68.42 Body mass index [BMI] 45.0-49.9, adult; Z79.899 Other long term (current) drug therapy
CPT/HCPCS: 36415; 70450; 70486; 73562; 74160; 80053; 83735; 85025; 99284; J3490; Q9967

== ENCOUNTER 2023-09-22 18:12 | Emergency (ER) | payer MEDICARE, MEDICAID ==
[2023-09-22 19:16] LABS: BASOPHILS ABSOLUTE AUTO 0.1 K/mm3 (0.0-0.2); BASOPHILS PERCENT AUTO 0.6 % (0.0-1.0); EOSINOPHILS ABSOLUTE AUTO 0.2 K/mm3 (0.0-0.4); EOSINOPHILS PERCENT AUTO 2.5 % (0.0-6.0); HEMATOCRIT 29.5 % (37.0-47.0); HEMOGLOBIN 9.6 gm/dl (12.0-16.0); IMMATURE GRAN ABSOLUTE AUTO 0.02 K/mm3 (0.00-0.05); IMMATURE GRAN PERCENT AUTO 0.3 % (0.0-0.4); LYMPHOCYTES ABSOLUTE AUTO 0.9 K/mm3 (1.0-4.8); LYMPHOCYTES PERCENT AUTO 11.6 % (24.0-44.0); MEAN CORPUSCULAR HEMOGLOBIN 28.3 pg (28.0-32.0); MEAN CORPUSCULAR HGB CONC 32.5 g/dl (32.0-36.0); MEAN PLATELET VOLUME 8.7 fl (9.4-12.3); MONOCYTES ABSOLUTE AUTO 0.8 K/mm3 (0.0-0.8); MONOCYTES PERCENT AUTO 10.2 % (0.0-8.0); NEUTROPHILS ABSOLUTE AUTO 5.9 K/mm3 (1.8-7.7); NEUTROPHILS PERCENT AUTO 74.8 % (41.0-71.0); PLATELET COUNT,PLT 227 K/mm3 (150-400); RED BLOOD CELL COUNT 3.39 M/mm3 (4.10-5.30); WHITE BLOOD CELL COUNT,WBC 7.92 K/mm3 (3.9-11.3)
[2023-09-22 19:30] LABS: APPEARANCE,URINE CLEAR (Clear); BILIRUBIN,URINE NEGATIVE (Negative); COLOR,URINE YELLOW (Yellow); GLUCOSE,URINE NEGATIVE (Negative); KETONES,URINE NEGATIVE (Negative); LEUKOCYTE ESTERASE,URINE NEGATIVE (Negative); NITRITE,URINE NEGATIVE (Negative); OCCULT BLOOD,URINE TRACE-LYSED (Negative); PROTEIN,URINE NEGATIVE (Negative); UROBILINOGEN,URINE 0.2 (0.2-1.0)
[2023-09-22 19:34] VITALS: BP 133/80; PULSE 80
[2023-09-22 19:37] LABS: A/G RATIO 1.1 (1-2); ALBUMIN 3.3 g/dl (3.4-5.0); ANION GAP 11.7 (5-15); BILIRUBIN TOTAL 0.5 mg/dL (0.2-1.0); C-REACTIVE PROTEIN 1.6 mg/dL (<1.0); CREATININE 1.3 mg/dL (0.55-1.02); EST CRCL DRUG DOSING (CG) 39.85 mL/min; POTASSIUM,K 3.7 mEq/L (3.5-5.1); PROTEIN TOTAL,TP 6.4 g/dl (6.4-8.2)
[2023-09-22 19:43] LABS: BACTERIA,URINE RARE /hpf (FEW); MUCUS,URINE NOT SEEN /hpf (FEW); RBC,URINE 0-5 /hpf (0-5); SQUAMOUS EPITHELIAL CELLS,UR 0-5 /hpf (0-5); WBC,URINE 0-5 /hpf (0-5)
[2023-09-22 19:59] LABS: CORONAVIRUS COVID-19 NAA NEGATIVE (NEGATIVE); INFLUENZA A NAA NEGATIVE (NEGATIVE); RESPIRATORY SYNCYTIAL VIR NAA NEGATIVE (NEGATIVE)
== END 2023-09-22 20:36 | disposition home or self-care (01) ==
LOC: JD.ED 18:12
DX: S80.02XD Contusion of left knee, subsequent encounter (principal); I48.91 Unspecified atrial fibrillation; K21.9 Gastro-esophageal reflux disease without esophagitis; Z20.822 Contact with and (suspected) exposure to COVID-19; E66.9 Obesity, unspecified; Z90.49 Acquired absence of other specified parts of digestive tract; Z79.899 Other long term (current) drug therapy; Z68.42 Body mass index [BMI] 45.0-49.9, adult; W19.XXXD Unspecified fall, subsequent encounter
CPT/HCPCS: 0241U; 36415; 80053; 81001; 85025; 85652; 86140; 99283

== ENCOUNTER 2024-03-18 13:10 | Inpatient (IN) | payer MEDICARE ==
[2024-03-18] MEDS: Metoclopramide 10 MG/2 ML SDV IVPUSH ONE (13:43)
[2024-03-18] MEDS: diphenhydrAMINE 50 MG/ML SDV IVPUSH ONE (13:44)
[2024-03-18] MEDS: HYDROmorphone 1 MG/ML Syringe IVPUSH ONE ×3 (13:46→16:12)
[2024-03-18] MEDS: LORazepam 2 MG/ML SDV IVPUSH ONE (13:52)
[2024-03-18] MEDS: Sodium Chloride 0.9% 10 ML Syringe FLUSH PRN (13:56)
[2024-03-18] MEDS ORDERED: Acetaminophen 325 MG Tab PO PRN (18:31)
[2024-03-18 19:10] LABS: BASOPHILS ABSOLUTE AUTO 0.1 K/mm3 (0.0-0.2); BASOPHILS PERCENT AUTO 0.4 % (0.0-1.0); EOSINOPHILS PERCENT AUTO 0.2 % (0.0-6.0); HEMATOCRIT 23.9 % (37.0-47.0); IMMATURE GRAN ABSOLUTE AUTO 0.07 K/mm3 (0.00-0.05); IMMATURE GRAN PERCENT AUTO 0.5 % (0.0-0.4); LYMPHOCYTES ABSOLUTE AUTO 0.6 K/mm3 (1.0-4.8); LYMPHOCYTES PERCENT AUTO 4.4 % (24.0-44.0); MEAN CORPUSCULAR HEMOGLOBIN 24.1 pg (28.0-32.0); MEAN CORPUSCULAR HGB CONC 29.7 g/dl (32.0-36.0); MEAN PLATELET VOLUME 9.9 fl (9.4-12.3); MONOCYTES PERCENT AUTO 7.1 % (0.0-8.0); NEUTROPHILS ABSOLUTE AUTO 12.1 K/mm3 (1.8-7.7); NEUTROPHILS PERCENT AUTO 87.4 % (41.0-71.0); PLATELET COUNT,PLT 193 K/mm3 (150-400); RED BLOOD CELL COUNT 2.95 M/mm3 (4.10-5.30); WHITE BLOOD CELL COUNT,WBC 13.88 K/mm3 (3.9-11.3)
[2024-03-18 19:13] LABS: HEMOGLOBIN 7.1 gm/dl (12.0-16.0)
[2024-03-18] MEDS ORDERED: Levalbuterol HCl 1.25 MG/3 ML Neb NEB PRN (19:22)
[2024-03-18] MEDS ORDERED: Albuterol 0.083% 2.5 MG/3 ML Neb Soln NEB PRN (19:26)
[2024-03-18 19:29] LABS: A/G RATIO 1.4 (1-2); ALBUMIN 3.5 g/dl (3.4-5.0); BILIRUBIN TOTAL 0.4 mg/dL (0.2-1.0); BUN/CREATININE RATIO 25.5 (14-18); C-REACTIVE PROTEIN 0.6 mg/dL (<0.30); CALCIUM 8.8 mg/dL (8.5-10.1); CREATININE 1.1 mg/dL (0.55-1.02); EST CRCL DRUG DOSING (CG) 46.46 mL/min
[2024-03-18] MEDS: Morphine 2 MG/ML SYRINGE IVPUSH PRN (20:43)
[2024-03-18] MEDS: Metoprolol Tartrate 25 MG Tab PO SCH (20:46)
[2024-03-18] MEDS: Montelukast 10 MG Tab PO SCH (20:47)
[2024-03-18] MEDS ORDERED: AZELASTINE HCL OP SCH (21:00)
[2024-03-19] MEDS: Acetaminophen/HYDROcodone 325-5 MG Tab PO PRN (00:40)
[2024-03-19 04:54] LABS: RED BLOOD CELL COUNT 2.55 M/mm3 (4.10-5.30); WHITE BLOOD CELL COUNT,WBC 9.23 K/mm3 (3.9-11.3)
[2024-03-19 04:55] LABS: HEMATOCRIT 20.3 % (37.0-47.0); HEMOGLOBIN 6.2 gm/dl (12.0-16.0); MEAN CORPUSCULAR HEMOGLOBIN 24.3 pg (28.0-32.0); MEAN CORPUSCULAR HGB CONC 30.5 g/dl (32.0-36.0); MEAN CORPUSCULAR VOLUME 79.6 fl (83.0-99.0)
[2024-03-19 04:56] LABS: BASOPHILS PERCENT AUTO 0.3 % (0.0-1.0); EOSINOPHILS ABSOLUTE AUTO 0.1 K/mm3 (0.0-0.4); EOSINOPHILS PERCENT AUTO 0.7 % (0.0-6.0); IMMATURE GRAN PERCENT AUTO 0.4 % (0.0-0.4); LYMPHOCYTES ABSOLUTE AUTO 0.8 K/mm3 (1.0-4.8); LYMPHOCYTES PERCENT AUTO 9.1 % (24.0-44.0); MEAN PLATELET VOLUME 9.8 fl (9.4-12.3); MONOCYTES ABSOLUTE AUTO 0.7 K/mm3 (0.0-0.8); MONOCYTES PERCENT AUTO 7.3 % (0.0-8.0); NEUTROPHILS ABSOLUTE AUTO 7.6 K/mm3 (1.8-7.7); NEUTROPHILS PERCENT AUTO 82.2 % (41.0-71.0); PLATELET COUNT,PLT 174 K/mm3 (150-400)
[2024-03-19 04:57] LABS: ANION GAP 13.8 (5-15); IMMATURE GRAN ABSOLUTE AUTO 0.04 K/mm3 (0.00-0.05); POTASSIUM,K 3.8 mEq/L (3.5-5.1)
[2024-03-19 04:58] LABS: CALCIUM 8.5 mg/dL (8.5-10.1); EST CRCL DRUG DOSING (CG) 51.1 mL/min
[2024-03-19] MEDS: Allopurinol 300 MG Tab PO SCH (08:53)
[2024-03-19] MEDS: Pantoprazole 40 MG Tab.CR PO SCH (08:53)
[2024-03-19] MEDS: Diltiazem 180 MG Cap.CD PO SCH (08:53)
[2024-03-19] MEDS: Rivaroxaban 10 MG Tab PO SCH (08:53)
[2024-03-19] MEDS: Sertraline 50 MG Tab PO SCH (08:54)
[2024-03-19] MEDS: Sodium Chloride 0.9% 500 ML IV ONE (09:01)
[2024-03-19 10:01] LABS: FERRITIN 28 ng/ml (8-252); IRON,FE 11 ug/dL (50-170)
[2024-03-19] MEDS: Furosemide 40 MG Tab PO PRN (12:42)
[2024-03-19 17:11] LABS: APPEARANCE,URINE CLEAR (Clear); BILIRUBIN,URINE NEGATIVE (Negative); COLOR,URINE YELLOW (Yellow); GLUCOSE,URINE NEGATIVE (Negative); KETONES,URINE NEGATIVE (Negative); LEUKOCYTE ESTERASE,URINE NEGATIVE (Negative); NITRITE,URINE NEGATIVE (Negative); OCCULT BLOOD,URINE 2+ (Negative); PH,URINE 6.5 (5.0-8.0); PROTEIN,URINE NEGATIVE (Negative); UROBILINOGEN,URINE 0.2 (0.2-1.0)
[2024-03-19 17:28] LABS: BACTERIA,URINE FEW /hpf (FEW); RBC,URINE 30-40 /hpf (0-5); SQUAMOUS EPITHELIAL CELLS,UR 0-5 /hpf (0-5); WBC,URINE 0-5 /hpf (0-5)
[2024-03-19 17:29] LABS: MUCUS,URINE FEW /hpf (FEW)
[2024-03-20 05:55] LABS: BASOPHILS ABSOLUTE AUTO 0.1 K/mm3 (0.0-0.2); BASOPHILS PERCENT AUTO 0.5 % (0.0-1.0); EOSINOPHILS ABSOLUTE AUTO 0.2 K/mm3 (0.0-0.4); EOSINOPHILS PERCENT AUTO 1.3 % (0.0-6.0); HEMATOCRIT 23.5 % (37.0-47.0); IMMATURE GRAN ABSOLUTE AUTO 0.08 K/mm3 (0.00-0.05); IMMATURE GRAN PERCENT AUTO 0.7 % (0.0-0.4); LYMPHOCYTES ABSOLUTE AUTO 0.9 K/mm3 (1.0-4.8); LYMPHOCYTES PERCENT AUTO 7.7 % (24.0-44.0); MEAN CORPUSCULAR HEMOGLOBIN 24.7 pg (28.0-32.0); MEAN CORPUSCULAR HGB CONC 31.5 g/dl (32.0-36.0); MEAN CORPUSCULAR VOLUME 78.6 fl (83.0-99.0); MEAN PLATELET VOLUME 9.7 fl (9.4-12.3); MONOCYTES ABSOLUTE AUTO 1.2 K/mm3 (0.0-0.8); MONOCYTES PERCENT AUTO 10.5 % (0.0-8.0); NEUTROPHILS ABSOLUTE AUTO 8.9 K/mm3 (1.8-7.7); NEUTROPHILS PERCENT AUTO 79.3 % (41.0-71.0); PLATELET COUNT,PLT 166 K/mm3 (150-400); RED BLOOD CELL COUNT 2.99 M/mm3 (4.10-5.30); WHITE BLOOD CELL COUNT,WBC 11.28 K/mm3 (3.9-11.3)
[2024-03-20 06:14] LABS: ANION GAP 11.5 (5-15); BUN/CREATININE RATIO 18.9 (14-18); CALCIUM 8.3 mg/dL (8.5-10.1); CREATININE 0.9 mg/dL (0.55-1.02); EST CRCL DRUG DOSING (CG) 56.78 mL/min; POTASSIUM,K 3.5 mEq/L (3.5-5.1)
[2024-03-20 06:23] LABS: HEMOGLOBIN 7.4 gm/dl (12.0-16.0)
[2024-03-20 10:13] LABS: IRON,FE 10 ug/dL (50-170); PERCENT FE SATURATION 3 % (20-55); TOTAL IRON BINDING CAPACITY 303 ug/dL (100-400); TRANSFERRIN 242 mg/dL (202-364)
[2024-03-20] MEDS: Sodium Ferric Gluconate Cmplex 125 MG in Sodium Chloride 0.9% 100 ML IV ONE (10:20)
[2024-03-20] MEDS: Sennosides 8.6 MG Tab PO SCH (21:24)
[2024-03-20] MEDS: Bisacodyl 5 MG Tab PO SCH (21:24)
[2024-03-21 04:54] LABS: BASOPHILS ABSOLUTE AUTO 0.1 K/mm3 (0.0-0.2); BASOPHILS PERCENT AUTO 0.6 % (0.0-1.0); EOSINOPHILS ABSOLUTE AUTO 0.3 K/mm3 (0.0-0.4); EOSINOPHILS PERCENT AUTO 2.3 % (0.0-6.0); HEMATOCRIT 23.5 % (37.0-47.0); IMMATURE GRAN ABSOLUTE AUTO 0.06 K/mm3 (0.00-0.05); IMMATURE GRAN PERCENT AUTO 0.6 % (0.0-0.4); LYMPHOCYTES ABSOLUTE AUTO 0.8 K/mm3 (1.0-4.8); LYMPHOCYTES PERCENT AUTO 7.6 % (24.0-44.0); MEAN CORPUSCULAR HEMOGLOBIN 24.4 pg (28.0-32.0); MEAN CORPUSCULAR HGB CONC 30.6 g/dl (32.0-36.0); MEAN CORPUSCULAR VOLUME 79.7 fl (83.0-99.0); MONOCYTES PERCENT AUTO 9.6 % (0.0-8.0); NEUTROPHILS ABSOLUTE AUTO 8.6 K/mm3 (1.8-7.7); NEUTROPHILS PERCENT AUTO 79.3 % (41.0-71.0); PLATELET COUNT,PLT 189 K/mm3 (150-400); RED BLOOD CELL COUNT 2.95 M/mm3 (4.10-5.30); WHITE BLOOD CELL COUNT,WBC 10.82 K/mm3 (3.9-11.3)
[2024-03-21 05:04] LABS: ANION GAP 9.2 (5-15); CALCIUM 8.1 mg/dL (8.5-10.1); EST CRCL DRUG DOSING (CG) 51.1 mL/min; POTASSIUM,K 3.2 mEq/L (3.5-5.1)
[2024-03-21 05:54] LABS: HEMOGLOBIN 7.2 gm/dl (12.0-16.0)
[2024-03-21] MEDS: Ferrous Sulfate 324 MG Tab.EC PO SCH (07:35)
[2024-03-21] MEDS: NS + KCl 20mEq/L 1,000 ML IV SCH (08:32)
[2024-03-21 11:43] VITALS: BP 139/50; PULSE 77
== END 2024-03-21 13:10 | disposition home or self-care (01) | DRG 563 ==
LOC: JD.ED 13:10 → JD.MS 18:28 → OBSVTOIN 18:28
PROVIDERS: ADMIT Student in an Organized Health Care Education/Training Program; ATTEND Student in an Organized Health Care Education/Training Program
PROC: 30233N1 Transfusion of Nonautologous Red Blood Cells into Peripheral Vein, Percutaneous Approach (ICD-10-PCS; principal; 2024-03-19)
DX: S42.292A Other displaced fracture of upper end of left humerus, initial encounter for closed fracture (principal); S42.291A Other displaced fracture of upper end of right humerus, initial encounter for closed fracture; Z68.42 Body mass index [BMI] 45.0-49.9, adult; E66.9 Obesity, unspecified; N17.9 Acute kidney failure, unspecified; W01.0XXA Fall on same level from slipping, tripping and stumbling without subsequent striking against object, initial encounter; H54.7 Unspecified visual loss; J45.909 Unspecified asthma, uncomplicated; K21.9 Gastro-esophageal reflux disease without esophagitis; M10.9 Gout, unspecified; M19.011 Primary osteoarthritis, right shoulder; M19.012 Primary osteoarthritis, left shoulder; Z96.659 Presence of unspecified artificial knee joint; Z96.649 Presence of unspecified artificial hip joint; I87.2 Venous insufficiency (chronic) (peripheral); I11.0 Hypertensive heart disease with heart failure; I50.9 Heart failure, unspecified; F32.A Depression, unspecified; E66.01 Morbid (severe) obesity due to excess calories; I48.0 Paroxysmal atrial fibrillation; D50.9 Iron deficiency anemia, unspecified; R31.29 Other microscopic hematuria; Z79.01 Long term (current) use of anticoagulants; Z79.2 Long term (current) use of antibiotics; Z79.51 Long term (current) use of inhaled steroids; Z79.899 Other long term (current) drug therapy; Z87.442 Personal history of urinary calculi; Z86.16 Personal history of COVID-19; Z98.890 Other specified postprocedural states; Z90.49 Acquired absence of other specified parts of digestive tract
CPT/HCPCS: 36415; 73030; 73060 ×2; 96374; 96375; 96376; 99285; J1170 ×2; J1200; J2060; J2765; J3490; 36430; 80048; 80053; 81001; 82728; 83540; 83735; 84466; 85018; 85025; 86140; 86850; 86900; 86901; 86922; 93005; 93010; 94660; 94760; 97110-GP; 97162-GP; 97530-GP; 99284; A9270-GY; J2270; J2916; J3480; J7040; P9016; U0002

== ENCOUNTER 2024-06-30 19:53 | Emergency (ER) | payer MEDICARE, OTHER ==
[2024-06-30 20:30] LABS: BASOPHILS ABSOLUTE AUTO 0.1 K/mm3 (0.0-0.2); BASOPHILS PERCENT AUTO 0.7 % (0.0-1.0); EOSINOPHILS ABSOLUTE AUTO 0.2 K/mm3 (0.0-0.4); EOSINOPHILS PERCENT AUTO 2.8 % (0.0-6.0); HEMATOCRIT 20.8 % (37.0-47.0); IMMATURE GRAN ABSOLUTE AUTO 0.04 K/mm3 (0.00-0.05); IMMATURE GRAN PERCENT AUTO 0.5 % (0.0-0.4); LYMPHOCYTES ABSOLUTE AUTO 0.9 K/mm3 (1.0-4.8); LYMPHOCYTES PERCENT AUTO 11.2 % (24.0-44.0); MEAN CORPUSCULAR HEMOGLOBIN 20.9 pg (28.0-32.0); MEAN CORPUSCULAR HGB CONC 27.9 g/dl (32.0-36.0); MEAN CORPUSCULAR VOLUME 74.8 fl (83.0-99.0); MEAN PLATELET VOLUME 10.1 fl (9.4-12.3); MONOCYTES ABSOLUTE AUTO 0.8 K/mm3 (0.0-0.8); MONOCYTES PERCENT AUTO 9.3 % (0.0-8.0); NEUTROPHILS ABSOLUTE AUTO 6.2 K/mm3 (1.8-7.7); NEUTROPHILS PERCENT AUTO 75.5 % (41.0-71.0); PLATELET COUNT,PLT 211 K/mm3 (150-400); RED BLOOD CELL COUNT 2.78 M/mm3 (4.10-5.30); WHITE BLOOD CELL COUNT,WBC 8.25 K/mm3 (3.9-11.3)
[2024-06-30] MEDS: Sodium Chloride 0.9% 1,000 ML IV SCH (20:49)
[2024-06-30 20:56] LABS: A/G RATIO 1.3 (1-2); ALBUMIN 3.7 g/dl (3.4-5.0); BILIRUBIN TOTAL 0.6 mg/dL (0.2-1.0); BUN/CREATININE RATIO 22.7 (14-18); C-REACTIVE PROTEIN 0.93 mg/dL (<0.30); CALCIUM 8.9 mg/dL (8.5-10.1); CREATININE 1.1 mg/dL (0.55-1.02); EST CRCL DRUG DOSING (CG) 44.66 mL/min; MAGNESIUM 2.2 mg/dL (1.8-2.4); PROTEIN TOTAL,TP 6.5 g/dl (6.4-8.2)
[2024-06-30 20:58] LABS: LACTIC ACID 1.3 mmol/L (0.4-2.0)
[2024-06-30 20:59] LABS: HEMOGLOBIN 5.8 gm/dl (12.0-16.0)
[2024-06-30 21:55] LABS: FERRITIN 16 ng/ml (8-252); IRON,FE 10 ug/dL (50-170); PERCENT FE SATURATION 3 % (20-55); TRANSFERRIN 297 mg/dL (202-364)
[2024-06-30 21:57] LABS: TOTAL IRON BINDING CAPACITY 371 ug/dL (100-400)
[2024-07-01] MEDS: Furosemide 40 MG/4 ML VIAL IVPUSH ONE (00:09)
[2024-07-01 00:55] LABS: APPEARANCE,URINE CLEAR (Clear); BILIRUBIN,URINE NEGATIVE (Negative); COLOR,URINE YELLOW (Yellow); GLUCOSE,URINE NEGATIVE (Negative); KETONES,URINE NEGATIVE (Negative); LEUKOCYTE ESTERASE,URINE TRACE (Negative); NITRITE,URINE NEGATIVE (Negative); OCCULT BLOOD,URINE NEGATIVE (Negative); PROTEIN,URINE NEGATIVE (Negative); UROBILINOGEN,URINE 0.2 (0.2-1.0)
[2024-07-01 01:13] LABS: BACTERIA,URINE RARE /hpf (FEW); EPITHELIAL CELLS,URINE 0-5 /hpf (0-5); MUCUS,URINE NOT SEEN /hpf (FEW); RBC,URINE NOT SEEN /hpf (0-5); WBC,URINE 0-5 /hpf (0-5)
[2024-07-01] MEDS: Metoclopramide 10 MG/2 ML SDV IVPUSH ONE (02:04)
[2024-07-01] MEDS: diphenhydrAMINE 50 MG/ML SDV IVPUSH ONE (02:04)
[2024-07-01 04:04] VITALS: BP 149/60; PULSE 78
== END 2024-07-01 03:58 | disposition home or self-care (01) ==
LOC: JD.ED 19:53
DX: D50.9 Iron deficiency anemia, unspecified (principal); K21.9 Gastro-esophageal reflux disease without esophagitis; I48.91 Unspecified atrial fibrillation; J45.909 Unspecified asthma, uncomplicated; E66.9 Obesity, unspecified; Z86.16 Personal history of COVID-19; Z79.02 Long term (current) use of antithrombotics/antiplatelets; Z79.899 Other long term (current) drug therapy; R06.02 Shortness of breath
CPT/HCPCS: 36415; 36430; 80048; 80053; 81001; 82607; 82728; 83540; 83605; 83735; 83880; 84443; 84466; 85025; 85652; 86140; 86850; 86900; 86901; 86922; 87086; 93005; 93010; 96361; 96374; 96375; 99284; 99284-25; J1200; J1940; J2765; J7030; P9016

== ENCOUNTER 2024-07-17 09:03 | Day surgery (SDC) | payer MEDICARE ==
[2024-07-17] MEDS: Lactated Ringers 1,000 ML IV SCH (09:50)
[2024-07-17] MEDS ORDERED: Propofol 200 MG/20 ML SDV ONE ×4 (10:42→12:14)
[2024-07-17] MEDS ORDERED: fentaNYL 100 MCG/2 ML SDV ONE (10:46)
[2024-07-17] MEDS ORDERED: Lidocaine 2% 5 ML SDV ONE (10:46)
[2024-07-17] MEDS ORDERED: Midazolam 1 MG/ML 2 ML SDV ONE (11:13)
[2024-07-17 13:26] VITALS: BP 130/70; PULSE 64
== END 2024-07-17 14:05 | disposition home or self-care (01) ==
LOC: JD.SDS 09:03
PROVIDERS: ATTEND Surgery
DX: D12.3 Benign neoplasm of transverse colon (principal); D12.4 Benign neoplasm of descending colon; K64.8 Other hemorrhoids; K57.31 Diverticulosis of large intestine without perforation or abscess with bleeding; D64.9 Anemia, unspecified; I50.9 Heart failure, unspecified; J45.909 Unspecified asthma, uncomplicated; I48.91 Unspecified atrial fibrillation; K21.9 Gastro-esophageal reflux disease without esophagitis; Z87.891 Personal history of nicotine dependence; Z79.01 Long term (current) use of anticoagulants; Z79.899 Other long term (current) drug therapy
CPT/HCPCS: 43235; 45380; J2250; J2704; J3010; J7120; 00813; J3490

== ENCOUNTER 2024-08-14 12:25 | Emergency (ER) | payer MEDICARE ==
[2024-08-14] MEDS: Acetaminophen 325 MG Tab PO ONE (14:11)
[2024-08-14 15:45] VITALS: BP 122/97; PULSE 85
== END 2024-08-14 15:30 | disposition home or self-care (01) ==
LOC: JD.ED 12:25
DX: S42.292A Other displaced fracture of upper end of left humerus, initial encounter for closed fracture (principal); I48.91 Unspecified atrial fibrillation; J45.909 Unspecified asthma, uncomplicated; E66.9 Obesity, unspecified; Z68.42 Body mass index [BMI] 45.0-49.9, adult; Z86.16 Personal history of COVID-19; Z90.49 Acquired absence of other specified parts of digestive tract; Z79.899 Other long term (current) drug therapy; W23.1XXA Caught, crushed, jammed, or pinched between stationary objects, initial encounter
CPT/HCPCS: 73060-26-LT; 73060-LT; 99284; A9270-GY

== ENCOUNTER 2024-09-25 10:12 | Emergency (ER) | payer MEDICARE, OTHER ==
[2024-09-25] MEDS: Sodium Chloride 0.9% 1,000 ML IV SCH (11:08)
[2024-09-25] MEDS: Sodium Chloride 0.9% 10 ML Syringe FLUSH PRN (11:08)
[2024-09-25] MEDS: HYDROmorphone 0.5 MG/0.5 ML Syringe IVPUSH ONE ×2 (11:08→13:48)
[2024-09-25] MEDS: Ketorolac 30 MG/ML SDV IVPUSH ONE (11:08)
[2024-09-25] MEDS: Ondansetron 4 MG/2 ML SDV IVPUSH ONE (11:08)
[2024-09-25 11:34] LABS: BASOPHILS PERCENT AUTO 0.7 % (0.0-1.0); EOSINOPHILS ABSOLUTE AUTO 0.1 K/mm3 (0.0-0.4); EOSINOPHILS PERCENT AUTO 2.2 % (0.0-6.0); HEMATOCRIT 36.9 % (37.0-47.0); HEMOGLOBIN 12.1 gm/dl (12.0-16.0); IMMATURE GRAN ABSOLUTE AUTO 0.01 K/mm3 (0.00-0.05); IMMATURE GRAN PERCENT AUTO 0.2 % (0.0-0.4); LYMPHOCYTES ABSOLUTE AUTO 0.7 K/mm3 (1.0-4.8); LYMPHOCYTES PERCENT AUTO 10.9 % (24.0-44.0); MEAN CORPUSCULAR HEMOGLOBIN 28.3 pg (28.0-32.0); MEAN CORPUSCULAR HGB CONC 32.8 g/dl (32.0-36.0); MEAN CORPUSCULAR VOLUME 86.4 fl (83.0-99.0); MEAN PLATELET VOLUME 9.6 fl (9.4-12.3); MONOCYTES ABSOLUTE AUTO 0.4 K/mm3 (0.0-0.8); MONOCYTES PERCENT AUTO 6.1 % (0.0-8.0); NEUTROPHILS ABSOLUTE AUTO 4.8 K/mm3 (1.8-7.7); NEUTROPHILS PERCENT AUTO 79.9 % (41.0-71.0); PLATELET COUNT,PLT 180 K/mm3 (150-400); RED BLOOD CELL COUNT 4.27 M/mm3 (4.10-5.30); WHITE BLOOD CELL COUNT,WBC 5.94 K/mm3 (3.9-11.3)
[2024-09-25 11:48] LABS: A/G RATIO 1.2 (1-2); ALANINE AMINOTRANSFERASE,ALT 30 U/L (14-59); ALBUMIN 3.7 g/dl (3.4-5.0); ALKALINE PHOSPHATASE 165 U/L (46-116); ANION GAP 10.2 (5-15); ASPARTATE AMNIOTRANSFERASE,AST 24 U/L (15-37); BILIRUBIN TOTAL 0.6 mg/dL (0.2-1.0); BLOOD UREA NITROGEN,BUN 24 mg/dL (7-18); CALCIUM 9.3 mg/dL (8.5-10.1); CARBON DIOXIDE,CO2 28 mEq/L (21-32); CHLORIDE,CL 105 mEq/L (98-107); CREATININE 1.2 mg/dL (0.55-1.02); ESTIMATED GFR 50 mL/min (>60); GLUCOSE RANDOM 104 mg/dL (70-99); LIPASE 30 U/L (16-77); POTASSIUM,K 4.2 mEq/L (3.5-5.1); PROTEIN TOTAL,TP 6.8 g/dl (6.4-8.2); SODIUM,NA 139 mEq/L (136-145)
[2024-09-25 13:40] LABS: APPEARANCE,URINE CLEAR (Clear); BILIRUBIN,URINE NEGATIVE (Negative); COLOR,URINE YELLOW (Yellow); GLUCOSE,URINE NEGATIVE (Negative); KETONES,URINE NEGATIVE (Negative); LEUKOCYTE ESTERASE,URINE NEGATIVE (Negative); NITRITE,URINE NEGATIVE (Negative); OCCULT BLOOD,URINE TRACE-INTACT (Negative); PH,URINE 6.5 (5.0-8.0); PROTEIN,URINE NEGATIVE (Negative); UROBILINOGEN,URINE 0.2 (0.2-1.0)
[2024-09-25 13:59] LABS: EPITHELIAL CELLS,URINE 0-5 /hpf (0-5); RBC,URINE 0-5 /hpf (0-5); WBC,URINE 0-5 /hpf (0-5)
[2024-09-25 14:00] LABS: BACTERIA,URINE FEW /hpf (FEW); MUCUS,URINE FEW /hpf (FEW)
[2024-09-25] MEDS: Cyclobenzaprine 10 MG Tab PO ONE (14:40)
[2024-09-25 16:32] VITALS: BP 148/78; PULSE 80
== END 2024-09-25 14:40 | disposition home or self-care (01) ==
LOC: JD.ED 10:12
DX: S22.080A Wedge compression fracture of T11-T12 vertebra, initial encounter for closed fracture (principal); J45.909 Unspecified asthma, uncomplicated; E66.9 Obesity, unspecified; Z86.16 Personal history of COVID-19; Z90.49 Acquired absence of other specified parts of digestive tract; Z96.649 Presence of unspecified artificial hip joint; Z79.899 Other long term (current) drug therapy; X58.XXXA Exposure to other specified factors, initial encounter
CPT/HCPCS: 36415; 74176; 80053; 81001; 83690; 85025; 96361; 96374; 96375; 96376; 99284; A9270; J1171; J1885; J2405; J7030